=== PATIENT | female | born 1955 | race Caucasian/White ===

== ENCOUNTER 2023-05-11 14:22 | Outpatient (OUT) | payer MEDICARE, OTHER, SELFPAY ==
[2023-05-11 15:42] LABS: Thyroid Stimulating Hormone 0.979 uIU/mL (0.358-3.740)
== END 2023-05-11 14:23 | disposition home or self-care (01) ==
LOC: LAB 14:26
PROVIDERS: PCP Internal Medicine; Visit Provider Internal Medicine
DX: E03.8 Other specified hypothyroidism (principal)
CPT/HCPCS: 36415; 84443

== ENCOUNTER 2023-11-12 14:46 | Outpatient (OUT) | payer MEDICARE, OTHER, SELFPAY ==
--- NOTE | 2023-11-12 14:52 | MM_ITS ---
Patient Name: RENETTA ATWOOD MR#: [id number] : 1955 Exam Date: 11/12/2023 Ordering Doctor: DR Vince Villegas D.O. RADIOLOGY REPORT PROCEDURE: MM TOMOSYNTHESIS SCREENING BI COMPARISON: MG MAMM SCREEN 3D BALTAZAR CAD, 11/05/2022. MG MAMM SCREEN 3D BALTAZAR CAD, 11/01/2021. INDICATIONS: screening Calculator Name NCI Breast Cancer Risk Assessment Tool 5 Year Breast Cancer Risk 3.20% Lifetime Breast Cancer Risk 10.80% Personal Breast Cancer No Personal Ovarian Cancer No Treatments None Family Cancers Mother with breast cancer at age 70; Grandmother-maternal with colon cancer at age 67. LOCATION: [facility] BREAST COMPOSITION: Scattered areas fibroglandular density. FINDINGS: DIAGNOSTIC CATEGORY 1--NEGATIVE. NO CHANGE FROM COMPARISON ASSESSMENT. Scattered benign-appearing calcifications are present. Scattered benign-appearing lymph nodes are present. RIGHT BREAST: No significant suspicious finding. Area focal asymmetry central breast, stable LEFT BREAST: No significant suspicious finding. RECOMMENDATIONS: ROUTINE MAMMOGRAM AND CLINICAL EVALUATION IN 12 MONTHS. PLEASE NOTE: A NORMAL MAMMOGRAM DOES NOT EXCLUDE THE POSSIBILITY OF BREAST CANCER. A CLINICALLY SUSPICIOUS PALPABLE LUMP SHOULD BE BIOPSIED. Dictated by: Phuc Longoria MD on 11/13/2023 at 07:20 Approved by: Phuc Longoria MD on 11/13/2023 at 07:21
== END 2023-11-12 14:47 | disposition home or self-care (01) ==
LOC: MAMMO 14:47
PROVIDERS: PCP Internal Medicine; Visit Provider Internal Medicine
DX: Z12.31 Encounter for screening mammogram for malignant neoplasm of breast (principal); Z80.3 Family history of malignant neoplasm of breast; Z80.0 Family history of malignant neoplasm of digestive organs
CPT/HCPCS: 77063; 77067

== ENCOUNTER 2024-04-04 10:53 | Outpatient (OUT) | payer MEDICARE, OTHER, SELFPAY ==
--- NOTE | 2024-04-04 11:00 | XR_ITS ---
[address] [address] Patient Name: RENETTA ATWOOD MRN: [id number] date: 1955 Sex: F Assigned Patient Location: [facility] Current Patient Location: Accession/Order Number: [id number] Exam Date: 04/04/2024 11:07 Report Date: 04/05/2024 09:43 At the request of: MARYCRUZ SAUCEOD Procedure: XR femur RT 2V PROCEDURE: XR femur RT 2V HISTORY: Atrophy Of Muscle Of Right Lower Leg M62.561 COMPARISON: None. FINDINGS: BONES:No fracture, dislocation, bone lesion. Mild degenerative change of the knee joint. SOFT TISSUES:No visible soft tissue swelling. EFFUSION:None visible. OTHER: Negative. XR/XR femur RT 2V IMPRESSION: 1. No appreciable soft tissue abnormality. Consider MRI of the leg if clinical concern. 2. Mild degenerative changes of the knee joint. Unremarkable hip joint. 3. No acute bone abnormality or suspicious lesion. Electronically authenticated by: ALIS PORTER Date: 04/05/2024 09:43
== END 2024-04-04 10:54 | disposition home or self-care (01) ==
LOC: RAD 10:56
PROVIDERS: PCP Internal Medicine; Visit Provider Internal Medicine
DX: M62.561 Muscle wasting and atrophy, not elsewhere classified, right lower leg (principal)
CPT/HCPCS: 73552

== ENCOUNTER 2024-04-13 09:53 | Outpatient (OUT) | payer MEDICARE, OTHER, SELFPAY ==
--- OUTSIDE RECORDS SUMMARY | 2024-04-13 10:09 | XMS_ITS | CCD ---
Author Organization [facility] Care Team Providers Care Field Tax Auditor Name Role Phone Kalyan Guzman Attending Provider Vince Villegas Primary Care Provider SHERYL, DR JOEL Admitting Unavailable BALL, DR JOEL Attending Unavailable BALL, DR JOEL Primary Care Unavailable BALL, DR JOEL Consulting Unavailable BALL, DR JOEL Admitting Unavailable BALL, DR JOEL Attending Unavailable BALL, DR JOEL Primary Care Unavailable BALL, DR JOEL Consulting Unavailable ZIEBER, DR CABRERA Ly Consulting Unavailable JAROD, DR DRAKE Nguyen Admitting Unavailable JAROD, DR DRAKE Nguyen Attending Unavailable SHERYL, DR JOEL Primary Care Unavailable WEST, DR DRAKE Nguyen Consulting Unavailable Vince Villegas Unavailable Kalyan Guzman Unavailable DO Vince Villegas Primary Care Provider MD Kalyan Guzman Attending Provider Kalyan Guzman Attending Unavailable Kalyan Guzman Admitting Unavailable Vince Villegas Primary Care Unavailable Vince Villegas Primary Care Unavailable Kalyan Guzman Attending Unavailable Kalyan Guzman Admitting Unavailable KELBLEY, FLACO Attending Unavailable SUE, ERIN P Referring Unavailable KELBLEY, FLACO Attending Unavailable SUE, ERIN P Referring Unavailable KELBLEY, FLACO Attending Unavailable SUE, ERIN P Referring Unavailable KAREL CHINCHILLA Attending Unavailable JJ MOTA Referring Unavailable HANH WRIGHT Attending Unavailable SUE, ERIN P Referring Unavailable TATTERSALLHANH Attending Unavailable TATTERSHANH LOZANO Attending Unavailable SUE, ERIN P Referring Unavailable HANH WRIGHT Attending Unavailable JJ MOTA Referring Unavailable Allergies Allergy Classification Reported Allergen(s) Allergy Type Date of Onset Reaction(s) Facility (8 sources) Adhesive agent Drug allergy Unknown Evoz Other (8 sources) Adhesive Tape Drug allergy Unknown Evoz Other Medications Current Medications Medication Drug Class(es) Dates Sig (Normalized) Sig (Original) Cream Base No.47 (Bulk) (Base, Pcca Vanpen) cream (2 sources) Start: 02-13-2021 Cream Base No.47 (Bulk) (Base, Pcca Vanpen) cream Active 1 APPLIC TOPICAL As Directed February 13, 2021 12:00am levothyroxine sodium 0.05 mg oral tablet (11 sources) l-Thyroxine Start: 02-13-2021 take 50 ug by mouth once daily Levothyroxine Active 50 MCG PO Daily February 13, 2021 12:00am take 1 tablet by mouth once blessing y Levothyroxine Sodium 50 mcg TAKE 1 TABLET BY MOUTH DAILY for 30 Active phentermine hydrochloride 37.5 mg oral tablet (9 sources) Sympathomimetic Amine Anorectic Start: 04-13-2023 take 1 tablet by mouth once daily before breakfast Adipex-P 37.5 MG 1 tablet before breakfast Orally Once a day for 30 days May, Active Completed/Discontinued Medications Medication Drug Class(es) Dates Sig (Normalized) Sig (Original) omeprazole 20 mg oral tablet (2 sources) Proton Pump Inhibitor Start: 02-13-2021 End: 06-01-2023 take 20 mg by mouth twice daily Omeprazole Magnesium Discontinued 20 MG PO Twice daily 112 56 February 13, 2021 12:00am June 01, 2023 7:40am triamcinolone acetonide 40 mg/ml injectable suspension (10 sources) Corticosteroid Start: 02-19-2023 Kenalog-40 February, 40 mg Problems Active Problems Problem Classification Problem Date Documented Da te Episodic/Chronic Coagulation and hemorrhagic disorders (9 sources) Thrombocytopenic disorder; Translations: [Thrombocytopenia, unspecified] Chronic Inflammation; infection of eye (except that caused by tuberculosis or sexually transmitteddisease) (1 source) Acute atopic conjunctivitis, unspecified eye Episodic Other ear and sense organ disorders (9 sources) Sensorineural hearing loss, bilateral; Translations: [Sensorineural hearing loss, bilateral] Chronic Other gastrointestinal disorders (10 sources) Dysphagia; Translations: [Dysphagia, unspecified] Episodic Other gastrointestinal disorders (2 sources) Other specified diseases of intestine; Translations: [Other specified diseases of intestine] Onset: 3 Episodic Other nutritional; endocrine; and metabolic disorders (9 sources) Body mass index 30+ - obesity; Translations: [Body mass index (BMI) 30.0-30.9, adult] Chronic Other nutritional; endocrine; and metabolic disorders (9 sources) Obesity; Translations: [Other obesity due to excess calories] Chronic Other nutritional; endocrine; and metabolic disorders (9 sources) Overweight; Translations: [Overweight] Episodic Other nutritional; endocrine; and metabolic disorders (2 sources) Overweight Episodic Other screening for suspected conditions (not mental disorders or infectious disease) (4 sources) Encounter for screening mammogram for malignant neoplasm of breast; Translations: [ENC SCR MAMMO MALIG NEOPLASM BREAST] Onset: 3 Episodic Other upper respiratory disease (10 sources) Allergic rhinitis due to pollen; Translations: [Allergic rhinitis due to pollen] Chronic Other upper respiratory disease (1 source) Allergic rhinitis due to pollen Chronic Residual codes; unclassified (1 source) Family history of malignant neoplasm of breast; Translations: [FAMILY HX MALIG NEOPLASM OF BREAST] Onset: 3 Episodic Residual codes; unclassified (1 source) Family history of malignant neoplasm of digestive organs; Translations: [FAM HX MALIG NEOPLASM DIGESTIV ORGN] Onset: 3 Episodic Thyroid disorders (20 sources) Autoimmune thyroiditis; Translations: [Autoimmune thyroiditis] Chronic Unclassified (1 source) Encounter for screening for malignant neoplasm of colon; Translations: [Encounter for screening for malignant neoplasm of colon] Onset: 3 Viral infection (1 source) COVID-19; Translations: [COVID-19] Onset: 2 Past or Other Problems Problem Classification Problem Date Documented Da te Episodic/Chronic Immunizations and screening for infectious disease (4 sources) Encounter for immunization; Translations: [ENCOUNTER FOR IMMUNIZATION] Onset: 03-06-2022 Episodic Results Test Name Value Interpretation Reference Range Facility CT abdomen pelvis w conon CT abdomen pelvis w [facility] [place] [address] CT Scan Report Signed Patient: Renetta Atwood MR#: [id number] : 1955 Acct:[id number] Age/Sex: 67 / F ADM Date: 06/24/23 Loc: CT Room: Type: [facility] Attending Dr: Kalyan Guzman MD Copies to: Kalyan Guzman MD Ordering Provider: Kalyan Guzman MD Date of Service: 06/24/23 CT/CT abdomen pelvis w con: K63.86 CT ABDOMEN AND PELVIS WITH INTRAVENOUS CONTRAST: CLINICAL HISTORY: Colon polyp. COMPARISON: None TECHNIQUE: Spiral images were obtained through the abdomen and pelvis following the administration of intravenous contrast. This CT exam was performed using one or more following dose reduction techniques: Automated exposure control, adjustment of the mA and/or kV according to patient size, or use of iterative reconstruction technique. FINDINGS: Lung Bases: [Minimal scarring.] Organs:Liver gallbladder portal vein pancreas spleen and adrenal glands appear unremarkable other than a indeterminate lesion involving the spleen measuring 2 cm in greatest axial dimension. Bilateral parapelvic cysts are noted. No enhancing renal mass or hydronephrosis. Abdominal aorta appears normal in caliber.[ GI: Stomach is grossly unremarkable. Small bowel appears nondilated. Left colon diverticulosis. No abnormal wall thickening or inflammatory changes are seen.[ Pelvis:[Urinary bladder is grossly unremarkable. Uterus has been removed. No adnexal mass.] Peritoneum/Retroper itoneum:No free air, free fluid or lymphadenopathy.[ Abd wall/Bones:Abdomina l wall demonstrates no acute findings. Osseous structures demonstrate degenerative change.[ CT/CT abdomen pelvis w con IMPRESSION: 1. No acute findings. No acute colonic abnormality is seen. 2. Colonic diverticulosis. 3. 2 cm indeterminate lesion involving the spleen. Finding is likely benign given that there is no history of cancer. Attention on follow-up is recommended. Impression dictated by: Michael Keenan Jr., D.O.06/24/2023 2:20 PM Dictation Location: [place] [address] Transcribed By: [facility] 06/24/23 1420 Dictated By: Michael Keenan Jr, DO 06/24/23 1418 Signed By: 06/24/23 1420 [facility] Alanine aminotransferase [En zymatic activity/volume] in Serum or PlasmaOrdered By: Kalyan Guzman on 06-01-2023 ALT [Catalytic activity/Vol] 9 U/L 7-52 [facility] Albumin [Mass/volume] in Ser um or Plasma by Bromocresol green (BCG) dye binding methoOrdered By: Kalyan Guzman on 06-01-2023 Albumin BCG dye [Mass/Vol] 4.4 g/dL 3.5-5.7 [facility] Alkaline phosphatase [Enzyma tic activity/volume] in Serum or PlasmaOrdered By: Kalyan Guzman on 06-01-2023 ALP [Catalytic activity/Vol] 72 U/L 34-104 [facility] Aspartate aminotransferase [ Enzymatic activity/volume] in Serum or PlasmaOrdered By: Kalyan Guzman on 06-01-2023 AST [Catalytic activity/Vol] 22 U/L 13-39 [facility] Band form neutrophils/100 WB C Manual cnt (Bld)Ordered By: Kalyan Guzman on 06-01-2023 Band form neutrophils/100 WBC (Bld) 2 % 0-5 [facility] Basophils Auto (Bld) [#/Vol] Ordered By: Kalyan Guzman on 06-01-2023 Basophils (Bld) [#/Vol] N/A F [facility] Basophils/100 WBC Auto (Bld) Ordered By: Kalyan Guzman on 06-01-2023 Basophils/100 WBC (Bld) N/A F [facility] Basophils/100 WBC Manual cnt (Bld)Ordered By: Kalyan Guzman on 06-01-2023 Basophils/100 WBC (Bld) 1 % 0-2 F [facility] Bilirubin.total [Mass/volume ] in Serum or PlasmaOrdered By: Kalyan Guzman on 06-01-2023 Bilirubin [Mass/Vol] 0.9 mg/dL 0.3-1.0 [facility] Calcium [Mass/volume] in Ser um or PlasmaOrdered By: Kalyan Guzman on 06-01-2023 Calcium [Mass/Vol] 9.4 mg/dL 8.6-10.3 [facility] Carbon dioxide, total [Moles /volume] in Serum or PlasmaOrdered By: Kalyan Guzman on 08-14-2023 CO2 [Moles/Vol] 25.2 mmol/L 21.0-31.0 [facility] Chloride [Moles/volume] in S javier or PlasmaOrdered By: Kalyan Guzman on 06-01-2023 Chloride [Moles/Vol] 108 mmol/L 98-107 [facility] Comprehensive Metabolic Pane luis enrique 06-01-2023 Albumin [Mass/Vol] 4.4 g/dL Normal 3.5-5.7 [facility] Comment on above: Performed By: #### D IFF CBC, CEA, CMP #### [facility] [address] Albumin/Globulin [Mass ratio] 1.6 {ratio} Normal [facility] Comment on above: Performed By: #### D IFF CBC, CEA, CMP #### [facility] [address] ALP [Catalytic activity/Vol] 72 U/L Normal 34-104 [facility] Comment on above: Performed By: #### D IFF CBC, CEA, CMP #### [facility] [address] ALT [Catalytic activity/Vol] 9 U/L Normal 7-52 [facility] Comment on above: Performed By: #### D IFF CBC, CEA, CMP #### [facility] [address] Anion gap [Moles/Vol] 10.9 mmol/L Normal 6.0-15.0 [facility] Comment on above: Performed By: #### D IFF CBC, CEA, CMP #### [facility] [address] [place] [address] [place] AST [Catalytic activity/Vol] 22 U/L Normal 13-39 [facility] Comment on above: Performed By: #### D IFF CBC, CEA, CMP #### [facility] [address] [place] [address] [place] Bilirubin [Mass/Vol] 0.9 mg/dL Normal 0.3-1.0 [facility] Comment on above: Performed By: #### D IFF CBC, CEA, CMP #### [facility] [address] Calcium [Mass/Vol] 9.4 mg/dL Normal 8.6-10.3 [facility] Comment on above: Performed By: #### D IFF CBC, CEA, CMP #### [facility] [address] Chloride [Moles/Vol] 108 mmol/L High 98-107 [facility] Comment on above: Performed By: #### D IFF CBC, CEA, CMP #### [facility] [address] CO2 [Moles/Vol] 25.2 mmol/L Normal 21.0-31.0 [facility] Comment on above: Performed By: #### D IFF CBC, CEA, CMP #### [facility] [address] Creatinine [Mass/Vol] 0.72 mg/dL Normal 0.60-1.20 [facility] Comment on above: Performed By: #### D IFF CBC, CEA, CMP #### [facility] [address] Creatinine Clr Calc Pharmacy 68.33 [facility] Comment on above: Result Comment: PERF ORMED BY: [place] [address] PATHOLOGIST SCRAP WORKER ESTEE KAPOOR M.D. Performed By: #### D IFF CBC, CEA, CMP #### [facility] [address] GFR/1.73 sq M.predicted MDRD (S/P/Bld) [Vol rate/Area] mL/min/{1.73_m2} [facility] Comment on above: Performed By: #### D IFF CBC, CEA, CMP #### [facility] [address] Globulin (S) [Mass/Vol] 2.7 g/dL Normal [facility] Comment on above: Performed By: #### D IFF CBC, CEA, CMP #### [facility] [address] [place] [address] [place] Glucose [Mass/Vol] 89 mg/dL Normal 70-100 [facility] Comment on above: Result Comment: [facility] Glucose Reference Range is dependent on time and content of last meal. Glucose of more than 200 mg/dL in a nonstressed, ambulatory subject supports the diagnosis of Diabetes Mellitus. ADA recommended reference range Performed By: #### D IFF CBC, CEA, CMP #### [facility] [address] Potassium [Moles/Vol] 4.1 mmol/L Normal 3.5-5.1 [facility] Comment on above: Performed By: #### D IFF CBC, CEA, CMP #### [address] Protein [Mass/Vol] 7.1 g/dL Normal 6.4-8.9 [facility] Comment on above: Performed By: #### D IFF CBC, CEA, CMP #### [place] [address] [place] Sodium [Moles/Vol] 140 mmol/L Normal 136-145 [facility] Comment on above: Performed By: #### D IFF CBC, CEA, CMP #### [place] [address] [place] Urea nitrogen [Mass/Vol] 14 mg/dL Normal 7-25 [facility] Comment on above: Performed By: #### D IFF CBC, CEA, CMP #### [facility] [address] [place] [address] [place] Creatinine [Mass/volume] in Serum or PlasmaOrdered By: Kalyan Guzman on 06-01-2023 Creatinine [Mass/Vol] 0.72 mg/dL 0.60-1.20 [facility] Diff and CBCon 06-01-2023 Band form neutrophils/100 WBC (Bld) 2 % Normal 0-5 [facility] Comment on above: Performed By: #### D IFF CBC, CEA, CMP #### [facility] [address] [place] [address] Basophils/100 WBC (Bld) 1 % Normal 0-2 F [facility] Comment on above: Performed By: #### D IFF CBC, CEA, CMP #### [address] Eosinophils/100 WBC (Bld) 1 % Normal 1-3 [facility] Comment on above: Performed By: #### D IFF CBC, CEA, CMP #### [address] Erythrocyte distribution width (RBC) [Ratio] 13.8 % Normal 11.9-15.3 [facility] Comment on above: Performed By: #### D IFF CBC, CEA, CMP #### [address] Hematocrit (Bld) [Volume fraction] 42.6 % Normal 34.0-46.4 [facility] Comment on above: Performed By: #### D IFF CBC, CEA, CMP #### [address] Hemoglobin (Bld) [Mass/Vol] 13.9 g/dL Normal 11.8-15.4 [facility] Comment on above: Performed By: #### D IFF CBC, CEA, CMP #### [address] Lymphocytes/100 WBC (Bld) 22 % Normal 18-42 [facility] Comment on above: Performed By: #### D IFF CBC, CEA, CMP #### [address] MCH (RBC) [Entitic mass] 29.2 pg Normal 24.7-34.3 [facility] Comment on above: Performed By: #### D IFF CBC, CEA, CMP #### [address] MCV (RBC) [Entitic vol] 89.2 fL Normal 80-100 F [facility] Comment on above: Performed By: #### D IFF CBC, CEA, CMP #### [address] [place] [address] [place] Mean Corpuscular HGB Conc 32.8 g/dL Normal 32.0-35.0 [facility] Comment on above: Performed By: #### D IFF CBC, CEA, CMP #### [facility] [address] Monocytes/100 WBC (Bld) 20 % High 2-11 F [facility] Comment on above: Performed By: #### D IFF CBC, CEA, CMP #### [facility] [address] Platelet Estimate Normal Normal Normal [facility] Comment on above: Performed By: #### D IFF CBC, CEA, CMP #### [address] Platelet mean volume (Bld) [Entitic vol] 7.8 fL Normal 6.3-10.7 [facility] Comment on above: Performed By: #### D IFF CBC, CEA, CMP #### [address] Platelet Morphology Normal Normal Normal [facility] Comment on above: Result Comment: PERF ORMED BY: [place] [address] PATHOLOGIST SCRAP WORKER ESTEE KAPOOR M.D. Performed By: #### D IFF CBC, CEA, CMP #### [place] [address] [place] Platelets (Bld) [#/Vol] 157 10*3/uL Normal 150-450 [facility] Comment on above: Performed By: #### D IFF CBC, CEA, CMP #### [place] [address] [place] RBC (Bld) [#/Vol] 4.77 10*6/uL Normal 3.60-5.00 [facility] Comment on above: Performed By: #### D IFF CBC, CEA, CMP #### [address] RBC morphology finding Nom (Bld) Normal Normal Normal [facility] Comment on above: Performed By: #### D IFF CBC, CEA, CMP #### [facility] [address] [place] [address] [place] Segmented neutrophils/100 WBC (Bld) 54 % Normal 50-70 [facility] Comment on above: Performed By: #### D IFF CBC, CEA, CMP #### [facility] [address] [place] [address] [place] WBC (Bld) [#/Vol] 4.9 10*3/uL Normal 3.8-11.6 [facility] Comment on above: Performed By: #### D IFF CBC, CEA, CMP #### [facility] [address] [place] [address] [place] Eosinophils Auto (Bld) [#/Vo l]Ordered By: Kalyan Guzman on 06-01-2023 Eosinophils (Bld) [#/Vol] N/A [facility] Eosinophils/100 WBC Auto (Bl d)Ordered By: Kalyan Guzman on 06-01-2023 Eosinophils/100 WBC (Bld) N/A [facility] Eosinophils/100 WBC Manual c nt (Bld)Ordered By: Kalyan Guzman on 06-01-2023 Eosinophils/100 WBC (Bld) 1 % 1-3 [facility] Erythrocyte distribution wid th Auto (RBC) [Ratio]Ordered By: Kalyan Guzman on 06-01-2023 Erythrocyte distribution width (RBC) [Ratio] 13.8 % 11.9-15.3 [facility] Globulin Calc (S) [Mass/Vol] Ordered By: Kalyan Guzman on 06-01-2023 Globulin (S) [Mass/Vol] 2.7 g/dL F [facility] Glucose [Mass/volume] in Ser um or PlasmaOrdered By: Kalyan Guzman on 06-01-2023 Glucose [Mass/Vol] 89 mg/dL 70-100 [facility] Comment on above: ADA recommended refe rence rangeRandom Glucose Reference Range is dependent on time and content of last meal. Glucose of more than 200 mg/dL in a nonstressed, ambulatory subject supports the diagnosis of Diabetes Mellitus. Hematocrit Auto (Bld) [Volum e fraction]Ordered By: Kalyan Guzman on 06-01-2023 Hematocrit (Bld) [Volume fraction] 42.6 % 34.0-46.4 [facility] Hemoglobin [Mass/volume] in BloodOrdered By: Kalyan Guzman on 06-01-2023 Hemoglobin (Bld) [Mass/Vol] 13.9 g/dL 11.8-15.4 [facility] Luis Enrique 06-01-2023 L Specimen: [id number] Received: 06/01/23 Status: DERRELL Lester Num: [id number] Spec Type: Surgical Subm Dr: Kalyan Guzman MD Tissues: A Colon Biopsy (TRANSVERSE POLYP) B Colon Biopsy (DESCENDING POLYP) Procedures: JJ/Demetris, Ugo/Fiorella L4/2 Age/ Patient Sex Location Account Attending Physician Renetta Atwood 67/F [id number] Kalyan Guzman MD SPEC NUM: [id number] RECD: 06/01/23 STATUS: DERRELL BATISTA NUM: [id number] TONYA: 06/01/23 DR: Kalyan Guzman MD ENTERED: 06/01/23 [facility] DR: SPEC TYPE: Surgical DEPT: S ORDERED: HE/4, Gross/Micro L4/2 ORDERED: HE/4, Gross/Micro L4/2 Pathological Diagnosis A. Colon, transverse, polyp, biopsy: - Fragments of tubular adenoma(s) B. Colon, descending, polyp, biopsy: - Fragments of tubulovillous adenoma(s) Clinical Information Screen Gross Description A. Received in formalin labeled with the patient's name, date of and transverse polyp are two cruz tissues averaging 0.3 cm. Entirely submitted in one cassette labeled A1. B. Received in formalin labeled with the patient's name, date of and descending polyp are multiple cruz tissues measuring 2.3 x 0.7 x 0.3 cm in aggregate. Entirely submitted in one cassette labeled B1. Specimen: [id number] Received: 06/01/23 Status: DERRELL Batista Num: [id number] Spec Type: Surgical Subm Dr: Kalyan Guzman MD Tissues: A Colon Biopsy (TRANSVERSE POLYP) B Colon Biopsy (DESCENDING POLYP) Procedures: HE/4, Gross/Micro L4/2 Patient: Renetta Atwood [id number] (Continued) Specimen: [id number] Received: 06/01/23 (Continued) Signed (signatur e on file) Mike Chen MD 06/03/23 0952 Specimen: [id number] Received: 06/01/23 Status: DERRELL Batista Num: [id number] Spec Type: Surgical Subm Dr: Kalyan Guzman MD Tissues: A Colon Biopsy (TRANSVERSE POLYP) B Colon Biopsy (DESCENDING POLYP) Procedures: JJ/Demetris, Gross/Micro L4/2 Patient: Renetta Atwood [id number] (Continued) Specimen: [id number] Received: 06/01/23 (Continued) Microscopic Description A. Two H E slides reviewed. The microscopic examination confirms the diagnosis. B. Two H E slides reviewed. The microscopic examination confirms the diagnosis. CPT Codes 72754y two Specimen: [id number] Received: 06/01/23 Status: DERRELL Batista Num: [id number] Spec Type: Surgical Subm Dr: Kalyan Guzman MD Tissues: A Colon Biopsy (TRANSVERSE POLYP) B Colon Biopsy (DESCENDING POLYP) Procedures: HE/Demetris, Gross/Micro L4/2 Patient: Renetta Atwood [id number] (Continued) Signed (signatur e on file) Mike Chen MD 06/03/23 0952 Normal [facility] Leukocytes [#/volume] correc rajesh for nucleated erythrocytes in Blood by Automated counOrdered By: Kalyan Guzman on 06-01-2023 WBC corrected for nucl RBC Auto (Bld) [#/Vol] 4.9 10*3/uL 3.8-11.6 [facility] Lymphocytes Auto (Bld) [#/Vo l]Ordered By: Kalyan Guzman on 06-01-2023 Lymphocytes (Bld) [#/Vol] N/A [facility] Lymphocytes/100 WBC Auto (Bl d)Ordered By: Kalyan Guzman on 06-01-2023 Lymphocytes/100 WBC (Bld) N/A [facility] Lymphocytes/100 WBC Manual c nt (Bld)Ordered By: Kalyan Guzman on 06-01-2023 Lymphocytes/100 WBC (Bld) 22 % 18-42 [facility] MCH Auto (RBC) [Entitic mass ]Ordered By: Kalyan Guzman on 06-01-2023 MCH (RBC) [Entitic mass] 29.2 pg 24.7-34.3 [facility] MCHC Auto (RBC) [Mass/Vol]Or dered By: Kalyan Guzman on 06-01-2023 MCHC (RBC) [Mass/Vol] 32.8 g/dL 32.0-35.0 [facility] MCV Auto (RBC) [Entitic vol] Ordered By: Kalyan Guzman on 06-01-2023 MCV (RBC) [Entitic vol] 89.2 fL 80-100 F [facility] Monocytes Auto (Bld) [#/Vol] Ordered By: Kalyan Guzman on 06-01-2023 Monocytes (Bld) [#/Vol] N/A F [facility] Monocytes/100 WBC Auto (Bld) Ordered By: Kalyan Guzman on 06-01-2023 Monocytes/100 WBC (Bld) N/A F [facility] Monocytes/100 WBC Manual cnt (Bld)Ordered By: Kalyan Guzman on 06-01-2023 Monocytes/100 WBC (Bld) 20 % 2-11 F [facility] Neutrophils Auto (Bld) [#/Vo l]Ordered By: Kalyan Guzman on 06-01-2023 Neutrophils (Bld) [#/Vol] N/A [facility] Neutrophils/100 WBC Auto (Bl d)Ordered By: Kalyan Guzman on 06-01-2023 Neutrophils/100 WBC (Bld) N/A [facility] No Panel InformationOrdered By: Kalyan Guzman on 06-01-2023 Estimated GFR (CKD-EPI) > 60.0 mL/Min [facility] Creatinine Clearance (Chem 68.33 [facility] Nucleated erythrocytes [Pres ence] in Blood by Automated countOrdered By: Kalyan Guzman on 06-01-2023 Nucleated RBC Auto Ql (Bld) N/A [facility] Platelet adequacy [Presence] in Blood by Light microscopyOrdered By: Kalyan Guzman on 06-01-2023 Platelets LM Ql (Bld) Normal Normal [facility] Platelet mean volume Auto (B ld) [Entitic vol]Ordered By: Kalyan Guzman on 06-01-2023 Platelet mean volume (Bld) [Entitic vol] 7.8 fL 6.3-10.7 [facility] Platelet morphology finding [Identifier] in BloodOrdered By: Kalyan Guzman on 06-01-2023 Platelet morphology finding Nom (Bld) Normal Normal [facility] Platelets Auto (Bld) [#/Vol] Ordered By: Kalyan Guzman on 06-01-2023 Platelets (Bld) [#/Vol] 157 10*3/uL 150-450 [facility] Potassium [Moles/volume] in Serum or PlasmaOrdered By: Kalyan Guzman on 06-01-2023 Potassium [Moles/Vol] 4.1 mmol/L 3.5-5.1 [facility] Protein [Mass/volume] in Ser um or PlasmaOrdered By: Kalyan Guzman on 06-01-2023 Protein [Mass/Vol] 7.1 g/dL 6.4-8.9 [facility] RBC Auto (Bld) [#/Vol]Ordere d By: Kalyan Guzman on 06-01-2023 RBC (Bld) [#/Vol] 4.77 10*6/uL 3.60-5.00 [facility] RBC morphologyOrdered By: Barbi Guzman on 06-01-2023 RBC morphology finding Nom (Bld) Normal Normal [facility] Segmented neutrophils/100 WB C Manual cnt (Bld)Ordered By: Kalyan Guzman on 06-01-2023 Segmented neutrophils/100 WBC (Bld) 54 % 50-70 [facility] Serum or plasma albumin/glob ulin mass ratioOrdered By: Kalyan Guzman on 06-01-2023 Albumin/Globulin [Mass ratio] 1.6 {ratio} [facility] Serum or plasma anion gap de terminationOrdered By: Kalyan Guzman on 06-01-2023 Anion gap [Moles/Vol] 10.9 mmol/L 6.0-15.0 [facility] Serum or plasma carcinoembry onic antigen measurement (mass/volume)Ordered By: Kalyan Guzman on 06-01-2023 Carcinoembryonic Ag [Mass/Vol] 1.6 ng/mL 0.0-3.0 [facility] Sodium [Moles/volume] in Ser um or PlasmaOrdered By: Kalyan Guzman on 06-01-2023 Sodium [Moles/Vol] 140 mmol/L 136-145 [facility] Urea nitrogen [Mass/volume] in Serum or PlasmaOrdered By: Kalyan Guzman on 08-14-2023 Urea nitrogen [Mass/Vol] 14 mg/dL 7-25 [facility] WBC Auto (Bld) [#/Vol]Ordere d By: Kalyan Diingris on 06-01-2023 WBC (Bld) [#/Vol] 4.9 10*3/uL 3.8-11.6 [facility] MG MAMM SCREEN 3D BALTAZAR CADon 11-05-2022 MG MAMM SCREEN 3D BALTAZAR CAD Patient: RENETTA ATWOOD Exam Date: 11/05/2022 : 1955 Gender:F Ordering : DR VINCE VILLEGAS D.O. Admission #: [id number] Family : Order #: [id number] CLICK HERE TO VIEW EXAM RADIOLOGY REPORT PROCEDURE: MAMMOGRAM SCREENING 3D BILATERAL CAD COMPARISON: MG MAMM SCREEN BALTAZAR W CAD, 09/22/2019. MG MAMM SCREEN BALTAZAR W CAD, 10/16/2020. MG MAMM SCREEN 3D BALTAZAR CAD, 11/01/2021. INDICATIONS: Screening mammography Calculator Name NCI Breast Cancer Risk Assessment Tool 5 Year Breast Cancer Risk 3.20% Lifetime Breast Cancer Risk 11.30% Personal Breast Cancer No Personal Ovarian Cancer No Treatments None Family Cancers Mother with breast cancer at age 70; Grandmother-materna l with colon cancer at age 67. LOCATION: [facility] BREAST COMPOSITION: Scattered areas fibroglandular density. FINDINGS: DIAGNOSTIC CATEGORY 2--BENIGN FINDING. NO CHANGE FROM COMPARISON. Scattered benign-appearing nodules are present. Scattered benign-appearing calcifications are present. Scattered benign-appearing lymph nodes are present. RIGHT BREAST: No significant suspicious finding. LEFT BREAST: No significant suspicious finding. RECOMMENDATIONS: ROUTINE MAMMOGRAM AND CLINICAL EVALUATION IN 12 MONTHS. PLEASE NOTE: A NORMAL MAMMOGRAM DOES NOT EXCLUDE THE POSSIBILITY OF BREAST CANCER. A CLINICALLY SUSPICIOUS PALPABLE LUMP SHOULD BE BIOPSIED. Dictated by: Cabrera Preciado M.D. on 11/05/2022 at 10:01 Approved by: Cabrera Preciado M.D. on 11/05/2022 at 10:05 Normal [facility] CNOVon 12-17-2021 CNOV Office Visit (OTAUCR) ---- RENETTA ATWOOD ([id number]) 1955 F Date Time Provider Department 12/17/21 12:30 PM ELIZABETH DHALIWAL During your visit today, we recorded the following information about you: PAOLO Pearl 12/25/2021 2:20 PM Signed [facility] [place] [facility], Speech and Balance Services COCHLEAR IMPLANT ADULT PROGRAMMING Name: Renetta Atwood CC#: [id number] Date of Service: December 17, 2021 Date of : 1955 Age: [age] year old COCHLEAR IMPLANT INFORMATION (see below for all device details) Updated: December 17, 2021 ? Right ear: Phonak Audeo B90-13 [employer] fit and managed at an outside facility ? Left ear: ? External Processor: Cochlear HiGear AF5205 (Nucleus 7)? Processor SN: [id number]? Magnet strength: 2 ? Internal Device: Cochlear CI532 Profile with Slim Modiolar Electrode Array Internal Device SN: [id number] ?Inactiv e electrodes: ?1-5, 22-21?(non-auditory percept; pressure) ? Surgery Date: 03/01/2018 Initial Activation Date: 03/30/2018?? Surgeon: Hope Velasco M.D. ? Accessories:?? Remote Control Mini Microphone 2+ Phone Clip Aqua+ Kit? HISTORY: Ms. Atwood was seen for troubleshooting and annual evaluation of the device. The patient reported: - Processor was making a static noise and cutting out when she turned her head. She ordered a replacement coil/cable but was unable to remove the magnet from her malfunctioning cable. She brought the new cable to change today. - Changes microphone covers every 3 months - Has been generally hearing well but does rely on visual cues - Contralateral hearing aid is managed at an office near her house (device is 7 years old) - Has not taken wireless accessories out of the box - No pain or problems at the magnet site. PROMIS Global Health Scale 07/04/2020 02/20/2017 Physical Health Percentile 53 53 Mental Health Percentile 43 5 AIDED AUDIOMETRIC TESTING: Audiologic testing was completed in the sound field with the speech processor(s) at user settings (Program: 1; Volume: 6; Sensitivity: 12.) after programming. See the SmartForm Audiogram for obtained thresholds. Speech perception testing was completed at 60 production artist using recorded stimuli in the sound field at 0 degrees azimuth. NOTE: The contralateral ear was plugged and muffed or masked during testing. The following testing and results were obtained: Psbcawkpf-Ypracko-X onsonant Words (CNC) Test Condition List # Phonemes Words Clinically significant change compared to previous visit? Clinically significant change compared to BEST? Clinically significant change compared to Evaluation (04/08/2017)? Left Ear 1 (words 1-25) 71% 48% yes, improved (28% on 04/06/2019) no (32% on 10/13/2018/) no (24%) Bimodal 2 (words 1-25) 84% 64% no (64% on 04/06/2019) no (72% on 04/06/2019) no (68%) AZ BIO (quiet) Test Condition List # Score Clinically significant change compared to previous visit? Clinically significant change compared to BEST? Clinically significant change compared to Evaluation (04/08/2017)? Left Ear 1 74% yes, improved (41% on 04/06/2019) yes, improved (40% on 10/13/18) yes, improved (21%) Bimodal DNT DNT 93% on 04/06/2019 93% on 04/06/2019 91% AZ BIO (+5 SNR) Test Condition List # Score Clinically significant change compared to previous visit? Clinically significant change compared to BEST? Clinically significant change compared to Evaluation (04/08/2017)? Left Ear 2 0% no (0% on 04/06/2019) no (0% on 04/06/2019) DNT Bimodal 3 42% no (34% on 04/06/2019) no (53% on 05/05/18) no (31%) Summary: Aided detection was obtained in the expected range from 250-6000 Hz. Aided speech perception scores with the CI-only are improved compared to last and best testing with speech in quiet. Bimodal scores are stable. COCHLEAR IMPLANT PROGRAMMING/TROUBLE SHOOTING: Troubleshooting: Removed magnet from old coil/cable and replaced in new one. The static sound went away but she was unsure if the processor was still cutting out. If processor cuts out at home, recommend requesting a replacement processor. Batteries are all losing charge quickly. Placed RMA for battery in portal to arrive at her house. Dataloggin.2 hours LEFT Programming: Headset pressure, magnet strength, and incision site were checked with no problems noted. Electrode impedances, used to monitor internal device function, were measured across the electrode array. Impedances were WNL across all active electrodes. Review of impedances obtained today with comparison to previous 4 visits and 60-day postactivation baseline did not identify any remarkable changes or atypical measurements. Programming consisted of setting Comfort (C) levels at loud, but comfortable using a loudness scale. Several active electrodes were measured and the rest were interpolat (more content not included)... Normal [facility] CT LOWER EXTREMITY WO CON RT on 06-17-2021 CT LOWER EXTREMITY WO CON RT STUDY: CT of the right hip without intravenous contrast dated 06/17/2021. INDICATION: RIGHT HIP PAIN COMPARISON: None. ACCESSION NUMBER(S): [id number] ORDERING CLINICIAN: Kameron Anthony TECHNIQUE: Axial CT of the right hip was performed without intravenous contrast. Sagittal and coronal 2 dimensional reformats were obtained. FINDINGS: OSSEOUS STRUCTURES AND JOINTS: No fracture or dislocation is evident. Mild degenerative changes seen the right sacroiliac joint. Severe degenerative changes marginally seen at lumbosacral junction of the spine. Severe degenerative changes seen of pubic symphysis mild degenerative changes seen of the right hip. MUSCLES AND TENDONS: Muscles and tendons are grossly unremarkable as seen on CT. ASSOCIATED SOFT TISSUES: There is a prominent region fat replacement in the gluteus minimus muscle. It appears to be focal. Muscles and tendons are otherwise intact. IMPRESSION: 1. Degenerative changes above without osseous injury evident. 2. Prominent region of fat replacement in the right gluteus minimus muscle. It is uncertain whether this is atrophy or intramuscular lipomatous mass. MRI is recommended for further assessment. Normal [facility] COVID-19 Positive/Negativeon 02-11-2021 SARS-CoV-2 (COVID-19) N gene MAULIK+probe Ql (Resp) Negative Negative [facility] Comment on above: Testing for SARS-CoV -2 by RT-PCRThis test was developed and its performance characteristics determined by [employer] and validated at the [facility]. This test has not been FDA cleared or approved. This test has been authorized by FDA under an Emergency Use Authorization (EUA). This test has been validated in accordance with the FDA's Guidance Document (Policy for Diagnostics Testing in Laboratories Certified to Perform High Complexity Testing under CLIA prior to Emergency Use Authorization for Coronavirus Disease-2019 during the Public Health Emergency) issued on January 19, 2020. This test is only authorized for the duration of time the declaration that circumstances exist justifying the authorization of the emergency use of in vitro diagnostic tests for detection of SARS-CoV-2 virus and/or diagnosis of COVID-19 infection under section 564(b)(1) of the Act, 21 U.S.C. 360bbb-3(b)(1), unless the authorization is terminated or revoked sooner. Laboratory - Microbiology an d Antimicrobial susceptibilityon 02-11-2021 SARS-CoV-2 (COVID-19) RNA MAULIK+probe Ql (Unsp spec) N/A [facility] Vital Signs Date Time Vital Sign Value Performing Clinician Facility 06-01-2023 09:09-0400 Diastolic blood pressure 50 mm[Hg] DO [employer] Work Phone: [facility] 06-01-2023 09:09-0400 Heart rate 74 /min DO [employer] Work Phone: [facility] 06-01-2023 09:09-0400 Respiratory rate 16 /min DO [employer] Work Phone: [facility] 06-01-2023 09:09-0400 SaO2% (BldA) [Mass fraction] 99 % DO [employer] Work Phone: [facility] 06-01-2023 09:09-0400 Systolic blood pressure 94 mm[Hg] DO [employer] Work Phone: [facility] 06-01-2023 07:35-0400 Body height 162.56 cm DO [employer] Work Phone: [facility] 06-01-2023 07:35-0400 Body weight 74.38 kg DO Vince Villegas Work Phone: [facility] 05-13-2023 09:30-0400 Body height 162.56 cm Vince Ball Other [facility] Other 05-13-2023 09:30-0400 Body mass index (BMI) [Ratio] 28.94 kg/m2 Vince Ball Other [facility] Other 05-13-2023 09:30-0400 Body weight 76.48 kg Vince Ball Other [facility] Other 05-13-2023 09:30-0400 Diastolic blood pressure 80 mm[Hg] Vince Ball Other [facility] Other 05-13-2023 09:30-0400 Respiratory rate 12 /min Vince Ball Other [facility] Other 05-13-2023 09:30-0400 Systolic blood pressure 119 mm[Hg] Vince Villegas Other [facility] Other Encounters Encounter Date Encounter Type Care Provider Facility Start: 11-16-2023 End: 11-16-2023 ambulatory Vince Villegas Other [facility] Other Start: 11-16-2023 Telephone encounter Vince Villegas [facility] Start: 10-30-2023 End: 10-30-2023 ambulatory Vince Villegas Other [facility] Other Start: 10-30-2023 Telephone encounter Vince Villegas [facility] Start: 10-22-2023 End: 10-22-2023 ambulatory FLACO KELBLEY Not Available Start: 10-16-2023 End: 10-16-2023 ambulatory FLACO KELBLEY Not Available Start: 10-14-2023 End: 10-14-2023 ambulatory FLACO KELBLEY Not Available Start: 10-08-2023 End: 10-08-2023 ambulatory HANH WRIGHT Not Available Start: 10-05-2023 End: 10-05-2023 ambulatory HANH WRIGHT Not Available Start: 10-01-2023 End: 10-01-2023 ambulatory HANH REDDYALL Not Available Start: 09-28-2023 End: 09-28-2023 ambulatory HANH WRIGHT Not Available Start: 09-24-2023 End: 09-24-2023 ambulatory KAREL CHINCHILLA Not Available Start: 08-10-2023 End: 08-10-2023 ambulatory Vince Villegas Other [facility] [employer] Other Start: 08-10-2023 Telephone encounter [facility] Start: 06-24-2023 End: 06-24-2023 ambulatory Vince Villegas Facility:[facility] Start: 06-24-2023 End: 06-24-2023 ambulatory DO Vince Villegas Work Phone: [facility] Work Phone: Start: 06-24-2023 End: 06-24-2023 Patient encounter procedure DO Vince Villegas Work Phone: [facility]-CT [facility] [place] Work Phone: Start: 06-02-2023 End: 06-02-2023 ambulatory Kalyan Guzman Other [facility] [employer] Other Start: 06-02-2023 Telephone encounter Kalyan [facility] Start: 06-01-2023 Telephone encounter [facility] Start: 06-01-2023 End: 06-01-2023 ambulatory Kalyan Guzman Facility:[facility] Start: 06-01-2023 End: 06-01-2023 Admission to same day surgery center DO Vince Villegas Work Phone: [facility] Work Phone: Start: 06-01-2023 End: 06-01-2023 ambulatory DO Vince Villegas Work Phone: [facility] Work Phone: Start: 05-25-2023 End: 05-25-2023 ambulatory Vince Villegas Other [facility] Other Start: 05-25-2023 Telephone encounter Vicne PAREDES [facility] Start: 05-13-2023 End: 05-13-2023 ambulatory Vince Villegas Other [facility] Other Start: 05-13-2023 Office outpatient visit [address] [facility] Start: 04-07-2023 End: 04-07-2023 ambulatory Kalyan Guzman Other [facility] Other Start: 04-07-2023 Telephone encounter Kalyan Andrews [facility] [employer] Start: 02-19-2023 End: 02-19-2023 ambulatory Vince Villegas Other [facility] Other Start: 02-19-2023 Nursing evaluation o f patient and report Vince Villegas [facility] Start: 11-05-2022 End: 11-06-[address] VINCE VILLEGAS Facility:[facility] Start: 10-14-2022 End: 01-23-[address] DRAKE OLIVERA Facility:[facility] Start: 03-06-2022 End: 03-06-[address] VINCE VILLEGAS Facility:[facility] Start: 02-11-2021 End: 02-11-2021 Patient encounter procedure Kalyan Guzman Work Phone: -Pre-Surgical Testing Procedures Date Procedure Procedure Detail Performing Clinician Start: 06-24-2023 Computed tomography of abdomen and pelvis with contrast DO Vince Villegas Work Phone: Start: 06-01-2023 Carcinoembryonic antigen cea Kalyan Guzman Comment on above: Result Comment: PERF ORMED BY: [facility] [address] [place] [address] PATHOLOGIST SCRAP WORKER ESTEE KAPOOR M.D. Performed By: #### D IFF CBC, CEA, CMP #### [facility] [address] [place] [address] Start: 06-01-2023 Screening colonoscopy Kwesi Villegas Work Phone: Plan of Treatment Date Care Activity Detail Author Start: 06-01-2023 End: 06-01-2023 [facility] Patient Education Colon polyps H emorrhoids (DC) Diverticulosis (DC) [facility] Work Phone: Immunizations Immunization Date Immunization Notes Care Provider Fa cili 10-05-2021 COVID-19 Vaccine Pfi zer - Documentation Purposes Only Kalyan Guzman Other [facility] Other 04-04-2021 COVID-19 Vaccine Pfi zer - Documentation Purposes Only Kalyan Guzman Other [facility] Other 03-14-2021 COVID-19 Vaccine Pfi zer - Documentation Purposes Only Kalyan Guzman Other [facility] Other 06-24-2018 pneumococcal polysaccharide vaccine, 23 valent Kalyan Guzman Other [facility] Other 02-01-2018 pneumococcal conjuga te vaccine, 13 valent Kalyan Guzman Other [facility] Other Payers Date Payer Category Payer Medicare [id number] 1958 Self-pay [id number] 1958 Unknown [id number] 1955 Unknown [id number] 2.16.84 [id number] 1955 Unknown [id number] 2.16.84 0.1.655432.3.579.2.593 1955 Unknown [id number] 2.16.84 0.1.023293.3.579.2.593 1955 Unknown [id number] 2.16.840 .1.605396.3.579.2.1259 1955 Unknown [id number] 2.16.840 .1.242945.3.579.2.1259 1955 Unknown [id number] 2.16.840 .1.268038.3.579.2.1259 1955 Unknown [id number] 2.16.840 .1.086002.3.579.2.1259 1955 Unknown [id number] 2.16.840 .1.814419.3.579.2.1259 1955 Unknown [id number] 2.16.840 .1.632742.3.579.2.1259 1955 Unknown [id number] 2.16.840 .1.484923.3.579.2.1259 1955 Unknown [id number] 2.16.840 .1.183225.3.579.2.1259 Medicaid [id number] Unknown [id number] 2.16.8 [id number] Unknown [id number] 2.16.8 40.1.256029.3.579.2.531 Social History Date Type Detail Facility Tobacco smoking status NHIS Unknown if ever smoked [facility] Start: 1955 Sex Assigned At Female F [facility] Sex Assigned At Sex Assigned At Bir th [facility] Other Start: 06-01-2023 Tobacco smoking status NHIS Never smoked tobacco (finding) [facility] Goals Date Patient Goal Desired Activity /State Clinical Notes 12-17-2021 to 06-02-2023 Note Date & Type Note Facility 06-02-2023 Evaluation note Encounter Date Diagnosis Assessment Notes May, Mass of colon (ICD-10 - K63.89) [facility] Other 08-14-2023 Procedure [facility]08-07-2023 Evaluation note* Encounter Date Diagnosis Assessment Notes Treatment Notes Treatment Clinical Notes May, Overweight (ICD-10 - E66.3) [facility] Other 07-26-2023 Evaluation note* Encounter Date Diagnosis Assessment Notes Treatment Notes Treatment Clinical Notes Apr, Overweight (ICD-10 - E66.3) This patient has been instructed on a low-fat, high-fiber diet. They are instructed to reduce calories, portion sizes and snacks. It is recommended that they exercise for 30 minutes, 3-5 times weekly. Apr, Autoimmune thyroiditis (ICD-10 - E06.3) Euthyroid, checking TSH yearly Apr, Other specified hypothyroidism (ICD-10 - E03.8) [facility] Other 05-04-2023 Evaluation note* Encounter Date Diagnosis Assessment Notes Treatment Notes Treatment Clinical Notes February, Seasonal allergic conjunctivitis (ICD-10 - H10.10) February, Seasonal allergic rhinitis due to pollen (ICD-10 - J30.1) [facility] Other 03-01-2022 NoteHNO ID: [id number] Author: PAOLO Pearl Service: ? Author Type: [employer] Supervisor Type: Progress Notes Filed: 12/25/2021 2:20 PM Note Text: [facility] [place] [facility], Speech and Balance [facility] COCHLEAR IMPLANT ADULT PROGRAMMING Name: Renetta Atwood [facility]#: [id number] Date of Service: December 17, 2021 Date of : 1955 Age: [age] year old COCHLEAR IMPLANT INFORMATION (see below for all device details) Updated: December 17, 2021 ? Right ear: Asmitakatie Brandi B90-13 RITE fit and managed at an outside facility ? Left ear: ? External Processor: Cochlear [employer]pen[employer] [id number] (Nucleus 7)? Processor SN: [id number]? Magnet strength: 2 ? Internal Device: Cochlear CI532 Profile with Slim Modiolar Electrode Array Internal Device SN: [id number] ?Inactive electrodes: ?1-5, 22-21?(non-auditory percept; pressure) ? Surgery Date: 03/01/2018 Initial Activation Date: 03/30/2018?? Surgeon: Hope Velasco M.D. ? Accessories:?? Remote Control Mini Microphone 2+ Phone Clip Aqua+ Kit? HISTORY: Ms. Atwood was seen for troubleshooting and annual evaluation of the device. The patient reported: - Processor was making a static noise and cutting out when she turned her head. She ordered a replacement coil/cable but was unable to remove the magnet from her malfunctioning cable. She brought the new cable to change today. - Changes microphone covers every 3 months - Has been generally hearing well but does rely on visual cues - Contralateral hearing aid is managed at an office near her house (device is 7 years old) - Has not taken wireless accessories out of the box - No pain or problems at the magnet site. PROMIS Global Health Scale 07/04/2020 02/20/2017 Physical Health Percentile 53 53 Mental Health Percentile 43 5 AIDED AUDIOMETRIC TESTING: Audiologic testing was completed in the sound field with the speech processor(s) at user settings (Program: 1; Volume: 6; Sensitivity: 12.) after programming. See the [employer] Audiogram for obtained thresholds. Speech perception testing was completed at 60 production artist using recorded stimuli in the sound field at 0 degrees azimuth. NOTE: The contralateral ear was plugged and muffed or masked during testing. The following testing and results were obtained: Lacmiijbv-Zkldzvz-Vcrfkrznu Words (CNC) Test Condition List # Phonemes Words Clinically significant change compared to previous visit? Clinically significant change compared to BEST? Clinically significant change compared to Evaluation (04/08/2017)? Left Ear 1 (words 1-25) 71% 48% yes, improved (28% on 04/06/2019) no (32% on 10/13/2018/) no (24%) Bimodal 2 (words 1-25) 84% 64% no (64% on 04/06/2019) no (72% on 04/06/2019) no (68%) AZ BIO (quiet) Test Condition List # Score Clinically significant change compared to previous visit? Clinically significant change compared to BEST? Clinically significant change compared to Evaluation (04/08/2017)? Left Ear 1 74% yes, improved (41% on 04/06/2019) yes, improved (40% on 10/13/18) yes, improved (21%) Bimodal DNT DNT 93% on 04/06/2019 93% on 04/06/2019 91% AZ BIO (+5 SNR) Test Condition List # Score Clinically significant change compared to previous visit? Clinically significant change compared to BEST? Clinically significant change compared to Evaluation (04/08/2017)? Left Ear 2 0% no (0% on 04/06/2019) no (0% on 04/06/2019) DNT Bimodal 3 42% no (34% on 04/06/2019) no (53% on 05/05/18) no (31%) Summary: Aided detection was obtained in the expected range from 250-6000 Hz. Aided speech perception scores with the CI-only are improved compared to last and best testing with speech in quiet. Bimodal scores are stable. COCHLEAR IMPLANT PROGRAMMING/TROUBLESHOOTING: Troubleshooting: Removed magnet from old coil/cable and replaced in new one. The static sound went away but she was unsure if the processor was still cutting out. If processor cuts out at home, recommend requesting a replacement processor. Batteries are all losing charge quickly. Placed RMA for battery in portal to arrive at her house. Dataloggin.2 hours LEFT Programming: Headset pressure, magnet strength, and incision site were checked with no problems noted. Electrode impedances, used to monitor internal device function, were measured across the electrode array. Impedances were WNL across all active electrodes. Review of impedances obtained today with comparison to previous 4 visits and 60-day postactivation baseline did not identify any remarkable changes or atypical measurements. Programming consisted of setting Comfort (C) levels at loud, but comfortable using a loudness scale. Several active electrodes were measured and the rest were interpolated. The function/use of the programs created were discussed and are listed below: Left Ear Program/Map # Program Feature 1 18 SCAN (ADRO + ASC), SNR-NR,WNR Active controls (more content not included)...[facility] Evaluation noteNo Assessments Information [facility] note[facility] InformationNort Cool[facility] Other Evaluation noteNo assessment information available [facility] Work Phone: History and physical note Author Kalyan Guzman [facility] June 01, 2023 8:14am Note Date/Time June 01, 2023 8: 14am [facility] [address] [place] [address] Gastroenterology H&P Signed Patient: Renetta Atwood MR#: [id number] : 1955 Acct:[id number] Age/Sex: 67 / F Adm Date: 3 Loc: Room: Type: [facility] Attending Dr: Kalyan Guzman MD Copies to: DO Kalyan Donahue MD~ Date of Service: 06/01/2023 HISTORY & PHYSICAL: Patient's history with special attention to the cardiovascular, pulmonary systems and the current problem was reviewed with the patient immediately prior to the procedure. Present medications and doses reviewed in the EMR. Allergies and pertinent laboratory tests were also reviewedat this time in the EMR. The physical examination, as below, was then performed. Indication, assessment and HPI: 67-year-old female presents for screening colonoscopy Family history of GI malignancy? Yes, colorectal cancer in a single grandparentdiagnosed at older age PHYSICAL EXAMINATION Mouth and Pharynx : Moist mucus membranes, normal dentition Cardiac: Regular rate, regular rhythm Pulmonary: Clear to auscultation bilaterally, no wheezing Neurological: Alert and oriented x3, no focal deficits noted Abdomen: Abdomen soft, non-tender REVIEW OF SYSTEMS Constitutional: Denies malaise, fevers Cardiovascular: Denies chest pain, palpitations Respiratory: Denies shortness of breath, wheezing Gastrointestinal: Per HPI Genitourinary: Denies dysuria, polyuria Musculoskeletal: Denies joint swelling, joint stiffness Neurological: Denies numbness, tingling Integumentary: Denies rashes, skin lesions Endocrine: Denies fatigue, weight loss Written informed consent obtained from the patient. Risks (including but not limited to perforation, infection, bloating, bleeding, need for emergent surgeryand loss of life), benefits and alternatives explained and questions answered. The patient verbalized understanding. Based on history patient is an appropriate candidate for the procedure. Kalyan Guzman MD Documented By: Kalyan Guzman MD 06/01/23 0813 Signed By: <Electronically signed by Kalyan Guzman MD> 06/01/23 0814 [facility] Work Phone: Histdfg general Narrative - Reported* Type Description Date Medical History Dysphagia, unspecified type Medical History Seasonal allergic rhinitis due t o pollen Medical History Other specified hypothyroidism Medical History Autoimmune thyroiditis Medical History Thrombocytopenia Medical History Sensorineural hearing loss (SNHL ) of both ears Surgical History LUMBAR LAMINECTOMY 1988 Surgical History VAGINAL TAPING PROCEDURE 2006 Surgical History BLADDER SUSPENSION 2013 Surgical History RIGHT LOWER EXTR VEIN STRIPPING 2013 Surgical History BUNIONECTOMY LEFT FOOT Surgical History BREAST REDUCTION SURGERY 2016 Surgical History COLONOSCOPY 2016 Surgical History EGD Hospitalization History SEE SURGICAL [employer] Other [facility] general Narrative - Reported* Type Description Date Surgical History LUMBAR LAMINECTOMY 1988 Surgical History VAGINAL TAPING PROCEDURE 2006 Surgical History BLADDER SUSPENSION 2013 Surgical History RIGHT LOWER EXTR VEIN STRIPPING 2013 Surgical History BUNIONECTOMY LEFT FOOT Surgical History BREAST REDUCTION SURGERY 2016 Surgical History COLONOSCOPY 2016 Surgical History EGD Hospitalization History SEE SURGICAL [employer] [facility] Other Hisqihs general Narrative - Reported* Type Description Date Medical History Dysphagia, unspecified type Medical History Seasonal allergic rhinitis due t o pollen Medical History Other specified hypothyroidism Medical History Autoimmune thyroiditis Medical History Thrombocytopenia Medical History Sensorineural hearing loss (SNHL ) of both ears Medical History Menopausal and femal e climacteric states (resolved 07/22/2021) Surgical History LUMBAR LAMINECTOMY 1988 Surgical History VAGINAL TAPING PROCEDURE 2006 Surgical History BLADDER SUSPENSION 2013 Surgical History RIGHT LOWER EXTR VEIN STRIPPING 2013 Surgical History BUNIONECTOMY LEFT FOOT Surgical History BREAST REDUCTION SURGERY 2016 Surgical History COLONOSCOPY 2016 Surgical History EGD Hospitalization History SEE SURGICAL [employer] Other history general Narrative - Reported* Type Description Date Medical History Dysphagia, unspecified type Medical History Seasonal allergic rhinitis due t o pollen Medical History Other specified hypothyroidism Medical History Autoimmune thyroiditis Medical History Thrombocytopenia Medical History Sensorineural hearing loss (SNHL ) of both ears Medical History Menopausal and femal e climacteric states (resolved 07/22/2021) Surgical History LUMBAR LAMINECTOMY 1988 Surgical History VAGINAL TAPING PROCEDURE 2006 Surgical History BLADDER SUSPENSION 2013 Surgical History RIGHT LOWER EXTR VEIN STRIPPING 2013 Surgical History BUNIONECTOMY LEFT FOOT Surgical History BREAST REDUCTION SURGERY 2016 Surgical History COLONOSCOPY 2016 Surgical History EGD Surgical History Colonoscopy w/ polyp ectomy (incompletely excised: [facility], CT abd/pelvis) 05/2023 Hospitalization History SEE SURGICAL [facility] Other History general Narrative - Reported* Type Description Date Medical History Dysphagia, unspecified type Medical History Seasonal allergic rhinitis due t o pollen Medical History Other specified hypothyroidism Medical History Autoimmune thyroiditis Medical History Thrombocytopenia Medical History Sensorineural hearing loss (SNHL ) of both ears Medical History Menopausal and femal e climacteric states (resolved 07/22/2021) Medical History [facility] Surgical History LUMBAR LAMINECTOMY 1988 Surgical History VAGINAL TAPING PROCEDURE 2006 Surgical History BLADDER SUSPENSION 2013 Surgical History RIGHT LOWER EXTR VEIN STRIPPING 2012 Surgical History BUNIONECTOMY LEFT FOOT Surgical History BREAST REDUCTION SURGERY 2016 Surgical History COLONOSCOPY 2016 Surgical History EGD Surgical History Colonoscopy w/ polyp ectomy (incompletely excised: [facility], CT abd/pelvis) 05/2023 Surgical History Colonoscopy w polypectomy, (rep eat 1 year) 07/2023 Hospitalization History SEE SURGICAL [facility] Other Hospital Discharge instructions Additional Instructions DISCHARGE INSTRUCTIONS FOR COLONOSCOPY WHAT TO EXPECT: - You may feel full, gassy or cramping after your procedure. In some cases, this may be from a few hours to a day. Walking may help relieve the discomfort. - If you have polyp(s) removed you may note some minor bloody discharge after your first bowel movements. - You should begin to recover from anesthesia within 1 hour of the procedure, however may feel groggy for the next 24 hours. DO's AND DON'Ts: - Call your doctor right away if you have a hard abdomen, severe pain, are passing lots of bright red blood or clots. - Call your doctor if you develop any rashes, hives or difficulty breathing. - Let your doctor know if you have not had a bowel movement by 3 days after your procedure. - If you take 81 mg aspirin for your heart it is safe to resume this medication. - If you take other blood thinner medications your doctor will instruct you when these can safely be resumed. - Do NOT drive for 24 hours. - Do NOT operate machinery such as power tools, lawn mowers, snow blowers, sewing machines, etc. for 24 hours. - Avoid alcoholic beverages and drugs for allergies, nerves, or sleep. - Do NOT stay alone. Do NOT leave your child unattended. - Do NOT make important personal or business decisions or sign any legal documents. - Eat solid foods and drink liquids in smaller amounts than usual until normal appetite returns. If you should experience an upset stomach, liquids high in sugar content (soda, Neptali-Aid, non-acid juices) are recommended. - You can resume normal activities tomorrow. FOLLOW UP & RECOMMENDATIONS: -Dr. Guzman's office will arrange a follow-up appointment with general surgery for you -Notify the doctor if you have any problems. -Follow up with PCP. -Office number [phone].[facility] Work Phone: Advance Directives Advance Directive Response Recorded Date/ Time Advance Directives No February 06, 2 021 10:29am Chief Complaint and Reason for Visit Chief Complaint Dysphagia Chief Complaint Screening Chief Complaint Screening K63.86 Summary Purpose Family History Relationship Condition Age at Onset Recorded Date/T parag grandparent Malignant neoplasm of colon Unknown Not Specified Malignant neoplasm of breast Unknown Additional Source Comments INFORMATION SOURCE (unrecogn ized section and content) DATE CREATED AUTHOR 06/17/2021 [facility] DATE CREATED AUTHOR AUTHOR'S ORGANIZ ATION 01/07/2022 [facility] DATE CREATED AUTHOR AUTHOR'S ORGANIZ ATION 01/24/2023 [facility] DATE CREATED AUTHOR AUTHOR'S ORGANIZ ATION 07/05/2023 [facility] DATE CREATED AUTHOR AUTHOR'S ORGANIZ ATION 10/24/2023 [facility] EPIC REASON FOR VISIT (unrecogniz ed section and content) Allergy ShotGASTRO -3 ATTEMP TS1 month Follow upNo InformationAdipexNo InformationORDERS FOLLOWING COLONOSCOPYNo InformationNo Informationmamm results Care Teams (unrecognized sec tion and content) Team Status: Active Member Role Status Dates Vince Villegas DO Primary Care Provider Active Team Status: Inactive Member Role Status Dates Vince Villegas DO Primary Care Provider Active Kalyan Guzman MD Attending Provider Active FOR RECORDS PERTAINING TO PATIENTS WHO ARE OR HAVE BEEN ENROLLED IN A CHEMICAL DEPENDENCY/SUBSTANCEABUSE PROGRAM, SOME INFORMATION MAY BE OMITTED. This clinical summary was aggregated from multiple sources. Caution should be exercised in using it in the provision of clinical care. This summary normalizes information from multiple sources, and as a consequence, information in this document may materially change the coding, format and clinical context of patient data. In addition, data may be omitted in some cases. CLINICAL DECISIONS SHOULD BE BASED ON THE PRIMARY CLINICAL RECORDS. [facility] [employer] [facility]. provides no warranty or guarantee of the accuracy or completeness of information in this document.
== END 2024-04-13 09:54 | disposition home or self-care (01) ==
LOC: SLEEP 09:53
PROVIDERS: PCP Internal Medicine; Visit Provider Internal Medicine
DX: G47.33 Obstructive sleep apnea (adult) (pediatric) (principal)
CPT/HCPCS: 95806

== ENCOUNTER 2024-04-29 11:13 | Emergency (ER) | payer MEDICARE, OTHER, SELFPAY ==
[2024-04-29 11:18] VITALS: BP 132/90; PULSE 87; TEMP 36.5; O2SAT 98; BMI 27.0
[2024-04-29 11:19] VITALS: BP 132/90; O2SAT 96
[2024-04-29] MEDS: 0.9 % SODIUM CHLORIDE 1,000 ML 1000 ML IV (11:37)
[2024-04-29 11:39] LABS: Basophils Absolute Auto 0.1 10^3/uL (0.0-0.1); Basophils Percent Auto 0.5 % (0.2-2.0); Eosinophils Absolute Auto 0.1 10^3/uL (0.0-0.7); Eosinophils Percent Auto 0.9 % (0.9-7.0); Hematocrit 45.7 % (36.0-48.0); Hemoglobin 14.5 g/dL (12.0-16.0); Immature Granulocytes Abs Auto 0.04 10^3/uL (0.00-0.03); Immature Granulocytes Pct Auto 0.3 % (0.0-0.5); Lymphocytes Absolute Auto 1.8 10^3/uL (1.2-3.8); Lymphocytes Percent Auto 15.1 % (20.5-60.0); Mean Corpuscular HGB Conc 31.7 g/dL (29.9-35.2); Mean Corpuscular Hemoglobin 29.4 pg (26.7-34.0); Mean Corpuscular Volume 92.5 fL (81.0-99.0); Mean Platelet Volume 9.2 fL (9.5-13.5); Monocytes Absolute Auto 1.1 10^3/uL (0.3-0.8); Monocytes Percent Auto 9.2 % (1.7-12.0); Neutrophils Absolute Auto 8.7 10^3/uL (1.4-6.5); Platelet Count 174 10^3/uL (150-450); Red Blood Count 4.94 10^6/uL (4.20-5.40); Red Cell Distribution Width 13.4 % (11.0-15.0); White Blood Count 11.8 10^3/uL (4.0-11.0)
--- NOTE | 2024-04-29 11:41 | CT_ITS ---
[address] [address] Patient Name: RENETTA ATWOOD MRN: [id number] date: 1955 Sex: F Assigned Patient Location: ER Current Patient Location: ER Accession/Order Number: [id number] Exam Date: 04/29/2024 12:02 Report Date: 04/29/2024 12:43 At the request of: IVETTE WATSON Procedure: CT abdomen pelvis wo con EXAMINATION: CT abdomen pelvis wo con HISTORY: LLQ pain hx of diverticulitis COMPARISON: No relevant comparison available. TECHNIQUE: Axial, Coronal, and Sagittal images were created without IV contrast. Dose reduction techniques were achieved by using automated exposure control and/or adjustment of mA and/or kV according to patient size and/or use of iterative reconstruction technique. FINDINGS: LUNG BASES: No visible pulmonary or pleural disease. LIVER: No enlargement, atrophy, abnormal density, or significant focal lesion. BILIARY: No dilatation or calcification. PANCREAS: No lesion, fluid collection, ductal dilatation, or atrophy. SPLEEN: No enlargement or focal lesion. ADRENALS: No mass or enlargement. KIDNEYS: Bilateral parapelvic cysts, left greater the right. No obstructive uropathy. BOWEL/MESENTERY: Colonic diverticulosis. Wall thickening of the splenic flexure and proximal descending colon with surrounding mesenteric stranding and a tiny amount of fluid in the left paracolic gutter. Overall nonobstructive bowel gas pattern. Normal appendix AORTA/VASCULAR: No aortic aneurysm. Moderate calcific atherosclerosis RETROPERITONEUM: No mass or adenopathy. LYMPH NODES: No adenopathy. URINARY BLADDER: No visible focal wall thickening, lesion, or calculus. PELVIC ORGANS: Hysterectomy ABDOMINAL WALL: No mass or hernia. BONES: No bony lesion or fracture. OTHER: Negative. CT/CT abdomen pelvis wo con IMPRESSION: Inflammatory changes of the splenic flexure and proximal descending colon. The differential diagnosis would include colitis or diverticulitis. No focal abscess Electronically authenticated by: DRAKE OLIVERA Date: 04/29/2024 12:43
[2024-04-29 11:58] LABS: Alanine Aminotransferase 12 U/L (14-59); Albumin Globulin Ratio 0.9; Albumin Level 3.5 g/dL (3.4-5.0); Alkaline Phosphatase 102 U/L (46-116); Aspartate Amino Transferase 18 U/L (15-37); BUN Creatinine Ratio 17.3; Bilirubin Total 1.2 mg/dL (0.2-1.0); Calcium 9.5 mg/dL (8.5-10.1); Carbon Dioxide 28.6 mmol/L (21.0-32.0); Estimated GFR (African America >60 (>=60); Estimated GFR (Non-African Ame >60 (>=60); Globulin 3.7 g/dL; Glucose 102 mg/dL (74-106); Total Protein 7.2 g/dL (6.4-8.2)
--- NOTE | 2024-04-29 11:59 | ED.ABDPAIN1 ---
HPI - Abdominal Pain General Chief Complaint: Abdominal Pain Stated Complaint: LOWER ABDOMINAL PAIN/ BLOOD IN URINE Time Seen by Provider: 04/29/24 11:23 Source: patient Mode of arrival: walk-in Limitations: no limitations History of Present Illness HPI narrative: The patient presenting to us with nausea vomiting and diarrhea that started few days ago, although she mentioned that the nausea and vomiting resolved and she did tolerate her cereal today with no difficulty, but she did notice over the last 2 days some blood in his stool and sometimes some blood clot with stool, in addition to the fact that she has been having some left lower quadrant abdominal cramping. The patient denies any dizziness shortness of breath She mentioned that she have a history of colonoscopy at least in the last 8 months she had 3 colonoscopies due to the fact that she had a large polyp that was removed. The patient right now denies any nausea vomiting Related Data Home Medications ?Medication ?Instructions ?Recorded ?Confirmed levothyroxine 50 mcg tablet 50 mcg PO DAILY 04/29/24 04/29/24 Previous Rx's ?Medication ?Instructions ?Recorded amoxicillin 875 mg-potassium 1 tab PO Q12H #20 tabs 04/29/24 clavulanate 125 mg tablet dicyclomine 20 mg tablet 20 mg PO QID PRN abdominal pain 04/29/24 #20 tabs Allergies Allergy/AdvReac Type Severity Reaction Status Date / Time No Known Drug Allergies Allergy Verified 04/29/24 11:18 Review of Systems ROS Status of ROS 10 or more systems reviewed and unremarkable except as noted in history and below Exam Narrative Exam Narrative: Nurses notes and vital signs reviewed and patient is not hypoxic. General: Well-appearing and in no apparent distress. Skin: Warm, dry, no pallor noted. No rash. Head: Normocephalic, atraumatic. Neck: Supple, non-tender. Eye: Pupils are equal, round and EOMI. No scleral icterus. Ears, Nose, Mouth, and Throat: TM are clear, no nasal mucosal hypertrophy. Oral mucosa is moist, no posterior oropharynx erythema, uvula is mid-line Cardiovascular: Regular Rate and Rhythm without murmur, gallop or rub. Respiratory: No accessory muscle use or respiratory distress. Lungs are clear to auscultation, no wheezing, rales or rhonchi Chest Wall: no tenderness Back: No midline thoracic or lumbar vertebral tenderness. No CVA tenderness Musculoskeletal: normal ROM, no calf or popliteal tenderness, no lower extremity edema/swelling GI: Abdomen is soft, left lower quadrant abdominal pain Neurological: A&O x4. No cranial nerve dysfunction observed. No truncal ataxia. Moves all extremities. Sensation intact. Psychiatric: Cooperative and interactive. Normal mood and affect. Rectal exam showed that the patient have a small external hemorrhoid at 6:00 that is not bleeding or inflamed Constitutional Vital Signs, click to edit/add: Last Vital Signs Temp 97.7 F 04/29/24 11:18 Pulse 87 04/29/24 11:18 Resp 20 04/29/24 11:18 BP 132/90 04/29/24 11:18 Pulse Ox 98 04/29/24 11:18 Course Vital Signs Vital signs: Vital Signs Temperature 97.7 F 04/29/24 11:18 Pulse Rate 87 04/29/24 11:18 Respiratory Rate 20 04/29/24 11:18 Blood Pressure 132/90 04/29/24 11:18 Pulse Oximetry 98 04/29/24 11:18 Temperature 97.7 F 04/29/24 11:18 Pulse Rate 87 04/29/24 11:18 Respiratory Rate 20 04/29/24 11:18 Blood Pressure 132/90 04/29/24 11:18 Pulse Oximetry 98 04/29/24 11:18 MDM - Abdominal Pain MDM Narrative Medical decision making narrative: CMP showed sodium of 177 -----will be repeated ----repeated BMP was normal CBC showed no acute significant pathology The patient was provided with IV fluid CT of the abdomen pelvis shows diverticulitis with no complication Patient was discharged home with Augmentin as well as liquid soft diet for the next 3 to 5 days Patient instructed about coming back in case of any new symptoms including abdominal pain fever chills or any other concerns The patient also had hemoglobin within normal and she will monitor her symptoms at home in case of any increase in bleeding she is to come back to the ER The patient is to follow up with primary care physician in next 2-3 days or to return to the emergency department should any of the signs or symptoms worsen or new symptoms develop. The patient agrees with the following Diagnosis and Treatment plan and the patient will be discharged home. Lab Data Labs: Lab Results 04/29/24 04/29/24 Range/Units 11:25 12:14 WBC 11.8 H (4.0-11.0) 10^3/uL RBC 4.94 (4.20-5.40) 10^6/uL Hgb 14.5 (12.0-16.0) g/dL Hct 45.7 (36.0-48.0) % MCV 92.5 (81.0-99.0) fL MCH 29.4 (26.7-34.0) pg MCHC 31.7 (29.9-35.2) g/dL RDW 13.4 (11.0-15.0) % Plt Count 174 (150-450) 10^3/uL MPV 9.2 L (9.5-13.5) fL Neut % (Auto) 74.0 (43.0-75.0) % Lymph % (Auto) 15.1 L (20.5-60.0) % [place] % (Auto) 9.2 (1.7-12.0) % Eos % (Auto) 0.9 (0.9-7.0) % Baso % (Auto) 0.5 (0.2-2.0) % Neut # (Auto) 8.7 H (1.4-6.5) 10^3/uL Lymph # (Auto) 1.8 (1.2-3.8) 10^3/uL [place] # (Auto) 1.1 H (0.3-0.8) 10^3/uL Eos # (Auto) 0.1 (0.0-0.7) 10^3/uL Baso # (Auto) 0.1 (0.0-0.1) 10^3/uL Abs Immat Gran (auto) 0.04 H (0.00-0.03) 10^3/uL Imm/Tot Granulo (auto) 0.3 (0.0-0.5) % Sodium 144 141 (136-145) mmol/L Potassium 4.2 3.8 (3.5-5.1) mmol/L Chloride 107 106 (98-107) mmol/L Carbon Dioxide 28.6 29.5 (21.0-32.0) mmol/L Anion Gap 12.6 9.3 BUN 14.0 13.0 (7.0-18.0) mg/dL Creatinine 0.81 0.79 (0.55-1.02) mg/dL Est GFR ( Amer) >60 >60 (>=60) Est GFR (Non-Af Amer) >60 >60 (>=60) BUN/Creatinine Ratio 17.3 16.5 Glucose 102 93 (74-106) mg/dL Calcium 9.5 8.6 (8.5-10.1) mg/dL Total Bilirubin 1.2 H (0.2-1.0) mg/dL AST 18 (15-37) U/L ALT 12 L (14-59) U/L Alkaline Phosphatase 102 (46-116) U/L Total Protein 7.2 (6.4-8.2) g/dL Albumin 3.5 (3.4-5.0) g/dL Globulin 3.7 g/dL Albumin/Globulin Ratio 0.9 Discharge Plan Discharge Stand Alone Forms: Portal Instructions Chief Complaint: Abdominal Pain Clinical Impression: Diverticulitis Patient Disposition: Home, Self-Care Time of Disposition Decision: 13:16 Condition: Good Prescriptions / Home Meds: New amoxicillin-pot clavulanate 875-125 mg tablet 1 tab PO Q12H Qty: 20 0RF dicyclomine 20 mg tablet 20 mg PO QID PRN (Reason: abdominal pain) Qty: 20 0RF No Action levothyroxine 50 mcg tablet 50 mcg PO DAILY Print Language: Nepali Instructions: Diverticulitis (DC), Soft Diet (ED), Full Liquid Diet (DC) Referrals: Vince Villegas DO [Primary Care Provider] - 1 week
[2024-04-29 12:40] LABS: Anion Gap 9.3; BUN Creatinine Ratio 16.5; Calcium 8.6 mg/dL (8.5-10.1); Carbon Dioxide 29.5 mmol/L (21.0-32.0); Chloride 106 mmol/L (98-107); Estimated GFR (African America >60 (>=60); Estimated GFR (Non-African Ame >60 (>=60); Glucose 93 mg/dL (74-106); Potassium 3.8 mmol/L (3.5-5.1); Sodium 141 mmol/L (136-145)
[2024-04-29 13:12] LABS: Anion Gap 12.6; Chloride 107 mmol/L (98-107); Potassium 4.2 mmol/L (3.5-5.1); Sodium 144 mmol/L (136-145)
[2024-04-29 13:22] VITALS: BP 111/73; O2SAT 96
== END 2024-04-29 13:25 | disposition home or self-care (01) ==
PROVIDERS: Emergency Provider Emergency Medicine; PCP Internal Medicine
DX: K57.32 Diverticulitis of large intestine without perforation or abscess without bleeding (principal)
CPT/HCPCS: 36415; 74176; 80048; 80053; 85025; 99284

== ENCOUNTER 2024-06-23 09:56 | Outpatient (OUT) | payer MEDICARE, OTHER, SELFPAY ==
--- OUTSIDE RECORDS SUMMARY | 2024-06-23 10:10 | XMS_ITS | CCD ---
Author Organization [facility] Care Team Providers Care Automatic Equipment Technician Name Role Phone Kalyan Guzman Attending Provider [phone] Vince Villegas Primary Care Provider SHERYL, DR [...] Unavailable SHERYL, DR JOEL Primary Care Unavailable JAROD, DR DRAKE Nguyen Consulting Unavailable Vince Villegas Unavailable Kalyan Guzman Unavailable DO Vince Villegas Primary Care Provider [phone] MD Kalyan Guzman Attending Provider [phone] Kalyan Guzman Attending Unavailable Kalyan Guzman Admitting [...] (8 sources) Adhesive agent Drug allergy Unknown Wetpaint Other (8 sources) Adhesive Tape Drug allergy Unknown [employer]paint Other Medications Current Medications Medication Drug Class(es) [...] pelvis w conon CT abdomen pelvis [place] [facility] [place] [address] CT Scan Report Signed Patient: Renetta Atwood MR#: [id number] : 1955 Acct:[id number] Age/Sex: 67 / F ADM Date: 06/24/23 Loc: CT Room: Type: [facility] Attending Dr: Kalyan Guzman MD Copies to: [...] Keenan Jr., D.O.06/24/2023 2:20 PM Dictation Location: [place] [address] Transcribed By: [facility] 06/24/23 1420 Dictated By: Michael Keenan Jr, DO 06/24/23 1418 Signed By: 06/24/23 1420 [facility] Alanine aminotransferase [En zymatic activity/volume] in Serum or PlasmaOrdered By: Kalyan Guzman on 06-01-2023 ALT [Catalytic activity/Vol] 9 U/L 7-52 [facility] Albumin [Mass/volume] in Ser um or Plasma by Bromocresol green (BCG) dye binding methoOrdered By: Kalyan Guzman on 06-01-2023 Albumin BCG dye [Mass/Vol] 4.4 g/dL 3.5-5.7 [facility] Alkaline phosphatase [Enzyma tic activity/volume] in Serum or PlasmaOrdered By: Kalyan Guzmna on 06-01-2023 ALP [Catalytic activity/Vol] 72 U/L 34-104 [facility] Aspartate aminotransferase [ Enzymatic activity/volume] in Serum or PlasmaOrdered By: Kalyan Guzman on 06-01-2023 AST [Catalytic activity/Vol] 22 U/L 13-39 [facility] Band form neutrophils/100 WB C Manual cnt (Bld)Ordered By: Kalyan Guzman on 06-01-2023 Band form neutrophils/100 WBC (Bld) 2 % 0-5 [facility] Basophils Auto (Bld) [#/Vol] Ordered By: Kalyan Guzman on 06-01-2023 Basophils (Bld) [#/Vol] N/A F [facility] Basophils/100 WBC Auto (Bld) Ordered By: Kalyan Guzman on 06-01-2023 Basophils/100 WBC (Bld) N/A [facility] Basophils/100 WBC Manual cnt (Bld)Ordered By: Kalyan Guzman on 06-01-2023 Basophils/100 WBC (Bld) 1 % 0-[address] [facility] Bilirubin.total [Mass/volume ] in Serum or PlasmaOrdered By: Kalyan Guzman on 06-01-2023 Bilirubin [Mass/Vol] 0.9 mg/dL 0.3-1.0 [facility] Calcium [Mass/volume] in Ser um or PlasmaOrdered By: Kalyan Guzman on 06-01-2023 Calcium [Mass/Vol] 9.4 mg/dL 8.6-10.3 [facility] Carbon dioxide, total [Moles /volume] in Serum or PlasmaOrdered By: Kalyan Guzman on 08-14-2023 CO2 [Moles/Vol] 25.2 mmol/L 21.0-31.0 [facility] Chloride [Moles/volume] in S javier or PlasmaOrdered By: Kalyan Guzman on 06-01-2023 Chloride [Moles/Vol] 108 mmol/L 98-107 [facility] Comprehensive Metabolic Pane luis enrique 06-01-2023 Albumin [Mass/Vol] 4.4 g/dL Normal 3.5-5.7 [facility] Comment on above: Performed By: #### D IFF CBC, CEA, CMP #### [facility] [address] Albumin/Globulin [Mass ratio] 1.6 {ratio} Normal [facility] Comment on above: Performed By: #### D IFF CBC, CEA, CMP #### [facility] [address] ALP [Catalytic activity/Vol] 72 U/L Normal 34-104 [facility] Comment on above: Performed By: #### D IFF CBC, CEA, CMP #### [facility] [address] ALT [Catalytic activity/Vol] 9 U/L Normal 7-52 [facility] Comment on above: Performed By: #### D IFF CBC, CEA, CMP #### [facility] [address] Anion gap [Moles/Vol] 10.9 mmol/L Normal 6.0-15.0 [facility] Comment on above: Performed By: #### D IFF CBC, CEA, CMP #### [facility] [address] [place] [address] [place] AST [Catalytic activity/Vol] 22 U/L Normal 13-39 [facility] Comment on above: Performed By: #### D IFF CBC, CEA, CMP #### [facility] [address] [place] [address] [place] Bilirubin [Mass/Vol] 0.9 mg/dL Normal 0.3-1.0 [facility] Comment on above: Performed By: #### D IFF CBC, CEA, CMP #### [facility] [address] Calcium [Mass/Vol] 9.4 mg/dL Normal 8.6-10.3 [facility] Comment on above: Performed By: #### D IFF CBC, CEA, CMP #### [facility] [address] Chloride [Moles/Vol] 108 mmol/L High 98-107 [facility] Comment on above: Performed By: #### D IFF CBC, CEA, CMP #### [facility] [address] CO2 [Moles/Vol] 25.2 mmol/L Normal 21.0-31.0 [facility] Comment on above: Performed By: #### D IFF CBC, CEA, CMP #### [facility] [address] Creatinine [Mass/Vol] 0.72 mg/dL Normal 0.60-1.20 [facility] Comment on above: Performed By: #### D IFF CBC, CEA, CMP #### [facility] [address] Creatinine Clr Calc Pharmacy 68.33 [facility] Comment on above: Result Comment: PERF ORMED BY: [place] [address] PATHOLOGIST COAL DIGGER ESTEE KAPOOR M.D. Performed By: #### D IFF CBC, CEA, CMP #### [facility] [address] GFR/1.73 sq M.predicted MDRD (S/P/Bld) [Vol rate/Area] mL/min/{1.73_m2} [facility] Comment on above: Performed By: #### D IFF CBC, CEA, CMP #### [facility] [address] Globulin (S) [Mass/Vol] 2.7 g/dL Normal [facility] Comment on above: Performed By: #### D IFF CBC, CEA, CMP #### [facility] [address] [place] [address] [place] Glucose [Mass/Vol] 89 mg/dL Normal 70-100 [facility] Comment on above: Result Comment: [facility] Glucose Reference Range is dependent on time and content of last meal. Glucose of more than 200 mg/dL in a nonstressed, ambulatory subject supports the diagnosis of Diabetes Mellitus. ADA recommended reference range Performed By: #### D IFF CBC, CEA, CMP #### [facility] [address] Potassium [Moles/Vol] 4.1 mmol/L Normal 3.5-5.1 [facility] Comment on above: Performed By: #### D IFF CBC, CEA, CMP #### [address] Protein [Mass/Vol] 7.1 g/dL Normal 6.4-8.9 [facility] Comment on above: Performed By: #### D IFF CBC, CEA, CMP #### [place] [address] [place] Sodium [Moles/Vol] 140 mmol/L Normal 136-145 [facility] Comment on above: Performed By: #### D IFF CBC, CEA, CMP #### [place] [address] [place] Urea nitrogen [Mass/Vol] 14 mg/dL Normal 7-25 [facility] Comment on above: Performed By: #### D IFF CBC, CEA, CMP #### [facility] [address] [place] [address] [place] Creatinine [Mass/volume] in Serum or PlasmaOrdered By: Kalyan Guzman on 06-01-2023 Creatinine [Mass/Vol] 0.72 mg/dL 0.60-1.20 [facility] Diff and CBCon 06-01-2023 Band form neutrophils/100 WBC (Bld) 2 % Normal 0-5 [facility] Comment on above: Performed By: #### D IFF CBC, CEA, CMP #### [facility] [address] [place] [address] Basophils/100 WBC (Bld) 1 % Normal 0-[address] [facility] Comment on above: Performed By: #### D IFF CBC, CEA, CMP #### [address] Eosinophils/100 WBC (Bld) 1 % Normal 1-3 [facility] Comment on above: Performed By: #### D IFF CBC, CEA, CMP #### [address] Erythrocyte distribution width (RBC) [Ratio] 13.8 % Normal 11.9-15.3 [facility] Comment on above: Performed By: #### D IFF CBC, CEA, CMP #### [address] Hematocrit (Bld) [Volume fraction] 42.6 % Normal 34.0-46.4 [facility] Comment on above: Performed By: #### D IFF CBC, CEA, CMP #### [address] Hemoglobin (Bld) [Mass/Vol] 13.9 g/dL Normal 11.8-15.4 [facility] Comment on above: Performed By: #### D IFF CBC, CEA, CMP #### [address] Lymphocytes/100 WBC (Bld) 22 % Normal 18-42 [facility] Comment on above: Performed By: #### D IFF CBC, CEA, CMP #### [address] MCH (RBC) [Entitic mass] 29.2 pg Normal 24.7-34.3 [facility] Comment on above: Performed By: #### D IFF CBC, CEA, CMP #### [address] MCV (RBC) [Entitic vol] 89.2 fL Normal 80-[address] [facility] Comment on above: Performed By: #### D IFF CBC, CEA, CMP #### [address] [place] [address] [place] Mean Corpuscular HGB Conc 32.8 g/dL Normal 32.0-35.0 [facility] Comment on above: Performed By: #### D IFF CBC, CEA, CMP #### [facility] [address] Monocytes/100 WBC (Bld) 20 % High 2-[address] [facility] Comment on above: Performed By: #### D IFF CBC, CEA, CMP #### [facility] [address] Platelet Estimate Normal Normal Normal [facility] Comment on above: Performed By: #### D IFF CBC, CEA, CMP #### [address] Platelet mean volume (Bld) [Entitic vol] 7.8 fL Normal 6.3-10.7 [facility] Comment on above: Performed By: #### D IFF CBC, CEA, CMP #### [address] Platelet Morphology Normal Normal Normal [facility] Comment on above: Result Comment: PERF ORMED BY: [place] [address] PATHOLOGIST COAL DIGGER ESTEE KAPOOR M.D. Performed By: #### D IFF CBC, CEA, CMP #### [place] [address] [place] Platelets (Bld) [#/Vol] 157 10*3/uL Normal 150-450 [facility] Comment on above: Performed By: #### D IFF CBC, CEA, CMP #### [place] [address] [place] RBC (Bld) [#/Vol] 4.77 10*6/uL Normal 3.60-5.00 [facility] Comment on above: Performed By: #### D IFF CBC, CEA, CMP #### [address] RBC morphology finding Nom (Bld) Normal Normal Normal [facility] Comment on above: Performed By: #### D IFF CBC, CEA, CMP #### [facility] [address] [place] [address] [place] Segmented neutrophils/100 WBC (Bld) 54 % Normal 50-70 [facility] Comment on above: Performed By: #### D IFF CBC, CEA, CMP #### [facility] [address] [place] [address] [place] WBC (Bld) [#/Vol] 4.9 10*3/uL Normal 3.8-11.6 [facility] Comment on above: Performed By: #### D IFF CBC, CEA, CMP #### [facility] [address] [place] [address] [place] Eosinophils Auto (Bld) [#/Vo l]Ordered By: Kalyan Guzman on 06-01-2023 Eosinophils (Bld) [#/Vol] N/A [facility] Eosinophils/100 WBC Auto (Bl d)Ordered By: Kalyan Guzman on 06-01-2023 Eosinophils/100 WBC (Bld) N/A [facility] Eosinophils/100 WBC Manual c nt (Bld)Ordered By: Kalyan Guzman on 06-01-2023 Eosinophils/100 WBC (Bld) 1 % 1-3 [facility] Erythrocyte distribution wid th Auto (RBC) [Ratio]Ordered By: Kalyan Guzman on 06-01-2023 Erythrocyte distribution width (RBC) [Ratio] 13.8 % 11.9-15.3 [facility] Globulin Calc (S) [Mass/Vol] Ordered By: Kalyan Guzman on 06-01-2023 Globulin (S) [Mass/Vol] 2.7 g/dL F [facility] Glucose [Mass/volume] in Ser um or PlasmaOrdered By: Kalyan Guzman on 06-01-2023 Glucose [Mass/Vol] 89 mg/dL 70-100 [facility] Comment on above: ADA recommended refe rence rangeRandom Glucose Reference Range is dependent on time and content of last meal. Glucose of more than 200 mg/dL in a nonstressed, ambulatory subject supports the diagnosis of Diabetes Mellitus. Hematocrit Auto (Bld) [Volum e fraction]Ordered By: Kalyan Guzman on 06-01-2023 Hematocrit (Bld) [Volume fraction] 42.6 % 34.0-46.4 [facility] Hemoglobin [Mass/volume] in BloodOrdered By: Kalyan Guzman on 06-01-2023 Hemoglobin (Bld) [Mass/Vol] 13.9 g/dL 11.8-15.4 [facility] Luis Enrique 06-01-2023 L Specimen: [id number] Received: 06/01/23 Status: DERRELL Lester Num: [id number] Spec Type: Surgical Subm Dr: Kalyan Guzman MD Tissues: A Colon Biopsy (TRANSVERSE POLYP) B Colon Biopsy (DESCENDING POLYP) Procedures: JJ/Demetris, Ugo/Fiorella L4/2 Age/ Patient Sex Location Account Attending Physician Renetta Atwood 67/F [id number] Kalyan Guzman MD SPEC NUM: [id number] RECD: 06/01/23 STATUS: DERRELL BATISTA NUM: [id number] TONYA: 06/01/23 DR: Kalyan Guzman MD ENTERED: 06/01/[address] [facility] [address]: SPEC TYPE: Surgical DEPT: S ORDERED: [...] submitted in one cassette labeled B1. Specimen: [id number] Received: 06/01/23 Status: DERRELL Batista Num: [id number] Spec Type: Surgical Subm Dr: Kalyan Guzman MD Tissues: A Colon Biopsy (TRANSVERSE POLYP) B Colon Biopsy (DESCENDING POLYP) Procedures: HE/4, Gross/Micro L4/2 Patient: Renetta Atwood [id number] (Continued) Specimen: [id number] Received: 06/01/23 (Continued) Signed (signatur e on file) Mike Chen MD 06/03/23 0952 Specimen: [id number] Received: 06/01/23 Status: DERRELL Batista Num: [id number] Spec Type: Surgical Subm Dr: Kalyan Guzman MD Tissues: A Colon Biopsy (TRANSVERSE POLYP) B Colon Biopsy (DESCENDING POLYP) Procedures: JJ/Demetris, Gross/Micro L4/2 Patient: Renetta Atwood [id number] (Continued) Specimen: [id number] Received: 06/01/23 (Continued) Microscopic Description A. Two H E slides reviewed. The microscopic examination confirms the diagnosis. B. Two H E slides reviewed. The microscopic examination confirms the diagnosis. CPT Codes 72458h two Specimen: [id number] Received: 06/01/23 Status: DERRELL Batista Num: [id number] Spec Type: Surgical Subm Dr: Kalyan Guzman MD Tissues: A Colon Biopsy (TRANSVERSE POLYP) B Colon Biopsy (DESCENDING POLYP) Procedures: HE/Demetris, Gross/Micro L4/2 Patient: Renetta Atwood [id number] (Continued) Signed (signatur e on file) Mike Chen MD 06/03/23 0952 Normal [facility] Leukocytes [#/volume] correc rajesh for nucleated erythrocytes in Blood by Automated counOrdered By: Kalyan Guzman on 06-01-2023 WBC corrected for nucl RBC Auto (Bld) [#/Vol] 4.9 10*3/uL 3.8-11.6 [facility] Lymphocytes Auto (Bld) [#/Vo l]Ordered By: Kalyan Guzman on 06-01-2023 Lymphocytes (Bld) [#/Vol] N/A [facility] Lymphocytes/100 WBC Auto (Bl d)Ordered By: Kalyan Guzman on 06-01-2023 Lymphocytes/100 WBC (Bld) N/A [facility] Lymphocytes/100 WBC Manual c nt (Bld)Ordered By: Kalyan Guzman on 06-01-2023 Lymphocytes/100 WBC (Bld) 22 % 18-42 [facility] MCH Auto (RBC) [Entitic mass ]Ordered By: Kalyan Guzman on 06-01-2023 MCH (RBC) [Entitic mass] 29.2 pg 24.7-34.3 [facility] MCHC Auto (RBC) [Mass/Vol]Or dered By: Kalyan Guzman on 06-01-2023 MCHC (RBC) [Mass/Vol] 32.8 g/dL 32.0-35.0 [facility] MCV Auto (RBC) [Entitic vol] Ordered By: Kalyan Guzman on 06-01-2023 MCV (RBC) [Entitic vol] 89.2 fL 80-[address] [facility] Monocytes Auto (Bld) [#/Vol] Ordered By: Kalyan Guzman on 06-01-2023 Monocytes (Bld) [#/Vol] N/A [facility] Monocytes/100 WBC Auto (Bld) Ordered By: Kalyan Guzman on 06-01-2023 Monocytes/100 WBC (Bld) N/A [facility] Monocytes/100 WBC Manual cnt (Bld)Ordered By: Kalyan Guzman on 06-01-2023 Monocytes/100 WBC (Bld) 20 % 2-[address] [facility] Neutrophils Auto (Bld) [#/Vo l]Ordered By: Kalyan Guzman on 06-01-2023 Neutrophils (Bld) [#/Vol] N/A [facility] Neutrophils/100 WBC Auto (Bl d)Ordered By: Kalyan Guzman on 06-01-2023 Neutrophils/100 WBC (Bld) N/A [facility] No Panel InformationOrdered By: Kalyan Guzman on 06-01-2023 Estimated GFR (CKD-EPI) > 60.0 mL/Min [facility] Creatinine Clearance (Chem 68.33 [facility] Nucleated erythrocytes [Pres ence] in Blood by Automated countOrdered By: Kalyan Guzman on 06-01-2023 Nucleated RBC Auto Ql (Bld) N/A [facility] Platelet adequacy [Presence] in Blood by Light microscopyOrdered By: Kalyan Guzman on 06-01-2023 Platelets LM Ql (Bld) Normal Normal [facility] Platelet mean volume Auto (B ld) [Entitic vol]Ordered By: Kalyan Guzman on 06-01-2023 Platelet mean volume (Bld) [Entitic vol] 7.8 fL 6.3-10.7 [facility] Platelet morphology finding [Identifier] in BloodOrdered By: Kalyan Guzman on 06-01-2023 Platelet morphology finding Nom (Bld) Normal Normal [facility] Platelets Auto (Bld) [#/Vol] Ordered By: Kalyan Guzman on 06-01-2023 Platelets (Bld) [#/Vol] 157 10*3/uL 150-450 [facility] Potassium [Moles/volume] in Serum or PlasmaOrdered By: Kalyan Guzman on 06-01-2023 Potassium [Moles/Vol] 4.1 mmol/L 3.5-5.1 [facility] Protein [Mass/volume] in Ser um or PlasmaOrdered By: Kalyan Guzman on 06-01-2023 Protein [Mass/Vol] 7.1 g/dL 6.4-8.9 [facility] RBC Auto (Bld) [#/Vol]Ordere d By: Kalyan Guzman on 06-01-2023 RBC (Bld) [#/Vol] 4.77 10*6/uL 3.60-5.00 [facility] RBC morphologyOrdered By: Barbi Guzman on 06-01-2023 RBC morphology finding Nom (Bld) Normal Normal [facility] Segmented neutrophils/100 WB C Manual cnt (Bld)Ordered By: Kalyan Gumzan on 06-01-2023 Segmented neutrophils/100 WBC (Bld) 54 % 50-70 [facility] Serum or plasma albumin/glob ulin mass ratioOrdered By: Kalyan Guzman on 06-01-2023 Albumin/Globulin [Mass ratio] 1.6 {ratio} [facility] Serum or plasma anion gap de terminationOrdered By: Kalyan Guzman on 06-01-2023 Anion gap [Moles/Vol] 10.9 mmol/L 6.0-15.0 [facility] Serum or plasma carcinoembry onic antigen measurement (mass/volume)Ordered By: Kalyan Guzman on 06-01-2023 Carcinoembryonic Ag [Mass/Vol] 1.6 ng/mL 0.0-3.0 [facility] Sodium [Moles/volume] in Ser um or PlasmaOrdered By: Kalyan Guzman on 06-01-2023 Sodium [Moles/Vol] 140 mmol/L 136-145 [facility] Urea nitrogen [Mass/volume] in Serum or PlasmaOrdered By: Kalyan Guzman on 08-14-2023 Urea nitrogen [Mass/Vol] 14 mg/dL 7-25 [facility] WBC Auto (Bld) [#/Vol]Ordere d By: Kalyan Diingris on 06-01-2023 WBC (Bld) [#/Vol] 4.9 10*3/uL 3.8-11.6 [facility] MG MAMM SCREEN 3D BALTAZAR CADon 11-05-2022 MG MAMM SCREEN 3D BALTAZAR CAD Patient: RENETTA ATWOOD Exam Date: 11/05/2022 : 1955 Gender:F Ordering : DR VINCE VILLEGAS D.O. Admission #: [id number] Family : Order #: [id number] CLICK HERE TO VIEW EXAM RADIOLOGY REPORT [...] colon cancer at age 68. LOCATION: [facility] BREAST COMPOSITION: Scattered areas fibroglandular density. [...] M.D. on 11/05/2022 at 10:05 Normal [facility] CNOVon 12-17-2021 CNOV Office Visit (OTAUCR) ---- RENETTA ATWOOD ([id number]) 1955 F Date Time Provider Department 12/17/21 12:30 PM ELIZABETH DHALIWAL During your visit today, we recorded the following information about you: PAOLO Pearl 12/25/2021 2:20 PM Signed [facility] [place] [facility] COCHLEAR IMPLANT ADULT PROGRAMMING Name: Renetta Atwood CC#: [id number] Date of Service: December 17, 2021 Date of : 1955 Age: [age] year old COCHLEAR IMPLANT INFORMATION (see below for all device details) Updated: December 17, 2021 ? Right ear: Phonak Audeo [id number] [employer] fit and managed at an outside facility ? Left ear: ? External Processor: Cochlear [place] [id number] (Nucleus 7)? Processor SN: [id number]? Magnet strength: 2 ? Internal Device: Cochlear CI532 Profile with Slim Modiolar Electrode Array Internal Device SN: [id number] ?Inactiv e electrodes: ?1-5, 22-21?(non-auditory percept; pressure) [...] Speech perception testing was completed at 60 forms builder using recorded stimuli in the sound field at 0 degrees azimuth. NOTE: The contralateral ear was plugged and muffed or masked during testing. The following testing and results were obtained: Btbhjruzg-Zqhrlix-S onsonant Words (CNC) Test Condition List # [...] were interpolat (more content not included)... Normal [facility] CT LOWER EXTREMITY WO CON RT on 06-17-2021 CT LOWER EXTREMITY WO CON RT STUDY: CT of the right hip without intravenous contrast dated 06/17/2021. INDICATION: RIGHT HIP PAIN COMPARISON: None. ACCESSION NUMBER(S): [id number] ORDERING CLINICIAN: Kameron Anthony TECHNIQUE: Axial CT [...] MRI is recommended for further assessment. Normal [facility] COVID-19 Positive/Negativeon 02-11-2021 SARS-CoV-2 (COVID-19) N gene MAULIK+probe Ql (Resp) Negative Negative [facility] Comment on above: Testing for SARS-CoV -2 by RT-PCRThis test was developed and its performance characteristics determined by [employer] [place] and validated at the [facility]. This test has not been FDA cleared [...] (COVID-19) RNA MAULIK+probe Ql (Unsp spec) N/A [facility] Vital Signs Date Time Vital Sign Value Performing Clinician Facility 06-01-2023 09:09-0400 Diastolic blood pressure 50 mm[Hg] DO [employer] Work Phone: [facility] 06-01-2023 09:09-0400 Heart rate 74 /min DO [employer] Work Phone: [facility] 06-01-2023 09:09-0400 Respiratory rate 16 /min DO [employer] Work Phone: [facility] 06-01-2023 09:09-0400 SaO2% (BldA) [Mass fraction] 99 % DO [employer] Work Phone: [facility] 06-01-2023 09:09-0400 Systolic blood pressure 94 mm[Hg] DO [employer] Work Phone: [facility] 06-01-2023 07:35-0400 Body height 162.56 cm DO [employer] Work Phone: [facility] 06-01-2023 07:35-0400 Body weight 74.38 kg DO Vince Villegas Work Phone: [facility] 05-13-2023 09:30-0400 Body height 162.56 cm Vince Ball Other [employer] Other 05-13-2023 09:30-0400 Body mass index (BMI) [Ratio] 28.94 kg/m2 Vince Ball Other [employer] Other 05-13-2023 09:30-0400 Body weight 76.48 kg Vince Ball Other [employer] Other 05-13-2023 09:30-0400 Diastolic blood pressure 80 mm[Hg] Vince Ball Other [employer] Other 05-13-2023 09:30-0400 Respiratory rate 12 /min Vince Ball Other [employer] Other 05-13-2023 09:30-0400 Systolic blood pressure 119 mm[Hg] Vince Villegas Other [employer] Other Encounters Encounter Date Encounter Type Care Provider Facility Start: 11-16-2023 End: 11-16-2023 ambulatory Vince Villegas Other [employer] Other Start: 11-16-2023 Telephone encounter Vince Villegas [facility] Start: 10-30-2023 End: 10-30-2023 ambulatory Vince Villegas Other [employer] Other Start: 10-30-2023 Telephone encounter Vince Villegas [...] 08-10-2023 End: 08-10-2023 ambulatory Vince Villegas Other [facility] [employer] Other Start: 08-10-2023 Telephone encounter [facility] Start: 06-24-2023 End: 06-24-2023 ambulatory Vince Villegas Facility:[facility] Start: 06-24-2023 End: 06-24-2023 ambulatory DO Vince Villegas Work Phone: [facility] Work Phone: Start: 06-24-2023 End: 06-24-2023 Patient encounter procedure DO Vince Villegas Work Phone: [facility] [place] Work Phone: Start: 06-02-2023 End: 06-02-2023 ambulatory Kalyan Guzman Other [facility] Other Start: 06-02-2023 Telephone encounter Kalyan [facility] Start: 06-01-2023 Telephone encounter [facility] Start: 06-01-2023 End: 06-01-2023 ambulatory Kalyan Guzman Facility:[facility] Start: 06-01-2023 End: 06-01-2023 Admission to [facility] DO Vince Villegas Work Phone: [facility] Work Phone: Start: 06-01-2023 End: 06-01-2023 ambulatory DO Vince Villegas Work Phone: [facility] Work Phone: Start: 05-25-2023 End: 05-25-2023 ambulatory Vince Villegas Other [facility] Other Start: 05-25-2023 Telephone encounter Vince PAREDES [facility] Start: 05-13-2023 End: 05-13-2023 ambulatory Vince Villegas Other [facility] Other Start: 05-13-2023 Office outpatient visit 15 minutes Vince Villegas [facility] Start: 04-07-2023 End: 04-07-2023 ambulatory Kalyan Guzman Other [facility] Other Start: 04-07-2023 Telephone encounter Kalyan Andrews [employer] Start: 02-19-2023 End: 02-19-2023 ambulatory Vince Villegas Other [facility] Other Start: 02-19-2023 Nursing evaluation o f patient and report Vince Villegas [facility] Start: 11-05-2022 End: 11-06-[address] [...] on above: Result Comment: PERF ORMED BY: [facility] [address] [place] [address] PATHOLOGIST COAL DIGGER ESTEE KAPOOR M.D. Performed By: #### D IFF CBC, CEA, CMP #### [facility] [address] [place] [address] Start: 06-01-2023 Screening colonoscopy Kwesi Villegas Work Phone: Plan of Treatment Date Care Activity Detail Author Start: 06-01-2023 End: 06-01-2023 [facility] Patient Education Colon polyps H emorrhoids (DC) Diverticulosis (DC) [facility] Work Phone: Immunizations Immunization Date Immunization Notes Care Provider Fa cili 10-05-2021 COVID-19 Vaccine Pfi zer - Documentation Purposes Only Kalyan Guzman Other [facility] Other 04-04-2021 COVID-19 Vaccine Pfi zer - Documentation Purposes Only aKlyan Guzman Other [facility] Other 03-14-2021 COVID-19 Vaccine Pfi zer - Documentation Purposes Only Kalyan Guzman Other [facility] Other 06-24-2018 pneumococcal polysaccharide vaccine, 23 valent Kalyan Guzman Other [facility] Other 02-01-2018 pneumococcal conjuga te vaccine, 13 valent Kalyan Guzman Other [facility] Other Payers Date Payer Category Payer Medicare [id number] 1959 Self-pay [id number] 1959 Unknown [id number] 1955 Unknown [id number] 2.16.84 [id number] 1955 Unknown [id number] 2.16.84 0.1.445488.3.579.2.593 1955 Unknown [id number] 2.16.84 0.1.179544.3.579.2.593 1955 Unknown [id number] 2.16.840 .1.025448.3.579.2.1259 1956 Unknown [id number] 2.16.840 .1.528357.3.579.2.1259 1956 Unknown [id number] 2.16.840 .1.258597.3.579.2.1259 1956 Unknown [id number] 2.16.840 .1.914579.3.579.2.1259 1956 Unknown [id number] 2.16.840 .1.838434.3.579.2.1259 1956 Unknown [id number] 2.16.840 .1.548879.3.579.2.1259 1955 Unknown [id number] 2.16.840 .1.249280.3.579.2.1259 1955 Unknown [id number] 2.16.840 .1.562842.3.579.2.1259 Medicaid [id number] Unknown [id number] 2.16.8 40.1.217865.3.579.2.531 Unknown [id number] 2.16.8 40.1.523439.3.579.2.531 Social History Date Type Detail Facility Tobacco smoking status NHIS Unknown if ever smoked [facility] Start: 1955 Sex Assigned At Female F [facility] Sex Assigned At Sex Assigned At Bir th [facility] Other Start: 06-01-2023 Tobacco smoking status NHIS Never smoked tobacco (finding) [facility] Goals Date Patient Goal Desired Activity /State Clinical Notes 12-17-2021 to 06-02-2023 Note Date & Type Note Facility 06-02-2023 Evaluation note Encounter Date Diagnosis Assessment Notes May, Mass of colon (ICD-10 - K63.89) [facility] Other 08-14-[address] [facility]08-07-2023 Evaluation note* Encounter Date Diagnosis Assessment Notes Treatment Notes Treatment Clinical Notes May, Overweight (ICD-10 - E66.3) [facility] Other 07-26-2023 Evaluation note* Encounter Date Diagnosis [...] Apr, Other specified hypothyroidism (ICD-10 - E03.8) [facility] Other 05-04-2023 Evaluation note* Encounter Date Diagnosis Assessment Notes Treatment Notes Treatment Clinical Notes February, Seasonal allergic conjunctivitis (ICD-10 - H10.10) February, Seasonal allergic rhinitis due to pollen (ICD-10 - J30.1) [facility] Other 03-01-2022 NoteHNO ID: [id number] Author: PAOLO Pearl Service: ? 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 Right ear: Asmitakatie Brandi B90-13 [employer] and managed at an outside facility ? Left ear: ? External Processor: Cochlear Wisherys TC9657 (Nucleus 7)? Processor SN: [id number]? Magnet strength: 2 ? Internal Device: Cochlear CI532 Profile with Slim Modiolar Electrode Array Internal Device SN: [id number] ?Inactive electrodes: ?1-5, 22-21?(non-auditory percept; pressure) ? [...] 6; Sensitivity: 12.) after programming. See the [employer] Audiogram for obtained thresholds. Speech perception testing was completed at 60 forms builder using recorded stimuli in the sound field at 0 degrees azimuth. NOTE: The contralateral ear was plugged and muffed or masked during testing. The following testing and results were obtained: N[employer]hwinix-Httowej-Mkcdifjmm Words (CNC) Test Condition List # Phonemes [...] ASC), SNR-NR,WNR Active controls (more content not included)...[facility] Evaluation noteNo Assessments Information [facility] note[facility] InformationNort [employer] Other Evaluation noteNo assessment information available [facility] Work Phone: History and physical note Author Kalyan Guzman [facility] June 01, 2023 8:14am Note Date/Time June 01, 2023 8: 14am [facility] [address] [place] [address] Gastroenterology H&P Signed Patient: Renetta Atwood MR#: [id number] : 1955 Acct:[id number] Age/Sex: 67 / F Adm Date: 3 Loc: Room: Type: [facility] Attending Dr: Kalyan Guzman MD Copies to: [...] signed by Kalyan Guzman MD> 06/01/23 0814 [facility] Work Phone: [facility] Narrative - Reported* Type Description Date [...] Surgical History EGD Hospitalization History SEE SURGICAL [employer] Other [facility] general Narrative - Reported* Type Description Date Surgical History LUMBAR LAMINECTOMY 1988 Surgical History VAGINAL TAPING PROCEDURE 2006 Surgical History BLADDER SUSPENSION 2013 Surgical History RIGHT LOWER EXTR VEIN STRIPPING 2013 Surgical History BUNIONECTOMY LEFT FOOT Surgical History BREAST REDUCTION SURGERY 2016 Surgical History COLONOSCOPY 2016 Surgical History EGD Hospitalization History SEE SURGICAL [employer] Other [facility] general Narrative - Reported* Type Description Date [...] Surgical History EGD Hospitalization History SEE SURGICAL [employer] Other history general Narrative - Reported* Type [...] CT abd/pelvis) 05/2023 Hospitalization History SEE SURGICAL [facility] Other History general Narrative - Reported* Type [...] year) 07/2023 Hospitalization History SEE SURGICAL HX [facility] Other Hospital Discharge instructions Additional Instructions DISCHARGE [...] problems. -Follow up with PCP. -Office number [phone].[facility] Work Phone: Advance Directives Advance Directive [...] section and content) DATE CREATED AUTHOR 06/17/2021 [facility] DATE CREATED AUTHOR AUTHOR'S ORGANIZ ATION 01/07/2022 [facility] DATE CREATED AUTHOR AUTHOR'S ORGANIZ ATION 01/24/2023 [facility] DATE CREATED AUTHOR AUTHOR'S ORGANIZ ATION 07/05/2023 [facility] DATE CREATED AUTHOR AUTHOR'S ORGANIZ ATION 10/24/2023 [facility] EPIC REASON FOR VISIT (unrecogniz [...] BE BASED ON THE PRIMARY CLINICAL RECORDS. [facility]. provides no warranty or guarantee of the accuracy or completeness of information in this document.
[2024-06-23 12:01] LABS: Thyroid Stimulating Hormone 1.877 uIU/mL (0.358-3.740)
== END 2024-06-23 09:57 | disposition home or self-care (01) ==
LOC: LAB 09:56
PROVIDERS: PCP Internal Medicine; Visit Provider Internal Medicine
DX: E03.9 Hypothyroidism, unspecified (principal)
CPT/HCPCS: 36415; 84443

== ENCOUNTER 2024-10-06 09:20 | Outpatient (OUT) | payer MEDICARE, OTHER, SELFPAY ==
--- NOTE | 2024-10-06 09:31 | CT_ITS ---
The [address] [address] Patient Name: RENETTA ATWOOD MRN: [id number] date: 1955 Sex: F Assigned Patient Location: LAB Current Patient Location: LAB Accession/Order Number: [id number] Exam Date: 10/06/2024 09:55 Report Date: 10/06/2024 12:38 At the request of: MARYCRUZ SAUCEDO Procedure: CT head/brain wo/w con EXAM: CT head/brain wo/w con HISTORY: Headache, Intermittent Paresthesia Of Hand And Foot COMPARISON: None. TECHNIQUE: Axial soft tissue and bone windows through the calvarium with coronal and sagittal reformats before and following intravenous administration of contrast. Findings: The paranasal sinuses and right mastoid air cells are well aerated. Partial opacification of the left mastoid air cells. No air-fluid levels. There is a left-sided cochlear implant generates streak artifact which limits evaluation of the adjacent structures. No extra-axial fluid collection. No intra-axial or extra-axial bleed. No enhancing mass, mass effect or midline shift. The zamora-white matter differentiation is preserved. There are white matter low attenuation lesions which are nonspecific but commonly attributed to chronic small vessel ischemic disease. The brain parenchymal volume is reduced yet likely age-appropriate. The ventricles are nondilated. The basal cisterns are patent. The craniovertebral junction is unremarkable. CT/CT head/brain wo/w con IMPRESSION: 1. No acute intracranial abnormality. 2. Senescent changes. Electronically authenticated by: JOSE EDUARDO WOMACK Date: 10/06/2024 12:38
--- OUTSIDE RECORDS SUMMARY | 2024-10-06 09:33 | XMS_ITS | CCD ---
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 Role Phone Kalyan Guzman Attending Provider Vince Villegas Primary Care Provider SHERYL, DR JOEL Admitting Unavailable SHERYL, DR JOEL Attending Unavailable SHERYL, DR JOEL Primary Care Unavailable SHERYL, DR JOEL Consulting Unavailable SHERYL, DR JOEL Admitting Unavailable SHERYL, DR JOEL Attending Unavailable SHERYL, DR JOEL Primary Care Unavailable SHERYL, DR JOEL Consulting Unavailable ZIEBER, DR CABRERA [...] Guzman Attending Unavailable Kalyan Guzman Admitting Unavailable FLACO BROOKS Attending Unavailable SUE, ERIN P Referring Unavailable KELBLEYFLACO Attending Unavailable SUE, ERIN P Referring Unavailable KAREL CHINCHILLA Attending Unavailable JJ MOTA Referring Unavailable HANH WRIGHT Attending Unavailable SUE, ERIN P Referring Unavailable FLACO BROOKS Attending Unavailable SUE, ERIN P Referring Unavailable STACI COLLAZO Attending Unavailable VINCE VILLEGAS Referring Unavailable HANH WRIGHT Attending Unavailable HANH WRIGHT Attending Unavailable ERIN ANTHONY P Referring Unavailable HANH WRIGHT Attending Unavailable JJ MOTA Referring Unavailable SABINE CHRISTIAN Attending Unavailable Vince Villegas MD Primary Care Provider Allergies Allergy Classification Reported Allergen(s) Allergy Type Date of Onset Reaction(s) Facility (8 sources) Adhesive agent Drug allergy Unknown [facility] Other (8 sources) Adhesive Tape Drug allergy Unknown [facility] Other (6 sources) oxyCODONE Drug Allergy 10-11-2007 [facility] (6 sources) Wound Dressing Adhesive Drug Allergy 06-16-2023 Unknown [facility] Healthcare Medications Current Medications Medication Drug Class(es) Dates Sig (Normalized) Sig (Original) Cream Base No.47 (Bulk) (Base, Pcca Vanpen) cream (2 sources) Start: 02-13-2021 Cream Base No.47 (Bulk) (Base, Pcca Vanpen) cream Active 1 APPLIC TOPICAL As Directed February 13, 2021 12:00am Hormone Cream Base cream (6 sources) Start: 10-19-2017 Hormone Cream Base cream 10/19/2017 Active levothyroxine sodium 0.05 mg oral tablet (17 sources) l-Thyroxine Start: 02-13-2021 take 50 ug by mouth once daily Levothyroxine Active 50 MCG PO Daily February 13, 2021 12:00am take 1 tablet by mouth in the mo rning levothyroxine (Synthroid, Levoxyl) 100 MCG tablet Take 100 mcg by mouth in the morning. Active take 1 tablet by mouth once blessing y Levothyroxine Sodium 50 mcg TAKE 1 TABLET BY MOUTH DAILY for 30 Active phentermine hydrochloride 37.5 mg oral tablet (14 sources) Sympathomimetic Amine Anorectic Start: 04-13-2023 take 1 tablet by mouth once daily before breakfast Adipex-P 37.5 MG 1 tablet before breakfast Orally Once a day for 30 days May, Active triamcinolone acetonide 1 mg/ml topical cream (12 sources) Corticosteroid Start: 07-25-2024 triamcinolone (Kenalog) 0.1 % cream Indications: Other atopic dermatitis Apply to affected areas, up to twice a day when flared, do not use one the face, groin, or underarms, 30 day supply 30 g 11 07/25/2024 Active Start: 07-25-2024 triamcinolone (Kenalog) 0.1 % cream Indications: Other atopic dermatitis Apply to affected areas, up to twice a day when flared, do not use one the face, groin, or underarms, 30 day supply 30 g 11 07/25/2024 Active Start: 02-19-2023 Kenalog-40 February, 40 mg Completed/Discontinued Medications Medication Drug Class(es) Dates Sig (Normalized) Sig (Original) omeprazole 20 mg oral tablet (2 sources) Proton Pump Inhibitor Start: 02-13-2021 End: 06-01-2023 take 20 mg by mouth twice daily Omeprazole Magnesium Discontinued 20 MG PO Twice daily 112 56 February 13, 2021 12:00am June 01, 2023 7:40am Problems Active Problems Problem Classification Problem Date Documented Da te Episodic/Chronic Allergic reactions (2 sources) Atopic dermatitis; Translations: [Other atopic dermatitis] 07-25-2024 Chronic Blindness and vision defects (2 sources) Blurring of visual image; Translations: [Other visual disturbances] 07-21-2024 Episodic Coagulation and hemorrhagic disorders (9 sources) Thrombocytopenic disorder; Translations: [Thrombocytopenia, unspecified] Chronic Headache; including migraine (2 sources) Intractable chronic tension headache; Translations: [Chronic tension-type headache, intractable] 07-21-2024 Chronic Inflammation; infection of eye (except that caused by tuberculosis or sexually transmitteddisease) (1 source) Acute atopic conjunctivitis, unspecified eye Episodic Other and unspecified benign neoplasm (2 sources) Melanocytic nevus of trunk; Translations: [Melanocytic nevi of trunk] 07-25-2024 Episodic Other circulatory disease (2 sources) Spider nevus; Translations: [Nevus, non-neoplastic] 07-25-2024 Episodic Other ear and sense organ disorders (9 sources) Sensorineural hearing loss, bilateral; Translations: [Sensorineural hearing loss, bilateral] Chronic Other gastrointestinal disorders (10 sources) Dysphagia; Translations: [Dysphagia, unspecified] Episodic Other gastrointestinal disorders (2 sources) Other specified diseases of intestine; Translations: [Other specified diseases of intestine] Onset: Episodic Other nervous system disorders (2 sources) Numbness and tingling sensation of skin; Translations: [Anesthesia of skin] 07-21-2024 Episodic Other nutritional; endocrine; and metabolic disorders [...] MALIG NEOPLASM BREAST] Onset: 3 Episodic Other skin disorders (2 sources) Seborrheic keratosis; Translations: [Other seborrheic keratosis] 07-25-2024 Episodic Other skin disorders (2 sources) Sebaceous hyperplasia; Translations: [Other specified follicular disorders] 07-25-2024 Episodic Other upper respiratory disease (10 sources) Allergic rhinitis due to pollen; Translations: [Allergic rhinitis due to pollen] Chronic Other upper respiratory disease (1 source) Allergic rhinitis due to pollen Chronic Residual codes; unclassified (2 sources) Obstructive sleep apnea syndrome; Translations: [Obstructive sleep apnea (adult) (pediatric)] 07-21-2024 Chronic Residual codes; unclassified (1 source) Family [...] Translations: [ENCOUNTER FOR IMMUNIZATION] Onset: 03-06-2022 Episodic Neoplasms of unspecified nature or uncertain behavior (6 sources) Neoplasm of uncertain behavior of cecum; 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 Impression dictated by: Michael Keenan Jr., D.ORenee06/24/2023 2:20 PM Dictation Location: [place] [address] Transcribed By: PWS 06/24/23 1420 Dictated By: Michael Keenan Jr, DO 06/24/23 1418 Signed By: 06/24/23 1420 Normal [facility] Alanine aminotransferase [En zymatic activity/volume] in Serum or PlasmaOrdered By: Kalyan Guzman on 06-01-2023 ALT [Catalytic activity/Vol] 9 U/L 7-52 [facility] Albumin [Mass/volume] in Ser um or Plasma by Bromocresol green (BCG) dye binding methoOrdered By: Kalyan Guzman on 06-01-2023 Albumin BCG dye [Mass/Vol] 4.4 g/dL 3.5-5.7 [facility] Alkaline phosphatase [Enzyma tic activity/volume] in Serum or PlasmaOrdered By: Kalyan Guzman on 06-01-2023 ALP [Catalytic activity/Vol] 72 U/L 34-104 [facility] Aspartate aminotransferase [ Enzymatic activity/volume] in Serum or PlasmaOrdered By: Kalyan Guzman on 06-01-2023 AST [Catalytic activity/Vol] 22 U/L 13-39 [facility] Band form neutrophils/100 WB C Manual cnt (Bld)Ordered By: Kalyan Guzman on 06-01-2023 Band form neutrophils/100 WBC (Bld) 2 % 0-5 [facility] Basophils Auto (Bld) [#/Vol] Ordered By: Kalyan Guzman on 06-01-2023 Basophils (Bld) [#/Vol] N/A F [facility] Basophils/100 WBC Auto (Bld) Ordered By: Kalyan Guzman on 06-01-2023 Basophils/100 WBC (Bld) N/A F [facility] Basophils/100 WBC Manual cnt (Bld)Ordered By: Kalyan Guzman on 06-01-2023 Basophils/100 WBC (Bld) 1 % 0-2 F [facility] Bilirubin.total [Mass/volume ] in Serum or PlasmaOrdered By: Kalyan Guzman on 06-01-2023 Bilirubin [Mass/Vol] 0.9 mg/dL 0.3-1.0 [facility] Calcium [Mass/volume] in Ser um or PlasmaOrdered By: Kalyan Guzman on 06-01-2023 Calcium [Mass/Vol] 9.4 mg/dL 8.6-10.3 [facility] Carbon dioxide, total [Moles /volume] in Serum or PlasmaOrdered By: Kalyan Guzman on 06-01-2023 CO2 [Moles/Vol] 25.2 mmol/L 21.0-31.0 [facility] Chloride [Moles/volume] in S javier or PlasmaOrdered By: Kalyan Guzman on 06-01-2023 Chloride [Moles/Vol] 108 mmol/L 98-107 [facility] Comprehensive Metabolic Pane luis enrique 06-01-2023 Albumin [Mass/Vol] 4.4 g/dL Normal 3.5-5.7 [facility] Comment on above: Performed By: #### D IFF CBC, CEA, CMP #### [facility] [address] Albumin/Globulin [Mass ratio] 1.6 {ratio} Normal [facility] Comment on above: Performed By: #### D IFF CBC, CEA, CMP #### [facility] [address] ALP [Catalytic activity/Vol] 72 U/L Normal 34-104 [facility] Comment on above: Performed By: #### D IFF CBC, CEA, CMP #### [facility] [address] [place] [id number] [place] ALT [Catalytic activity/Vol] 9 U/L Normal 7-52 [facility] Comment on above: Performed By: #### D IFF CBC, CEA, CMP #### [facility] [address] [place] [id number] [place] Anion gap [Moles/Vol] 10.9 mmol/L Normal 6.0-15.0 [facility] Comment on above: Performed By: #### D IFF CBC, CEA, CMP #### [facility] [address] [place] [id number] [place] AST [Catalytic activity/Vol] 22 U/L Normal 13-39 [facility] Comment on above: Performed By: #### D IFF CBC, CEA, CMP #### [facility] [address] Bilirubin [Mass/Vol] 0.9 mg/dL Normal 0.3-1.0 [facility] Comment on above: Performed By: #### D IFF CBC, CEA, CMP #### [facility] [address] Calcium [Mass/Vol] 9.4 mg/dL Normal 8.6-10.3 [facility] Comment on above: Performed By: #### D IFF CBC, CEA, CMP #### [facility] [address] Chloride [Moles/Vol] 108 mmol/L High 98-107 [facility] Comment on above: Performed By: #### D IFF CBC, CEA, CMP #### [facility] [address] CO2 [Moles/Vol] 25.2 mmol/L Normal 21.0-31.0 [facility] Comment on above: Performed By: #### D IFF CBC, CEA, CMP #### [facility] [address] Creatinine [Mass/Vol] 0.72 mg/dL Normal 0.60-1.20 [facility] Comment on above: Performed By: #### D IFF CBC, CEA, CMP #### [facility] [address] Creatinine Clr Calc Pharmacy 68.33 Normal [facility] Comment on above: Result Comment: PERF ORMED BY: [place] [address] PATHOLOGIST BOTTLE AND GLASS INSPECTOR ESTEE KAPOOR M.D. Performed By: #### D IFF CBC, CEA, CMP #### [facility] [address] GFR/1.73 sq M.predicted MDRD (S/P/Bld) [Vol rate/Area] mL/min/{1.73_m2} Normal [facility] Comment on above: Performed By: #### D IFF CBC, CEA, CMP #### [facility] [address] [place] [address] [place] Globulin (S) [Mass/Vol] 2.7 g/dL Normal F [facility] Comment on above: Performed By: #### D IFF CBC, CEA, CMP #### [facility] [address] Glucose [Mass/Vol] 89 mg/dL Normal 70-100 [facility] Comment on above: Result Comment: [facility] Glucose Reference Range is dependent on time and content of last meal. Glucose of more than 200 mg/dL in a nonstressed, ambulatory subject supports the diagnosis of Diabetes Mellitus. ADA recommended reference range Performed By: #### D IFF CBC, CEA, CMP #### [facility] [address] [place] [address] [place] Potassium [Moles/Vol] 4.1 mmol/L Normal 3.5-5.1 [facility] Comment on above: Performed By: #### D IFF CBC, CEA, CMP #### [facility] [address] [place] [address] [place] Protein [Mass/Vol] 7.1 g/dL Normal 6.4-8.9 [facility] Comment on above: Performed By: #### D IFF CBC, CEA, CMP #### [facility] [address] [place] [address] [place] Sodium [Moles/Vol] 140 mmol/L Normal 136-145 [facility] Comment on above: Performed By: #### D IFF CBC, CEA, CMP #### [facility] [address] [place] [id number] [place] Urea nitrogen [Mass/Vol] 14 mg/dL Normal 7-25 [facility] Comment on above: Performed By: #### D IFF CBC, CEA, CMP #### [facility] [address] [place] [id number] [place] Creatinine [Mass/volume] in Serum or PlasmaOrdered By: Kalyan Guzman on 06-01-2023 Creatinine [Mass/Vol] 0.72 mg/dL 0.60-1.20 [facility] Diff and CBCon 06-01-2023 Band form neutrophils/100 WBC (Bld) 2 % Normal 0-5 [facility] Comment on above: Performed By: #### D IFF CBC, CEA, CMP #### [facility] [address] [place] [phone] [place] Basophils/100 WBC (Bld) 1 % Normal 0-2 F [facility] Comment on above: Performed By: #### D IFF CBC, CEA, CMP #### [facility] [address] [place] [phone] [place] Eosinophils/100 WBC (Bld) 1 % Normal 1-3 [facility] Comment on above: Performed By: #### D IFF CBC, CEA, CMP #### [facility] [address] Erythrocyte distribution width (RBC) [Ratio] 13.8 % Normal 11.9-15.3 [facility] Comment on above: Performed By: #### D IFF CBC, CEA, CMP #### [facility] [address] Hematocrit (Bld) [Volume fraction] 42.6 % Normal 34.0-46.4 [facility] Comment on above: Performed By: #### D IFF CBC, CEA, CMP #### [facility] [address] [place] [phone] [place] Hemoglobin (Bld) [Mass/Vol] 13.9 g/dL Normal 11.8-15.4 [facility] Comment on above: Performed By: #### D IFF CBC, CEA, CMP #### [facility] [address] [place] [phone] [place] Lymphocytes/100 WBC (Bld) 22 % Normal 18-42 [facility] Comment on above: Performed By: #### D IFF CBC, CEA, CMP #### [facility] [address] [place] [phone] [place] MCH (RBC) [Entitic mass] 29.2 pg Normal 24.7-34.3 [facility] Comment on above: Performed By: #### D IFF CBC, CEA, CMP #### [facility] [address] MCV (RBC) [Entitic vol] 89.2 fL Normal 80-100 F [facility] Comment on above: Performed By: #### D IFF CBC, CEA, CMP #### [facility] [address] Mean Corpuscular HGB Conc 32.8 g/dL Normal 32.0-35.0 [facility] Comment on above: Performed By: #### D IFF CBC, CEA, CMP #### [address] Monocytes/100 WBC (Bld) 20 % High 2-11 F [facility] Comment on above: Performed By: #### D IFF CBC, CEA, CMP #### [address] Platelet Estimate Normal Normal Normal [facility] Comment on above: Performed By: #### D IFF CBC, CEA, CMP #### [address] Platelet mean volume (Bld) [Entitic vol] 7.8 fL Normal 6.3-10.7 [facility] Comment on above: Performed By: #### D IFF CBC, CEA, CMP #### [address] Platelet Morphology Normal Normal Normal [facility] Comment on above: Result Comment: PERF ORMED BY: [place] [address] PATHOLOGIST BOTTLE AND GLASS INSPECTOR ESTEE KAPOOR M.D. Performed By: #### D IFF CBC, CEA, CMP #### [address] Platelets (Bld) [#/Vol] 157 10*3/uL Normal 150-450 [facility] Comment on above: Performed By: #### D IFF CBC, CEA, CMP #### [address] [place] [address] [place] RBC (Bld) [#/Vol] 4.77 10*6/uL Normal 3.60-5.00 [facility] Comment on above: Performed By: #### D IFF CBC, CEA, CMP #### [facility] [address] RBC morphology finding Nom (Bld) Normal Normal Normal [facility] Comment on above: Performed By: #### D IFF CBC, CEA, CMP #### [facility] [address] Segmented neutrophils/100 WBC (Bld) 54 % Normal 50-70 [facility] Comment on above: Performed By: #### D IFF CBC, CEA, CMP #### [facility] [address] WBC (Bld) [#/Vol] 4.9 10*3/uL Normal 3.8-11.6 [facility] Comment on above: Performed By: #### D IFF CBC, CEA, CMP #### [facility] [address] Eosinophils Auto (Bld) [#/Vo l]Ordered By: Kalyan Guzman on 06-01-2023 Eosinophils (Bld) [#/Vol] N/A [facility] Eosinophils/100 WBC Auto (Bl d)Ordered By: Kalyan Guzman on 06-01-2023 Eosinophils/100 WBC (Bld) N/A [facility] Eosinophils/100 WBC Manual c nt (Bld)Ordered By: Kalyan Guzman on 06-01-2023 Eosinophils/100 WBC (Bld) 1 % 1-3 [facility] Erythrocyte distribution wid th Auto (RBC) [Ratio]Ordered By: Kalyan Guzman on 06-01-2023 Erythrocyte distribution width (RBC) [Ratio] 13.8 % 11.9-15.3 [facility] Globulin Calc (S) [Mass/Vol] Ordered By: Kalyan Guzman on 06-01-2023 Globulin (S) [Mass/Vol] 2.7 g/dL F [facility] Glucose [Mass/volume] in Ser um or PlasmaOrdered By: Kalyan Guzman on 06-01-2023 Glucose [Mass/Vol] 89 mg/dL 70-100 [facility] Comment on above: ADA recommended refe rence rangeRandom Glucose Reference Range is dependent on time and content of last meal. Glucose of more than 200 mg/dL in a nonstressed, ambulatory subject supports the diagnosis of Diabetes Mellitus. Hematocrit Auto (Bld) [Volum e fraction]Ordered By: Kalyan Guzman on 06-01-2023 Hematocrit (Bld) [Volume fraction] 42.6 % 34.0-46.4 [facility] Hemoglobin [Mass/volume] in BloodOrdered By: Kalyan Guzman on 06-01-2023 Hemoglobin (Bld) [Mass/Vol] 13.9 g/dL 11.8-15.4 [facility] Luis Enrique 06-01-2023 L Specimen: [id number] Received: 06/01/23 Status: DERRELL Lester Num: [id number] Spec Type: Surgical Subm Dr: Kalyan Guzman MD Tissues: A Colon Biopsy (TRANSVERSE POLYP) B Colon Biopsy (DESCENDING POLYP) Procedures: HE/Demetris, Gross/Micro L4/2 Age/ Patient Sex Location Account Attending Physician Alberto Atwoodvira Flynn 67/F [id number] Kalyan Guzman MD SPEC NUM: [id number] RECD: 06/01/23 STATUS: DERRELL BATISTA NUM: [id number] TONYA: 06/01/23 DR: Kalyan Guzman MD ENTERED: 06/01/[address] [facility] [address]: NEY TYPE: Surgical DEPT: S ORDERED: HE/4, Gross/Micro [...] submitted in one cassette labeled B1. Specimen: [id number] Received: 06/01/23 Status: DERRELL Batista Num: [id number] Spec Type: Surgical Subm Dr: Kalyan Guzman MD Tissues: A Colon Biopsy (TRANSVERSE POLYP) B Colon Biopsy (DESCENDING POLYP) Procedures: ARACELY Gross/Micro L4/2 Patient: Renetta Atwood [id number] (Continued) Specimen: [id number] Received: 06/01/23 (Continued) Signed (signatur e on file) Mike Chen MD 06/03/23 0952 Specimen: [id number] Received: 06/01/23 Status: DERRELL Batista Num: [id number] Spec Type: Surgical Subm Dr: Kalyan Guzman MD Tissues: A Colon Biopsy (TRANSVERSE POLYP) B Colon Biopsy (DESCENDING POLYP) Procedures: ARACELY Gross/Micro L4/2 Patient: Renetta Atwood [id number] (Continued) Specimen: [id number] Received: 06/01/23 (Continued) Microscopic Description A. Two H E slides reviewed. The microscopic examination confirms the diagnosis. B. Two H E slides reviewed. The microscopic examination confirms the diagnosis. CPT Codes 35624d two Specimen: [id number] Received: 06/01/23 Status: DERRELL Batista Num: [id number] Spec Type: Surgical Subm Dr: Kalyan Guzman MD Tissues: A Colon Biopsy (TRANSVERSE POLYP) B Colon Biopsy (DESCENDING POLYP) Procedures: HE/4, Gross/Micro L4/2 Patient: Renetta Atwood Rina [id number] (Continued) Signed (signatur e on file) Mike Chen MD 06/03/23 0952 Normal [facility] Leukocytes [#/volume] correc rajesh for nucleated erythrocytes in Blood by Automated counOrdered By: Kalyan Guzman on 06-01-2023 WBC corrected for nucl RBC Auto (Bld) [#/Vol] 4.9 10*3/uL 3.8-11.6 [facility] Lymphocytes Auto (Bld) [#/Vo l]Ordered By: Kalyan Guzman on 06-01-2023 Lymphocytes (Bld) [#/Vol] N/A [facility] Lymphocytes/100 WBC Auto (Bl d)Ordered By: Kalyan Guzman on 06-01-2023 Lymphocytes/100 WBC (Bld) N/A [facility] Lymphocytes/100 WBC Manual c nt (Bld)Ordered By: Kalyan Guzman on 06-01-2023 Lymphocytes/100 WBC (Bld) 22 % 18-42 [facility] MCH Auto (RBC) [Entitic mass ]Ordered By: Kalyan Guzman on 06-01-2023 MCH (RBC) [Entitic mass] 29.2 pg 24.7-34.3 [facility] MCHC Auto (RBC) [Mass/Vol]Or dered By: Kalyan Guzman on 06-01-2023 MCHC (RBC) [Mass/Vol] 32.8 g/dL 32.0-35.0 [facility] MCV Auto (RBC) [Entitic vol] Ordered By: Kalyan Guzman on 06-01-2023 MCV (RBC) [Entitic vol] 89.2 fL 80-100 F [facility] Monocytes Auto (Bld) [#/Vol] Ordered By: Kalyan Guzman on 06-01-2023 Monocytes (Bld) [#/Vol] N/A F [facility] Monocytes/100 WBC Auto (Bld) Ordered By: Kalyan Guzman on 06-01-2023 Monocytes/100 WBC (Bld) N/A F [facility] Monocytes/100 WBC Manual cnt (Bld)Ordered By: Kalyan Guzman on 06-01-2023 Monocytes/100 WBC (Bld) 20 % 2-11 F [facility] Neutrophils Auto (Bld) [#/Vo l]Ordered By: Kalyan Guzman on 06-01-2023 Neutrophils (Bld) [#/Vol] N/A [facility] Neutrophils/100 WBC Auto (Bl d)Ordered By: Kalyan Guzman on 06-01-2023 Neutrophils/100 WBC (Bld) N/A [facility] No Panel InformationOrdered By: Kalyan Guzman on 06-01-2023 Estimated GFR (CKD-EPI) > 60.0 mL/Min [facility] Creatinine Clearance (Chem 68.33 [facility] Nucleated erythrocytes [Pres ence] in Blood by Automated countOrdered By: Kalyan Guzman on 06-01-2023 Nucleated RBC Auto Ql (Bld) N/A [facility] Platelet adequacy [Presence] in Blood by Light microscopyOrdered By: Kalyan Guzman on 06-01-2023 Platelets LM Ql (Bld) Normal Normal [facility] Platelet mean volume Auto (B ld) [Entitic vol]Ordered By: Kalyan Guzman on 06-01-2023 Platelet mean volume (Bld) [Entitic vol] 7.8 fL 6.3-10.7 [facility] Platelet morphology finding [Identifier] in BloodOrdered By: Kalyan Guzman on 06-01-2023 Platelet morphology finding Nom (Bld) Normal Normal [facility] Platelets Auto (Bld) [#/Vol] Ordered By: Kalyan Guzman on 06-01-2023 Platelets (Bld) [#/Vol] 157 10*3/uL 150-450 [facility] Potassium [Moles/volume] in Serum or PlasmaOrdered By: Kalyan Guzman on 06-01-2023 Potassium [Moles/Vol] 4.1 mmol/L 3.5-5.1 [facility] Protein [Mass/volume] in Ser um or PlasmaOrdered By: Kalyan Guzman on 06-01-2023 Protein [Mass/Vol] 7.1 g/dL 6.4-8.9 [facility] RBC Auto (Bld) [#/Vol]Ordere d By: Kalyan Guzman on 06-01-2023 RBC (Bld) [#/Vol] 4.77 10*6/uL 3.60-5.00 [facility] RBC morphologyOrdered By: Barbi Guzman on 06-01-2023 RBC morphology finding Nom (Bld) Normal Normal [facility] Segmented neutrophils/100 WB C Manual cnt (Bld)Ordered By: Kalyan Guzman on 06-01-2023 Segmented neutrophils/100 WBC (Bld) 54 % 50-70 [facility] Serum or plasma albumin/glob ulin mass ratioOrdered By: Kalyan Guzman on 06-01-2023 Albumin/Globulin [Mass ratio] 1.6 {ratio} [facility] Serum or plasma anion gap de terminationOrdered By: Kalyan Guzman on 06-01-2023 Anion gap [Moles/Vol] 10.9 mmol/L 6.0-15.0 [facility] Serum or plasma carcinoembry onic antigen measurement (mass/volume)Ordered By: Kalyan Guzman on 06-01-2023 Carcinoembryonic Ag [Mass/Vol] 1.6 ng/mL 0.0-3.0 [facility] Sodium [Moles/volume] in Ser um or PlasmaOrdered By: Kalyan Guzman on 06-01-2023 Sodium [Moles/Vol] 140 mmol/L 136-145 [facility] Urea nitrogen [Mass/volume] in Serum or PlasmaOrdered By: Kalyan Guzman on 06-01-2023 Urea nitrogen [Mass/Vol] 14 mg/dL 7-25 [facility] WBC Auto (Bld) [#/Vol]Ordere d By: Kalyan Guzman on 06-01-2023 WBC (Bld) [#/Vol] 4.9 10*3/uL 3.8-11.6 [facility] MG MAMM SCREEN 3D BALTAZAR CADon 11-05-2022 MG MAMM SCREEN 3D BALTAZAR CAD Patient: RENETTA ATWOOD Exam Date: 11/05/2022 : 1955 Gender:F Ordering : DR VINCE VILLEGAS D.O. Admission #: [id number] Family : Order #: [id number] CLICK HERE TO VIEW EXAM RADIOLOGY REPORT [...] Preciado M.D. on 11/05/2022 at 10:05 Normal [facility] 12-17-2021 CN Office Visit (NEGROUCR) ---- RENETTA ATWOOD ([id number]) 1955 F Date Time Provider Department 12/17/21 12:30 PM ELIZABETH DHALIWAL During your visit today, we recorded the following information about you: PAOLO Pearl 12/25/2021 2:20 PM Signed Head [facility] Ne[facility] [place] [facility] [employer]CHLE[employer] IMPLANT ADULT PROGRAMMING Name: Renetta Atwood [facility] [id number] Date of Service: December 17, 2021 Date of : 1955 Age: [age] year old COCHLEAR IMPLANT INFORMATION (see below for all device details) Updated: December 17, 2021 ? Right ear: Joni Paz B90-13 [employer] and managed at an outside facility ? Left ear: ? External Processor: [employer] [id number] (Nucleus 7)? Processor SN: [id number]? Magnet strength: 2 ? Internal Device: Cochlear CI532 Profile with Slim Modiolar Electrode Array Internal Device SN: [id number] ?Inactiv e electrodes: ?1-5, 22-21?(non-auditory percept; pressure) [...] Speech perception testing was completed at 60 mathematics professor using recorded stimuli in the sound field at 0 degrees azimuth. NOTE: The contralateral ear was plugged and muffed or masked during testing. The following testing and results were obtained: Rdtgzsbrj-Dbtthfr-G onsonant Words (CNC) Test Condition List # [...] were interpolat (more content not included)... Normal [facility] CT LOWER EXTREMITY WO CON RT on 06-17-2021 CT LOWER EXTREMITY WO CON RT STUDY: CT of the right hip without intravenous contrast dated 06/17/2021. INDICATION: RIGHT HIP PAIN COMPARISON: None. ACCESSION NUMBER(S): [id number] ORDERING CLINICIAN: Kameron Anthony TECHNIQUE: Axial CT [...] MRI is recommended for further assessment. Normal [facility] COVID-19 Positive/Negativeon 02-11-2021 SARS-CoV-2 (COVID-19) N gene MAULIK+probe Ql (Resp) Negative Negative [facility] Comment on above: Testing for SARS-CoV -2 by RT-PCRThis test was developed and its performance characteristics determined by [employer] ([employer]) and validated at the [facility]. This test has not been FDA cleared [...] (COVID-19) RNA MAULIK+probe Ql (Unsp spec) N/A [facility] Vital Signs Date Time Vital Sign Value Performing Clinician Facility 07-21-2024 12:37-0400 Body height 160 cm StaciMyPublisher DO Work Phone: [facility] 07-21-2024 12:37-0400 Body mass index (BMI) [Ratio] 27.63 kg/m2 Staci [employer] DO Work Phone: [facility] 07-21-2024 12:37-040 Body weight 70.76 kg StaciMyPublisher DO Work Phone: [facility] 07-21-2024 12:37-0400 Diastolic blood pressure 79 mm[Hg] Staci Tiago DO Work Phone: [facility] 07-21-2024 12:37-0400 Heart rate 88 /min Staci Tiago DO Work Phone: [facility] 07-21-2024 12:37-0400 SaO2% (BldA) [Mass fraction] 98 % Staci Tiago DO Work Phone: [facility] 07-21-2024 12:37-0400 Systolic blood pressure 122 mm[Hg] Staci Tiago DO Work Phone: [facility] 06-01-2023 09:09-0400 Diastolic blood pressure 50 mm[Hg] DO Vince Ball Work Phone: [facility] 06-01-2023 09:09-0400 Heart rate 74 /min DO Vince Ball Work Phone: [facility] 06-01-2023 09:09-0400 Respiratory rate 16 /min DO Vince Ball Work Phone: [facility] 06-01-2023 09:09-0400 SaO2% (BldA) [Mass fraction] 99 % DO Vince Ball Work Phone: [facility] 06-01-2023 09:09-0400 Systolic blood pressure 94 mm[Hg] DO Vince Ball Work Phone: [facility] 06-01-2023 07:35-0400 Body height 162.56 cm DO Vince Ball Work Phone: [facility] 06-01-2023 07:35-0400 Body weight 74.38 kg DO Vince Ball Work Phone: [facility] 05-13-2023 09:30-0400 Body height 162.56 cm Vince Ball Other [facility] [employer] Other 05-13-2023 09:30-0400 Body mass index (BMI) [Ratio] 28.94 kg/m2 Vince Ball Other [facility] [employer] Other 05-13-2023 09:30-0400 Body weight 76.48 kg Vince Villegas Other [employer] Other 05-13-2023 09:30-0400 Diastolic blood pressure 80 mm[Hg] Vince Villegas Other [employer] Other 05-13-2023 09:30-0400 Respiratory rate 12 /min Vince Ball Other [employer] Other 05-13-2023 09:30-0400 Systolic blood pressure 119 mm[Hg] Vince [employer] Other [employer] Other Encounters Encounter Date Encounter Type Care Provider Facility Start: 07-25-2024 End: 07-25-2024 Bame[employer]er[employer]et Sabine A Felter SENIOR FRONT END ENGINEER-AUTO PARKER Work Phone: [facility] Start: 07-25-2024 End: 07-25-2024 [employer] Sabine A Felter SENIOR FRONT END ENGINEER-AUTO PARKER Work Phone: [facility] Start: 07-25-2024 End: 07-25-2024 Office outpatient new 45 minutes Sabine A Felter SENIOR FRONT END ENGINEER-AUTO PARKER Work Phone: [facility] Comment on above: Seborrheic keratosis (Primary Dx); Melanocytic nevus of trunk; Sebaceous hyperplasia of face; Capillary angioma; Other atopic dermatitis Start: 07-25-2024 End: 07-25-2024 ambulatory SABINE A FELTER Not Available Start: 07-21-2024 End: 07-21-2024 [employer] Staci Tiago DO Work Phone: [facility] [address] Start: 07-21-2024 End: 07-21-2024 [employer] Staci Tiago DO Work Phone: [employer] [address] Start: 07-21-2024 End: 07-21-2024 Office outpatient new 45 minutes Staci Tiago DO Work Phone: [facility] [address] Comment on above: Blurred vision; Chronic tension-type headache, intractable; SUNIL (obstructive sleep apnea); Numbness and tingling Start: 07-21-2024 End: 07-21-2024 ambulatory STACI COLLAZO Not Available Start: 11-16-2023 End: 11-16-2023 ambulatory Vince Villegas Other [employer] Other Start: 11-16-2023 Telephone encounter Vince PAREDES [facility] Start: 10-30-2023 End: 10-30-2023 ambulatory Vince Villegas Other [employer] Other Start: 10-30-2023 Telephone encounter Vince PAREDES [facility] Start: 10-22-2023 End: 10-22-2023 ambulatory FLACO KELBLEY Not Available Start: 10-16-2023 End: 10-16-2023 ambulatory FLACO KELBLEY Not Available Start: 10-14-2023 End: 10-14-2023 ambulatory FLACO KELBLEY Not Available Start: 10-08-2023 End: 10-08-2023 ambulatory HANH TATTERSALL Not Available Start: 10-05-2023 End: 10-05-2023 ambulatory HANH TATTERSALL Not Available Start: 10-01-2023 End: 10-01-2023 ambulatory HANH TATTERSALL Not Available Start: 09-28-2023 End: 09-28-2023 ambulatory HANH TATTERSALL Not Available Start: 09-24-2023 End: 09-24-2023 ambulatory KAREL CHINCHILLA Not Available Start: 08-10-2023 End: 08-10-2023 ambulatory Vince Villegas Other [employer] Other Start: 08-10-2023 Telephone encounter Vince Villegas [facility] Start: 06-24-2023 End: 06-24-2023 ambulatory Vince Villegas Facility:[facility] Start: 06-24-2023 End: 06-24-2023 ambulatory DO Vince Villegas Work Phone: [facility] Work Phone: Start: 06-24-2023 End: 06-24-2023 Patient encounter procedure DO Vince Villegas Work Phone: [facility] [place] Work Phone: Start: 06-02-2023 End: 06-02-2023 ambulatory Kalyan Guzman Other [employer] Other Start: 06-02-2023 Telephone encounter Kalyan [facility] Start: 06-01-2023 Telephone encounter Vince PAREDES [facility] Start: 06-01-2023 End: 06-01-2023 ambulatory Kalyan Guzman Facility:[facility] Start: 06-01-2023 End: 06-01-2023 Admission to same day surgery center DO Vince Villegas Work Phone: [facility] Work Phone: Start: 06-01-2023 End: 06-01-2023 ambulatory DO Vince Villegas Work Phone: [facility] Work Phone: Start: 05-25-2023 End: 05-25-2023 ambulatory Vince Villegas Other [employer] Other Start: 05-25-2023 Telephone encounter Vince Villegas [facility] Start: 05-13-2023 End: 05-13-2023 ambulatory Vince Villegas Other [employer] Other Start: 05-13-2023 Office outpatient visit 15 minutes Vince Villegas [facility] Start: 04-07-2023 End: 04-07-2023 ambulatory Kalyan Guzman Other [employer] Other Start: 04-07-2023 Telephone encounter 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 Performed By: #### D IFF CBC, CEA, CMP #### [address] Start: 06-01-2023 Screening colonoscopy D O Vince Villegas Work Phone: Plan of Treatment Date Care Activity Detail Author Start: 07-25-2025 End: 07-25-2025 Patient encounter procedure 07/25/2025 1:00 PM EDT Office Visit [facility] [address] [place] [address] Sabine Christian, SENIOR FRONT END ENGINEER-AUTO PARKER [address] [place] [address] [facility] Start: 09-08-2024 End: 09-08-2024 Patient encounter procedure 09/08/2024 4:20 PM EST Office Visit [facility] [place] [address] [place] [address] Christine Prieto, SORAIDA [address] [place], [place] [facility] [place] [address] Start: 07-25-2024 End: 07-25-2024 Patient encounter procedure [facility] Comment on above: Arrived Start: 07-21-2024 End: 07-21-2024 Patient encounter procedure 07/21/2024 12:15 PM EDT Office Visit [facility] [place] [address] [place] [address] Staci Collazo, DO [address] [place] [address] Arrived [facility] [place] [address] Comment on above: Arrived Start: 06-19-2024 Influenza vaccination Influenza Vacc ine (#1) [facility] Start: 06-24-2023 Pneumococcal Vaccine : 65+ Years (3 of 3 - PPSV23 or PCV20) Pneumococcal Vaccine: 65+ Years (3 of 3 - PPSV23 or PCV20) [facility] Start: 06-01-2023 End: 06-01-2023 [facility] Start: 1995 Screening for malign ant neoplasm of breast Mammogram [facility] Start: 1955 Screening for malign ant neoplasm of colon [facility] Patient Education Colon polyps H emorrhoids (DC) Diverticulosis (DC) [facility] Work Phone: Immunizations Immunization Date Immunization Notes Care Provider Fa cility 10-05-2021 COVID-19 Vaccine Pfi zer - Documentation Purposes Only Kalyan Guzman Other [employer] Other 04-04-2021 COVID-19 Vaccine Pfi zer - Documentation Purposes Only Kalyan Guzman Other [employer] Other 03-14-2021 COVID-19 Vaccine Pfi zer - Documentation Purposes Only Kalyan Guzman Other [employer] Other 06-24-2018 pneumococcal polysaccharide vaccine, 23 valent Kalyan Guzman Other [facility] 02-01-2018 pneumococcal conjuga te vaccine, 13 dalila Biggs Rosieingris Other [employer] Other Payers Date Payer Category Payer Medicare MEDICARE MEDICAR E PART B [id number] 2021-[place] [address] [place] [address] Medicare [id number] 2021 Unknown [employer]ICAL [employer] M [employer]ICAL M[employer]UAL [id number] 2021-Present [address] [place] [address] [id number] 1959 Medicare [id number] 1959 Self-pay [id number] 1959 Unknown [id number] 1955 Unknown [id number] 1955 Unknown [id number] [id number]3 1955 Unknown [id number] [id number]3 1955 Unknown [id number] 2.16.840.1.912090.3.579.2.1259 1955 Unknown [id number] 2.16.840.1.027319.3.579.2.1259 1955 Unknown [id number] 2.16.840.1.585121.3.579.2.1259 1955 Unknown [id number] 2.16.840.1.602389.3.579.2.1259 1955 Unknown [id number] 2.16.840.1.009072.3.579.2.1259 1955 Unknown [id number] 2.16.840.1.650549.3.579.2.1259 1955 Unknown [id number] 2.16.840.1.060862.3.579.2.1259 1956 Unknown [id number] 2.16.840.1.176570.3.579.2.1259 1955 Unknown [id number] 2.16.840.1.220447.3.579.2.1259 1955 Unknown [id number] 2.16.840.1.901053.3.579.2.1259 Medicaid [id number] Unknown [id number] [id number] Unknown [id number] [id number] Social History Date Type Detail Facility Tobacco smoking stat us [facility] Unknown if ever smoked [facility] Start: 1955 Sex Assigned At Female F [facility] Start: 06-16-2023 End: 07-21-2024 Sex Assigned At [facility] Other Start: 06-01-2023 End: 06-16-2023 Tobacco smoking status NHIS Never smoked tobacco (finding) [facility] Start: 06-16-2023 Tobacco use and exposure Smokeless tobacco non-user [facility] Start: 06-16-2023 End: 07-25-2024 Alcoholic beverage intake Current drinker of alcohol (finding) [facility] Start: 06-16-2023 End: 07-21-2024 History of Social function [facility] Start: 06-16-2023 Gender identity Identifies as female gender (finding) [facility] Goals Date Patient Goal Desired Activity /State Clinical Notes 12-17-2021 to 07-25-2024 Sabine Christian, KIM-AUTO PARKER - 07/25/2024 9:55 AM EDTDamirkayce Collazo DO - 07/21/2024 12:15 PM EDT Note Date & Type Note Facility 07-25-2024 History of Presen t illness Narrative Skin Check Location: Patient requests a full body skin examination Dermatologic history: no history of skin cancer, no history of atypical moles, no family history of melanoma Lesions: Location: left lower leg Duration: long time Quality: denies pain, denies itch Modifying factors: aggravated by picking Associated symptoms: non-healing Treatments: none Lesion # 2: Location: left lower leg and right 1st digit Duration: three months Quality: denies pain, denies itch Modifying factors: aggravated by picking Associated symptoms: non-healing Treatments: none New patient All pertinent medical history, medications, and allergies were reviewed. General Exam: alert, oriented to person, place, and time, normal affect, well appearing Unaccompanied Scalp, Examined , exam limited by hair Right leg Examined Head, Face Examined Left leg Examined Neck Examined Right foot Examined Chest Examined Left foot Examined Back Examined Buttocks Examined Abdomen Examined Digits,nails: Examined Right arm Examined Denies dark streaks under finger nails, Denies dark streaks on toenails Left arm Examined Lymphatics: Not examined Hands Examined 1. Seborrheic keratosis (2) Legs, Trunk Stuck on verrucous, variably pigmented papules and plaques. Patient was counseled regarding these benign growths. Removal is normally not necessary, but they may be removed if they are symptomatic or for cosmetic reasons. 2. Melanocytic nevus of trunk Mid Back Scattered benign appearing, regular brown to light brown melanocytic papules and macules with similar morphology Counseled regarding these benign growths. Rarely, a nevus can develop into malignant melanoma, so any changing nevi should be promptly re-evaluated. 3. Sebaceous hyperplasia of face Head - Anterior (Face) Small yellow papules with a central dell. Reassure, benign. Discussed these can be removed for a cosmetic fee with the hyfrecator if desired. 4. Capillary angioma Trunk Scattered willoughby-red papule(s). The patient was informed that angiomas are benign growths on the the skin. No treatment is necessary. 5. Other atopic dermatitis Ankles Scaly erythematous plaques +/- dyspigmentation, lichenification, excoriations. Flaring today Discussed that atopic dermatitis is a chronic condition that can be controlled but not cured. Start TAC 0.01% cream bid prn when flared, hold if smooth/asymptomatic. Encouraged daily moisturizing and gentle cleansers to prevent flares. Recommended CereVe moisturizing cream and Dove sensitive soap body wash. Notify office if flaring despite treatment. triamcinolone (Kenalog) 0.1 % cream - Ankles Apply to affected areas, up to twice a day when flared, do not use one the face, groin, or underarms, 30 day supply Next Visit: 1 year, skin check documented in this encounter [facility] 07-21-2024 History of Presen t illness Narrative Images from the original note were not included. No chief complaint on file. Subjective Renetta Atwood, 68 y.o., female being seen in Neurology consultation at the request of Dr. Villegas. Numbness and tingling, blurred vision, headaches, facial pain, unsteadiness - CT brain, labs @ [facility]; referral received from Dr Vince Villegas, DO This started about 1+ years ago. She will feel like one of her pupils is dilated and the other is not, She states that her vision gets blurry and she has a hard time seeing. She cannot tell in the mirror if one is bigger than the other. It will last 10-15 minutes. Her foot in the morning will get stuck up like a cramp but different than a alton horse. She states that all of her symptoms come and go. She has numbness and tingling in her toes and fingertips. When she is in bed at night her left foot will curl up and she has to use her hand to release it. She states the toes on her right foot will curl under which also comes and goes. If she has shoes on it does not happened but with flip flops on it does. She states that she has a dull headache almost daily. They are all day long. She does not wake up with it but it comes on a little later. The pain is located in the top of her head. She had pain under her left eye socket, denies injury, and this resolved on its own. She will get vision changes at times that she describes a seeing a heat wave. The patient states that she loses her balance if she turn quickly. She denies any falls and denies spinning. She states that if she tries to stand up straight she is unable tot balance. She has a choclear implant and has imbalance from that but it has become worse in the last 8 months. She states that she has slurred speech and is having difficulty with word finding. She denies any head injuries. She goes to bed from 11pm-3 am, She gets up around 7-8:30 She has 4-5 days a week that she is up late. She may do a 30 minute power nap. She had a HST that showed she has SUNIL. She has an apt for the titration study. She does not remember the AHI. She is onlyt getting 4-5 hours of sleep Past Medical History: Diagnosis Date Chickenpox in childhood Diverticulitis H/O degenerative disc disease lumbar and cervical Headache Hearing impaired Hormone imbalance - low progesterone Hypothyroid (CMS/HCC) Vertigo Past Surgical History: Procedure Laterality Date BUNIONECTOMY Left 08/[address] Asad Rocha [phone] COLONOSCOPY 12/2015 Dr Fortunato Aquino [facility] [phone] COLONOSCOPY 06/01/2023 EXCISION 01/2017 Excision sebaceous cyst left breast Dr Fortunato Aquino [phone] LAMINECTOMY 03/1989 L5 - Dr Asad Carcamo [phone] LAMINECTOMY Bilateral 08/2015 L4 -Dr Asad Carcamo LASIK OU DE BREAST REDUCTION 10/2015 Dr Carlitos Blood [phone] DE LIGATN LONG SAPHENOUS VEIN AT SEPH-FEM JUNC 09/2013 Long Saphenous venin stripped right leg - Dr Drake Ballard [phone] DE RELEASE OF BIG TOE TENDN 03/2016 Abductor Tear Repair left Hip Dr Benjamin Anthony [phone] VAGINAL HYSTERECTOMY W/ ANTERIOR AND POSTERIOR VAGINAL REPAIR Family History Problem Relation Name Age of Onset Breast cancer Mother COPD Mother Diabetes type II Mother No Known Problems Father Osteoporosis Sister Hypothyroidism Sister Crohn's disease Brother youngest brother Social History Tobacco Use Smoking status: Never Smokeless tobacco: Never Substance Use Topics Alcohol use: Yes Allergies: Oxycodone and Wound dressing adhesive General: No fever or chills HEENT: No nasal congestion or runny nose Pulmonary: No shortness of breath or cough Cardiovascular: No chest pain or palpitations GI: No nausea or vomiting : No dysuria or hematuria Musculoskeletal: No new aches or pains or muscle weakness Infectious: no recurrent fevers or infections Dermatologic: No rashes or skin lesions Neurologic: No new headaches or dizziness Vitals: 07/21/24 1237 BP: 122/79 Pulse: 88 SpO2: 98% Body mass index is 27.63 kg/m . weight: 156 lb Neurologic exam: General: Normal body habitus, cooperative, pleasant Mental status: Awake, alert to person, place and time. Recent and remote memory are intact. Attention and concentration are normal. Fund of knowledge is appropriate for level of education. HEENT: NC/AT Cranial nerves: CN II: Visual hart full to confrontation. No loss of vision CN III, IV, : pupils equal round and reactive to light. Extraocular movements intact. No ptosis present. CN V: Facial sensation is normal. CN VII: Full and symmetric facial movement. CN VIII: Hearing is normal CN IX and X: Palate elevates symmetrically. CN XI: Shoulder shrug is normal bilaterally. CN XII: Tongue is midline without atrophy or fasciculation. Speech: Clear and fluent no aphasia or dysarthria Pronator drift: Negative bilateral upper extremity Coordination: Intact, no signs of dysmetria Good finger to nose and rapid alternating movements Sensory: Sensation is intact to light, temperature and vibratory touch throughout four extremities. Pinprick intact in all four extremities. Motor: LUE 5/5 RUE 5/5 LLE 5/5 RLE 5/5 Tone: Physiologic, no tremor, bradykinesia or rigidity DTR: Bilateral Biceps 2/4 Bilateral BR 2/4 Bilateral Patellar 2/4 No spasticity Gait: Slightly unsteady Romberg's Mildly positive Review and summary of old records: Assessment/Plan Diagnoses and all orders for this visit: Blurred vision Chronic tension-type headache, intractable SUNIL (obstructive sleep apnea) Numbness and tingling 68-year-old female with a constellation of different complaints. She complains of some blurred and obscured vision where it feels like 1 of her pupils is dilated and the other is not. She complains of a constant tension headache that is not there 1st thing in the morning but develops as the day progresses and lasts all day. She has some intermittent numbness and tingling into her fingertips and toes at times. She has some cramping in her feet at times and feels like her toes curl under. The left side occurs primarily when she is waking from sleep in the morning. She can be unsteady and off balance at times however she does have a cochlear implant and I suspect some of that is related to the vestibular issues. The patient admits that she is only sleeping about 5-6 hours at the most at night. 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 I suspect much of these nonspecific symptoms are related to sleep deprivation. The headache and blurred vision Are very common with sleep deprivation. It is unclear about the other symptoms but I would like her to get more hours of sleep and see what symptoms improve and what do not. She also has obstructive sleep apnea. She had a home sleep study and is scheduled for the titration study. She does not remember what her AHI was. However having sleep apnea (poor quality sleep) on top of sleep deprivation is likely the cause for many of her symptoms. Her PCP notes states that she was to have a CT of the head. She is not sure if she had that we will try to track it down. It would be beneficial for her to have a repeat thyroid tests and she does have hypothyroidism make sure that that is normal. We do not have results of that. We can do more testing however I would like to 1st have her improve her sleep and see how she does. Plan Try to see what happened with a CT of her head Try to find her most recent TSH Continue with the titration study through the hospital and we will see her here in the office for her SUNIL Try to get at least 7 hours if not 8 hours of sleep a night Do not rub sleep for life The patient was counseled on proper sleep hygiene and adequate hours of sleep. We will then see her back in the next 6 weeks and see what her symptoms are doing and decide what next steps in work up and treatment we need to take The diagnosis was all discussed with the patient. All questions were answered and they agreed with the treatment plan. Patient will call if there are any new issues or questions. Pt has been fully educated on their diagnosis, treatment options, follow up plan, and return instructions Return to clinic: 6 weeks documented in this encounter [facility] 06-02-2023 Evaluation note Encounter Date Diagnosis Assessment Notes May, Mass of colon (ICD-10 - K63.89) [facility] Other 08-14-2023 Procedure [facility]08-07-2023 Evaluation note* Encounter Date Diagnosis Assessment Notes Treatment Notes Treatment Clinical Notes May, Overweight (ICD-10 - E66.3) [facility] Other 07-26-2023 Evaluation note* Encounter Date Diagnosis [...] Apr, Other specified hypothyroidism (ICD-10 - E03.8) [facility] Other 05-04-2023 Evaluation note* Encounter Date Diagnosis Assessment Notes Treatment Notes Treatment Clinical Notes February, Seasonal allergic conjunctivitis (ICD-10 - H10.10) February, Seasonal allergic rhinitis due to pollen (ICD-10 - J30.1) [facility] Other 03-01-2022 NoteHNO ID: [id number] Author: PAOLO Pearl Service: ? Author Type: Branch Sales And Service Representative Type: Progress Notes Filed: 12/25/2021 2:20 PM Note Text: [facility] [place] [facility] COCHLEAR IMPLANT ADULT PROGRAMMING Name: [facility] Atwood [id number] Date of Service: December 17, 2021 Date of : 1955 Age: [age] year old COCHLEAR IMPLANT INFORMATION (see below for all device details) Updated: December 17, 2021 ? Right ear: Phonak Paoloeo B90-13 [employer] fit and managed at an outside facility ? Left ear: ? External Processor: Cochlear [employer] CA4426 (Nucleus 7)? Processor SN: [id number]? Magnet strength: 2 ? Internal Device: Cochlear CI532 Profile with Slim Modiolar Electrode Array Internal Device SN: [id number] ?Inactive electrodes: ?1-5, 22-21?(non-auditory percept; pressure) ? [...] 6; Sensitivity: 12.) after programming. See the [facility] for obtained thresholds. Speech perception testing was completed at 60 mathematics professor using recorded stimuli in the sound field at 0 degrees azimuth. NOTE: The contralateral ear was plugged and muffed or masked during testing. The following testing and results were obtained: Tlbtibsnc-Usllfjv-Vgqsfrhbu Words (CNC) Test Condition List # Phonemes [...] ASC), SNR-NR,WNR Active controls (more content not included)...[facility] Evaluation noteNo Assessments Information AvailableJ.W. [facility] CtrEvaluation noteNo InformationNort Run [employer] Other Evaluation noteNo assessment information available [facility] Work Phone: Evaluation note* Diagnosis Blurred vision Other specified visual disturbances Chronic tension-type headache, intractable Chronic tension type headache SUNIL (obstructive sleep apnea) Obstructive sleep apnea (adult) (pediatric) Numbness and tingling Disturbance of skin sensation [facility] Diagnosis Seborrheic keratosis- Primary Melanocytic nevus of trunk Benign neoplasm of skin of trunk, except scrotum Sebaceous hyperplasia of face Capillary angioma Nevus, non-neoplastic Other atopic dermatitis documented in this encounter [facility] and physical note Author Kalyan Guzman [facility] June 01, 2023 8:14am Note Date/Time June 01, 2023 8: 14am [facility] [address] [place] [address] Gastroenterology H&P Signed Patient: Renetta Atwood MR#: [id number] : 1955 Acct:[id number] Age/Sex: 67 / F Adm Date: 3 Loc: Room: Type: [facility] Attending Dr: Kalyan Guzman MD [...] Guzman MD Documented By: Kalyan Guzman MD 06/01/23812 Signed By: <Electronically signed by Kalyan Guzman MD> 06/01/23813 [facility] Work Phone: Hissdej general Narrative - Reported* Type Description Date [...] Surgical History EGD Hospitalization History SEE SURGICAL [facility] Other [facility] Narrative - Reported* Type Description Date Surgical History LUMBAR LAMINECTOMY 1988 Surgical History VAGINAL TAPING PROCEDURE 2006 Surgical History BLADDER SUSPENSION 2013 Surgical History RIGHT LOWER EXTR VEIN STRIPPING 2013 Surgical History BUNIONECTOMY LEFT FOOT Surgical History BREAST REDUCTION SURGERY 2016 Surgical History COLONOSCOPY 2016 Surgical History EGD Hospitalization History SEE SURGICAL [facility] Other History general Narrative - Reported* Type [...] Surgical History EGD Hospitalization History SEE SURGICAL [facility] Other History general Narrative - Reported* Type [...] CT abd/pelvis) 05/2023 Hospitalization History SEE SURGICAL [facility] Other History general Narrative - Reported* Type [...] 1 year) 07/2023 Hospitalization History SEE SURGICAL [facility] Other Hospital Discharge instructions Additional Instructions DISCHARGE [...] problems. -Follow up with PCP. -Office number [phone].[facility] Work Phone: Reason for visit Narrative* Consultation (Routine) - Closed Specialty Diagnoses / Procedures Referred By Contac t Referred To Contact Neurology Diagnoses Paresthesia of skin Headache, unspecified Other visual disturbances Atypical facial pain (CMS/HCC) Anesthesia of skin Unsteadiness on feet Procedures DE OFFICE/OUTPATIENT NEW LOW MDM 30 MINUTES Vince Villegas MD [address] [place] [address] Cabrera Arellano MD [address] [place] [address] Referral ID Status Reason Start Date Expiration Date V isits Requested Visits Authorized [id number] Closed Consult and Treat 06/22/2024 12/19/2024 1 1 [facility] Advance Directives Advance Directive Response Recorded Date/ [...] and content) DATE CREATED AUTHOR 06/17/2021 [facility] DATE CREATED AUTHOR AUTHOR'S ORGANIZ ATION 01/07/2022 [facility] DATE CREATED AUTHOR AUTHOR'S ORGANIZ ATION 01/24/2023 [facility] DATE CREATED AUTHOR AUTHOR'S ORGANIZ ATION 07/05/2023 [facility] DATE CREATED AUTHOR AUTHOR'S ORGANIZ ATION 07/26/2024 [facility] EPIC REASON FOR VISIT (unrecogniz ed section and content) Reason Comments Skin Check Care Teams (unrecognized sec tion and content) Team Status: Active Member Role Status Dates Vince Villegas DO Primary Care Provider Active Team Status: Inactive Member Role Status Dates Vince Villegas DO Primary Care Provider Active Kalyan Guzman MD Attending Provider Active 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 Relationship Specialty Start Date End Date Vince Villegas MD [address] [place] [address] PCP - General Internal Medicine 06/03/23 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 [facility]. provides no warranty or guarantee of the accuracy or completeness of information in this document.
[2024-10-06 09:36] LABS: Estimated GFR (African America >60 (>=60 mL/min/1.73m^2); Estimated GFR (Non-African Ame >60 (>=60 mL/min/1.73m^2)
== END 2024-10-06 09:21 | disposition home or self-care (01) ==
LOC: LAB 09:20
PROVIDERS: PCP Internal Medicine; Visit Provider Internal Medicine
DX: G44.219 Episodic tension-type headache, not intractable (principal); R20.2 Paresthesia of skin
CPT/HCPCS: 36415; 70470; 82565; Q9967

== ENCOUNTER 2024-11-14 10:24 | Outpatient (OUT) | payer MEDICARE, OTHER, SELFPAY ==
--- NOTE | 2024-11-14 10:29 | MM_ITS ---
Patient Name: RENETTA ATWOOD MR#: [id number] : 1955 Exam Date: 11/14/2024 Ordering Doctor: DR Vince Villegas D.O. RADIOLOGY REPORT PROCEDURE: MM TOMOSYNTHESIS SCREENING BI COMPARISON: MM TOMOSYNTHESIS SCREENING BI, 11/12/2023. MG MAMM SCREEN 3D BALTAZAR CAD, 11/05/2022. MG MAMM SCREEN 3D BALTAZAR CAD, 11/01/2021. MG MAMM BALTAZAR SCRN W CAD DIG, 08/23/2013. INDICATIONS: Screening Calculator Name NCI Breast Cancer Risk Assessment Tool 5 Year Breast Cancer Risk 3.30% Lifetime Breast Cancer Risk 10.40% Personal Breast Cancer No Personal Ovarian Cancer No Treatments None Family Cancers Mother with breast cancer at age 70; Grandmother-maternal with colon cancer at age 67. LOCATION: [facility] BREAST COMPOSITION: There are scattered areas of fibroglandular density. FINDINGS: DIAGNOSTIC CATEGORY 1--NEGATIVE. RIGHT BREAST: No significant suspicious finding. No significant change has occurred. LEFT BREAST: No significant suspicious finding. No significant change has occurred. RECOMMENDATIONS: ROUTINE MAMMOGRAM AND CLINICAL EVALUATION IN 12 MONTHS. PLEASE NOTE: A NORMAL MAMMOGRAM DOES NOT EXCLUDE THE POSSIBILITY OF BREAST CANCER. A CLINICALLY SUSPICIOUS PALPABLE LUMP SHOULD BE BIOPSIED. Dictated by: Cabrera Preciado M.D. on 11/14/2024 at 13:21 Approved by: Cabrera Preciado M.D. on 11/14/2024 at 14:19
--- OUTSIDE RECORDS SUMMARY | 2024-11-14 10:47 | XMS_ITS | CCD ---
Author Organization [facility] Care Team Providers Care Filling Winder Name Role Phone Kalyan Guzman Attending Provider Vince Villegas Primary Care Provider SHERYL, DR JOEL Admitting Unavailable SHERYL, DR JOEL Attending Unavailable SHERYL, DR JOEL Primary Care Unavailable BALL, DR JOEL Consulting Unavailable SHERYL, DR JOEL Admitting Unavailable SHERYL, DR JOEL Attending Unavailable SHERYL, DR JOEL Primary Care Unavailable SHERYL, DR JOEL Consulting Unavailable GERMAN, DR ALIS Ly Consulting Unavailable JAROD, DR DRAKE Nguyen Admitting Unavailable JAROD, DR DRAKE Nguyen Attending Unavailable SHERYL, DR JOEL Primary Care Unavailable JAROD, DR DRAKE Nguyen Consulting Unavailable iVnce Villegas Unavailable Kalyan Guzman Unavailable DO Vince Villegas Primary Care Provider [phone] MD Kalyan Guzman Attending Provider Kalyan Guzman Attending Unavailable Kalyan Guzman Admitting Unavailable Vince Villegas Primary Care Unavailable Vince Villegas Primary Care Unavailable Kalyan Guzman Attending Unavailable Kalyan Guzman Admitting Unavailable PORFIRIOY, FLACO Attending Unavailable SUE, ERIN P Referring Unavailable KELBLEYFLACO Attending Unavailable SUE, ERIN P Referring Unavailable KAREL CHINCHILLA Attending Unavailable JJ MOTA Referring Unavailable [facility] WRIGHT Attending Unavailable ERIN ANTHONY P Referring Unavailable PORFIRIOYFLACO Attending Unavailable SUE, ERIN P Referring Unavailable STACI COLLAZO Attending Unavailable VINCE VILLEGAS Referring Unavailable HANH WRIGHT Attending Unavailable HANH WRIGHT Attending Unavailable ERIN ANTHONY P Referring Unavailable HANH WRIGHT Attending Unavailable JJ MOTA Referring Unavailable GERALDINE CHRISTIAN Attending Unavailable Vince Villegas MD Primary Care Provider Vince Villegas DO Primary Care Provider VINCE VILLEGAS Primary Care Unavailable SARAVANAN ALCALA Attending Unavailable VINCE VILLEGAS Referring Unavailable VESNA EDA Attending Unavailable VINCE VILLEGAS Referring Unavailable VINCE VILLEGAS Primary Care Unavailable Allergies Allergy Classification Reported Allergen(s) Allergy Type Date of Onset Reaction(s) Facility (8 sources) Adhesive agent Drug allergy Unknown [facility] Other (8 sources) Adhesive Tape Drug allergy Unknown [facility] Other (9 sources) oxyCODONE; Translations: [OXYCODONE] Drug Allergy 7 Vomiting [facility] (6 sources) Wound Dressing Adhesive Drug Allergy 3 Unknown [facility] (2 sources) bandaids [Other] Propensity to adverse reactions 7 [facility] (1 source) OTHER; Translations: [OTHER] Propensity to adverse reactions (disorder) 7 [facility] Repository Medications Current Medications Medication Drug Class(es) Dates Sig (Normalized) Sig (Original) Acetaminophen / Caffeine (2 sources) Central Nervous System Stimulant, Methylxanthine ACETAMINOPHEN/CAFF EINE (EXCEDRIN TENSION HEADACHE ORAL) Take by mouth as needed. Active Cream Base No.47 (Bulk) (Base, Pcca Vanpen) cream (2 sources) Start: 02-13-2021 Cream Base No.47 (Bulk) (Base, Pcca Vanpen) cream Active 1 APPLIC TOPICAL As Directed February 13, 2021 12:00am Hormone Cream Base cream (6 sources) Start: 10-19-2017 Hormone Cream Base cream 10/19/2017 Active levothyroxine sodium 0.05 mg oral tablet (20 sources) l-Thyroxine Start: 02-13-2021 take 50 ug by mouth once daily Levothyroxine Active 50 MCG PO Daily February 13, 2021 12:00am Start: 02-25-2018 levothyroxine (SYNTHROID) 100 mcg tablet Take 100 mcg by mouth. 02/25/2018 Active take 1 capsule by [facility] once daily before breakfast levothyroxine 25 mcg cap Take 25 mcg by mouth daily before breakfast. Active take 1 tablet by once daily Levothyroxine Sodium 50 mcg TAKE 1 TABLET BY MOUTH DAILY for 30 Active phentermine hydrochloride 37.5 mg oral tablet (14 sources) Sympathomimetic Amine Anorectic Start: 04-13-2023 take 1 tablet by mouth once daily before breakfast Adipex-P 37.5 MG 1 tablet before breakfast Orally Once a day for 30 days May, Active progesterone 100 mg oral capsule (2 sources) Progesterone take 1 capsule by mouth once daily progesterone micronized 100 mg capsule Take 100 mg by mouth once daily. Active triamcinolone acetonide 1 mg/ml topical cream [...] Episodic Other ear and sense organ disorders (14 sources) Sensorineural hearing loss, bilateral; Translations: [Sensorineural hearing loss, bilateral] Onset: 7 04-09-2017 Chronic Other ear and sense organ disorders (3 sources) Cochlear prosthesis in situ; Translations: [Cochlear implant status] Onset: 8 03-29-2018 Chronic Other gastrointestinal disorders (10 sources) Dysphagia; Translations: [Dysphagia, unspecified] Episodic Other gastrointestinal disorders (2 sources) Other specified diseases of intestine; Translations: [Other specified diseases of intestine] Onset: 3 Episodic Other nervous system disorders (2 sources) [...] for malignant neoplasm of colon] Onset: 3 Unclassified (2 sources) Asymmetrical hearing loss; Translations: [Asymmetrical hearing loss of both ears] Onset: 7 01-28-2017 Viral infection (1 source) COVID-19; Translations: [COVID-19] Onset: 2 Past or Other Problems Problem Classification Problem Date Documented Da te Episodic/Chronic Conditions associated with dizziness or vertigo (2 sources) Vertigo; Translations: [Dizziness and giddiness] Onset: 02-05-2017 02-05-2017 Episodic Essential hypertension (2 sources) Benign essential hypertension; Translations: [Essential (primary) hypertension] Onset: 10-14-2007 Resolved: 10-14-2007 04-28-2024 Chronic Headache; including migraine (4 sources) Headache; Translations: [Headache] Onset: 02-05-2017 Resolved: 02-23-2018 02-23-2018 Episodic Immunizations and screening for infectious disease (4 sources) Encounter for immunization; Translations: [ENCOUNTER FOR IMMUNIZATION] Onset: 03-06-2022 Episodic Neoplasms of unspecified nature or uncertain behavior (6 sources) Neoplasm of uncertain behavior of cecum; 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] Onset: 06-16-2023 06-16-2023 Episodic Other aftercare (2 sources) Cochlear prosthesis in situ; Translations: [Encounter for other specified surgical aftercare] Onset: 03-30-2018 03-30-2018 Episodic Other ear and sense organ disorders (2 sources) Tinnitus; Translations: [Tinnitus, unspecified ear] Onset: 04-09-2017 04-09-2017 Episodic Results Test Name Value Interpretation Reference Range Facility [facility] 11-08-2024 CNOV Office Visit (CDISMN) ---- SHARRI ATWOOD ([id number]) 1955 F Date Time Provider Department 11/08/24 1:00 PM EDA MALAGON [facility] During your visit today, we recorded the following information about you: Eda Malagon AUD 11/08/2024 3:26 PM Signed [facility] [place] [facility] COCHLEAR IMPLANT ADULT PROGRAMMING Name: Sharri Atwood [facility]#:[id number] Date of Service: 10/30/2024 Date of : 1955 Age: [age] year old COCHLEAR IMPLANT INFORMATION (see below for all device details) RIGHT ear: Phonak Audeo B90-13 [employer] and managed at an outside facility. LEFT ear: External Processor Cochlear Inklings [id number] (Nucleus 7) Processor SN [id number] Magnet Strength 2 Internal Device Cochlear CI532 Profile with Slim Modiolar Electrode Array Internal Device SN [id number] Inactive electrodes 1-5, 22-21 (non-auditory percept; pressure) Surgery Date 03/01/2018 Initial activation date 03/30/2018 Surgeon Hope Velasco M.D. Accessories: Remote Control Mini Microphone 2+ Phone Clip Aqua+ Kit HISTORY: Sharri Atwood was seen for troubleshooting of the left device. The patient reported: * Pain (9/10) at magnet site; gradually worsened over the post 9 months. She stated she has not been wearing her implant when she is at home due to pain. She endorsed redness at the magnet site for the past couple months. Denied itchiness, but endorsed possible intermittent swelling. * Gradually worsened balance issues over the last year. She stated that this is worse in the dark/ low light. No falls within the past year. * Patient reported gradually increased difficulty hearing (possibly from both ears) for a while now. * Previous audiologic evaluation at [facility] on 03/29/2018 was most recent hearing evaluation. She indicated that she has not seen her hearing aid claim representative for programming since 2016. * Microphone covers last changed in early August 2024. * Last Otology visit date: 03/29/2018 * Problems noted with the equipment: recently attempted to replace coil, but spare coil was corroded and when placed on the processor sound was intermittent. She stated that she reached out to [employer] and they sent her a new coil. AIDED AUDIOMETRIC TESTING: Deferred as state of magnet site required medical evaluation and cochlear implant non-use was recommended. COCHLEAR IMPLANT PROGRAMMING/TROUBLE SHOOTING: Troubleshooting: Magnet changed from a 2 to a 1 (from stock) with soft pad added. Patient was given a supply of soft pads and counseled on moleskin as a secondary option. LEFT Programming: Magnet site was checked with significant redness and skin irritation visualized (see pictures associated with today's visit in scanned docs) Patient was added on same-day to be seen by Saravanan Alcala MD. No programming changes made today. The function/use of the programs are listed below: (no changes from previous) Left Ear Program/Map # Program Feature 1 18 SCAN (ADRO + ASC), SNR-NR,WNR Active controls include: volume. SUMMARY AND RECOMMENDATIONS: Counseling Points: * Recommend patient discontinue use of left cochlear implant until medical follow up with Drake Rivas PA-C on 11/16/2024. * Recommend patient pursue an updated audiologic evaluation due to overall increased difficulty hearing. * Following updated hearing evaluation, recommend patient return for a hearing aid check with instructor robotics for maintenance and potential programming needs. * Continue to monitor magnet/incision site for pain, redness, swelling, scabbing etc. Should status of magnet site worsen contact the office immediately. * Continue use of hearing aid only during all waking hours until medically cleared for CI use. Follow-up Programming: It was recommended that the patient return following medical clearance for cochlear implant use for monitoring of auditory performance and potential programming needs. The center should be contacted if there are problems or concerns before that time. NOTE: It should be noted that the patient left the appointment with all the equipment. None of the patient's equipment was left in the Audiology Section of the Clinic. TOTAL TIME: 60 minutes Rob Santa, GENNARO/A copied to: Drake Rivas PA-C. Referring Provider: VINCE VILLEGAS [[id number]] Allergies As of Date: 11/08/2024 Noted Allergy Reaction bandaids [Other] 08/27/2007 OXYCODONE 10/11/2007 11 - Vomiting Date Reviewed: 07/04/2020 Reviewed by: Malik Higuera - Fully Assessed Reason for Visit: Hearing Loss [1119] Primary Visit Diagnosis:Sensorine ural hearing loss (SNHL), bilateral [H90.3] Other Visit Diagnosis:Cochlear implant in place [Z96.21] Prescriptions as of 11/08/2024 - mupirocin (BACTROBAN) 2 % ointment Apply to affected area two times a day. - ceph (more content not included)... Normal [facility] CNPMichelle 10-25-2024 CNPN Telephone (OTOLIN) ---- SHARRI ATWOOD ([id number]) 1955 F Date Time Provider Department 10/25/24 DRAKE RIVAS During your visit today, we recorded the following information about you: Tiffanie Cheung 10/25/2024 3:11 PM Signed Patient returned your call and can be reached at: Call patient at: on cell [phone] (home) [phone] (cell) Claus Nicholson, RN 10/25/2024 3:27 PM Signed PSS: see the FYI tab and call patient. Mery Mcgowan 10/26/2024 11:17 AM Signed Patient scheduled 11/[address] [facility] for the cochlear and PSS explained that Drake Rivas appointment has needed to get established. Allergies As of Date: 10/25/2024 Noted Allergy Reaction bandaids [Other] 08/27/2007 OXYCODONE 10/11/2007 11 - Vomiting Date Reviewed: 07/04/2020 Reviewed by: Malik Higuera - Fully Assessed Reason for Visit: Patient Question [7247] Prescriptions as of 10/26/2024 - levothyroxine 25 mcg cap Take 25 mcg by mouth daily before breakfast. - levothyroxine (SYNTHROID) 100 mcg tablet Take 100 mcg by mouth. - ACETAMINOPHEN/CAFFE INE (EXCEDRIN TENSION HEADACHE ORAL) Take by mouth as needed. - progesterone micronized 100 mg capsule Take 100 mg by mouth once daily. Problem List As Of Date 10/25/2024 Noted Resolved BENIGN HYPERTENSION [I10] 10/14/2007 10/14/2007 Asymmetrical hearing loss of both ears [OMD4892]01/28/2017 Vertigo [R42] 02/05/2017 Headache [R51.9] 02/05/2017 Headache(784.0) [R51] 02/16/2017 02/23/2018 Sensorineural hearing loss, bilateral [H90.3] 04/09/2017 Tinnitus [H93.19] 04/09/2017 Bilateral sensorineural hearing loss [H90.3] 12/24/2017 Hypothyroidism [E03.9] Cochlear implant in place [Z96.21] 03/29/2018 Cochlear implant follow-up [Z48.89, Z96.21] 03/30/2018 Encounter Status:Closed by MERY MCGOWAN on 10/26/24 Normal [facility] CT abdomen pelvis w conon CT abdomen pelvis w [facility] [place] [address] CT Scan Report Signed Patient: Sharri Atwood MR#: [id number] : 1955 Acct:[id number] Age/Sex: 67 / F ADM Date: 06/24/23 Loc: CT Room: Type: [facility] Attending Dr: Kalyan Guzman MD Copies [...] recommended. Impression dictated by: Michael Keenan Jr., DReneeORenee06/24/2023 2:20 PM Dictation Location: [place] [address] Transcribed By: [facility] 06/24/23 1420 Dictated By: Michael Keenan Jr, DO 06/24/23 1418 Signed By: 06/24/23 1420 Normal [facility] Alanine aminotransferase [En zymatic activity/volume] in Serum or PlasmaOrdered By: Kalyan Guzman on 06-01-2023 ALT [Catalytic activity/Vol] 9 U/L 7-52 [facility] Albumin [Mass/volume] in Ser um or Plasma by Bromocresol green (BCG) dye binding methoOrdered By: Kalyan Guzman on 06-01-2023 Albumin BCG dye [Mass/Vol] 4.4 g/dL 3.5-5.7 [facility] Alkaline phosphatase [Enzyma tic activity/volume] in Serum or PlasmaOrdered By: Kalyan Guzman on 06-01-2023 ALP [Catalytic activity/Vol] 72 U/L 34-104 [facility] Aspartate aminotransferase [ Enzymatic activity/volume] in Serum or PlasmaOrdered By: Kalyan Guzman on 06-01-2023 AST [Catalytic activity/Vol] 22 U/L 13-39 [facility] Band form neutrophils/100 WB C Manual cnt (Bld)Ordered By: Kalyan Guzman on 06-01-2023 Band form neutrophils/100 WBC (Bld) 2 % 0-5 [facility] Basophils Auto (Bld) [#/Vol] Ordered By: Kalyan Guzman on 06-01-2023 Basophils (Bld) [#/Vol] N/A [facility] Basophils/100 WBC Auto (Bld) Ordered By: Kalyan Guzman on 06-01-2023 Basophils/100 WBC (Bld) N/A [facility] Basophils/100 WBC Manual cnt (Bld)Ordered By: Kalyan Guzman on 06-01-2023 Basophils/100 WBC (Bld) 1 % 0-2 [facility] Bilirubin.total [Mass/volume ] in Serum or PlasmaOrdered By: Kalyan Guzman on 06-01-2023 Bilirubin [Mass/Vol] 0.9 mg/dL 0.3-1.0 [facility] Calcium [Mass/volume] in Ser um or PlasmaOrdered By: Kalyan Guzman on 06-01-2023 Calcium [Mass/Vol] 9.4 mg/dL 8.6-10.3 [facility] Carbon dioxide, total [Moles /volume] in Serum or PlasmaOrdered By: Kalyan Guzman on 06-01-2023 CO2 [Moles/Vol] 25.2 mmol/L 21.0-31.0 [facility] Chloride [Moles/volume] in S javier or PlasmaOrdered By: Kalyan Guzman on 06-01-2023 Chloride [Moles/Vol] 108 mmol/L 98-107 [facility] Comprehensive Metabolic Pane luis enrique 06-01-2023 Albumin [Mass/Vol] 4.4 g/dL Normal 3.5-5.7 [facility] Comment on above: Performed By: #### D IFF CBC, CEA, CMP #### [facility] [address] [place] [address] [place] Albumin/Globulin [Mass ratio] 1.6 {ratio} Normal [facility] Comment on above: Performed By: #### D IFF CBC, CEA, CMP #### [facility] [address] ALP [Catalytic activity/Vol] 72 U/L Normal 34-104 [facility] Comment on above: Performed By: #### D IFF CBC, CEA, CMP #### [facility] [address] ALT [Catalytic activity/Vol] 9 U/L Normal 7-52 [facility] Comment on above: Performed By: #### D IFF CBC, CEA, CMP #### [facility] [address] Anion gap [Moles/Vol] 10.9 mmol/L Normal 6.0-15.0 [facility] Comment on above: Performed By: #### D IFF CBC, CEA, CMP #### [facility] [address] [place] [address] [place] AST [Catalytic activity/Vol] 22 U/L Normal 13-39 [facility] Comment on above: Performed By: #### D IFF CBC, CEA, CMP #### [facility] [address] [place] [address] [place] Bilirubin [Mass/Vol] 0.9 mg/dL Normal 0.3-1.0 [facility] Comment on above: Performed By: #### D IFF CBC, CEA, CMP #### [facility] [address] [place] [address] [place] Calcium [Mass/Vol] 9.4 mg/dL Normal 8.6-10.3 [facility] Comment on above: Performed By: #### D IFF CBC, CEA, CMP #### [facility] [address] [place] [address] [place] Chloride [Moles/Vol] 108 mmol/L High 98-107 [facility] Comment on above: Performed By: #### D IFF CBC, CEA, CMP #### [facility] [address] CO2 [Moles/Vol] 25.2 mmol/L Normal 21.0-31.0 [facility] Comment on above: Performed By: #### D IFF CBC, CEA, CMP #### [facility] [address] Creatinine [Mass/Vol] 0.72 mg/dL Normal 0.60-1.20 [facility] Comment on above: Performed By: #### D IFF CBC, CEA, CMP #### [facility] [address] Creatinine Clr Calc Pharmacy 68.33 [facility] Comment on above: Result Comment: PERF ORMED BY: [place] [address] PATHOLOGIST BISQUE KILN PLACER ESTEE KAPOOR M.D. Performed By: #### D IFF CBC, CEA, CMP #### [facility] [address] [place] [address] [place] GFR/1.73 sq M.predicted MDRD (S/P/Bld) [Vol rate/Area] mL/min/{1.73_m2} [facility] Comment on above: Performed By: #### D IFF CBC, CEA, CMP #### [facility] [address] [place] [address] [place] Globulin (S) [Mass/Vol] 2.7 g/dL Normal [facility] Comment on above: Performed By: #### D IFF CBC, CEA, CMP #### [facility] [address] Glucose [Mass/Vol] 89 mg/dL Normal 70-100 [facility] Comment on above: Result Comment: [place] Glucose Reference Range is dependent on time and content of last meal. Glucose of more than 200 mg/dL in a nonstressed, ambulatory subject supports the diagnosis of Diabetes Mellitus. ADA recommended reference range Performed By: #### D IFF CBC, CEA, CMP #### [facility] [address] [place] [address] [place] Potassium [Moles/Vol] 4.1 mmol/L Normal 3.5-5.1 [facility] Comment on above: Performed By: #### D IFF CBC, CEA, CMP #### [facility] [address] Protein [Mass/Vol] 7.1 g/dL Normal 6.4-8.9 [facility] Comment on above: Performed By: #### D IFF CBC, CEA, CMP #### [facility] [address] [place] [address] [place] Sodium [Moles/Vol] 140 mmol/L Normal 136-145 [facility] Comment on above: Performed By: #### D IFF CBC, CEA, CMP #### [facility] [address] [place] [address] [place] Urea nitrogen [Mass/Vol] 14 mg/dL Normal 7-25 [facility] Comment on above: Performed By: #### D IFF CBC, CEA, CMP #### [facility] [address] [place] [address] [place] Creatinine [Mass/volume] in Serum or PlasmaOrdered By: Kalyan Guzman on 06-01-2023 Creatinine [Mass/Vol] 0.72 mg/dL 0.60-1.20 [facility] Diff and CBCon 06-01-2023 Band form neutrophils/100 WBC (Bld) 2 % Normal 0-5 [facility] Comment on above: Performed By: #### D IFF CBC, CEA, CMP #### [facility] [address] [place] [id number] [place] Basophils/100 WBC (Bld) 1 % Normal 0-2 [facility] Comment on above: Performed By: #### D IFF CBC, CEA, CMP #### [facility] [address] [place] [id number] [place] Eosinophils/100 WBC (Bld) 1 % Normal 1-3 [facility] Comment on above: Performed By: #### D IFF CBC, CEA, CMP #### [facility] [address] Erythrocyte distribution width (RBC) [Ratio] 13.8 % Normal 11.9-15.3 [facility] Comment on above: Performed By: #### D IFF CBC, CEA, CMP #### [facility] [address] Hematocrit (Bld) [Volume fraction] 42.6 % Normal 34.0-46.4 [facility] Comment on above: Performed By: #### D IFF CBC, CEA, CMP #### [address] Hemoglobin (Bld) [Mass/Vol] 13.9 g/dL Normal 11.8-15.4 [facility] Comment on above: Performed By: #### D IFF CBC, CEA, CMP #### [address] Lymphocytes/100 WBC (Bld) 22 % Normal 18-42 [facility] Comment on above: Performed By: #### D IFF CBC, CEA, CMP #### [address] MCH (RBC) [Entitic mass] 29.2 pg Normal 24.7-34.3 [facility] Comment on above: Performed By: #### D IFF CBC, CEA, CMP #### [facility] [address] [place] [address] MCV (RBC) [Entitic vol] 89.2 fL Normal 80-100 [facility] Comment on above: Performed By: #### D IFF CBC, CEA, CMP #### [facility] [address] [place] [address] Mean Corpuscular HGB Conc 32.8 g/dL Normal 32.0-35.0 [facility] Comment on above: Performed By: #### D IFF CBC, CEA, CMP #### [facility] [address] [place] [address] Monocytes/100 WBC (Bld) 20 % High 2-11 [facility] Comment on above: Performed By: #### D IFF CBC, CEA, CMP #### [facility] [address] Platelet Estimate Normal Normal Normal [facility] Comment on above: Performed By: #### D IFF CBC, CEA, CMP #### [facility] [address] Platelet mean volume (Bld) [Entitic vol] 7.8 fL Normal 6.3-10.7 [facility] Comment on above: Performed By: #### D IFF CBC, CEA, CMP #### [facility] [address] Platelet Morphology Normal Normal Normal [facility] Comment on above: Result Comment: PERF ORMED BY: [place] [address] PATHOLOGIST BISQUE KILN PLACER ESTEE KAPOOR M.D. Performed By: #### D IFF CBC, CEA, CMP #### [facility] [address] Platelets (Bld) [#/Vol] 157 10*3/uL Normal 150-450 [facility] Comment on above: Performed By: #### D IFF CBC, CEA, CMP #### [address] RBC (Bld) [#/Vol] 4.77 10*6/uL Normal 3.60-5.00 [facility] Comment on above: Performed By: #### D IFF CBC, CEA, CMP #### [facility] [address] RBC morphology finding Nom (Bld) Normal Normal Normal [facility] Comment on above: Performed By: #### D IFF CBC, CEA, CMP #### [facility] [address] Segmented neutrophils/100 WBC (Bld) 54 % Normal 50-70 [facility] Comment on above: Performed By: #### D IFF CBC, CEA, CMP #### [facility] [address] WBC (Bld) [#/Vol] 4.9 10*3/uL Normal 3.8-11.6 [facility] Comment on above: Performed By: #### D IFF CBC, CEA, CMP #### [facility] [address] Eosinophils Auto (Bld) [#/Vo l]Ordered By: Kalyan Guzman on 06-01-2023 Eosinophils (Bld) [#/Vol] N/A [facility] Eosinophils/100 WBC Auto (Bl d)Ordered By: Kalyan Guzman on 06-01-2023 Eosinophils/100 WBC (Bld) N/A [facility] Eosinophils/100 WBC Manual c nt (Bld)Ordered By: Kalyan Guzman on 06-01-2023 Eosinophils/100 WBC (Bld) 1 % 1-3 [facility] Erythrocyte distribution wid th Auto (RBC) [Ratio]Ordered By: Kalyan Guzman on 06-01-2023 Erythrocyte distribution width (RBC) [Ratio] 13.8 % 11.9-15.3 [facility] Globulin Calc (S) [Mass/Vol] Ordered By: Kalyan Guzman on 06-01-2023 Globulin (S) [Mass/Vol] 2.7 g/dL [facility] Glucose [Mass/volume] in Ser um or PlasmaOrdered By: Kalyan Guzman on 06-01-2023 Glucose [Mass/Vol] 89 mg/dL 70-100 [facility] Comment on above: ADA recommended refe rence rangeRandom Glucose Reference Range is dependent on time and content of last meal. Glucose of more than 200 mg/dL in a nonstressed, ambulatory subject supports the diagnosis of Diabetes Mellitus. Hematocrit Auto (Bld) [Volum e fraction]Ordered By: Kalyan Guzman on 06-01-2023 Hematocrit (Bld) [Volume fraction] 42.6 % 34.0-46.4 [facility] Hemoglobin [Mass/volume] in BloodOrdered By: Kalyan Guzman on 06-01-2023 Hemoglobin (Bld) [Mass/Vol] 13.9 g/dL 11.8-15.4 [facility] Luis Enrique 06-01-2023 L Specimen: [id number] Received: 06/01/23 Status: DERRELL Batista Num: [id number] Spec Type: Surgical Subm Dr: Kalyan Guzman MD Tissues: A Colon Biopsy (TRANSVERSE POLYP) B Colon Biopsy (DESCENDING POLYP) Procedures: HE/Ugo Willson/Fiorella L4/2 Age/ Patient Sex Location Account Attending Physician Sharri Atwood 67/F [id number] Kalyan Guzman MD SPEC NUM: [id number] RECD: 06/01/23 STATUS: DERRELL BATISTA NUM: [id number] TONYA: 06/01/23 DR: Kalyan Guzman MD ENTERED: 06/01/[address] [facility] [address]: SPEC TYPE: Surgical DEPT: S ORDERED: [...] submitted in one cassette labeled B1. Specimen: [id number] Received: 06/01/23 Status: DERRELL Batista Num: [id number] Spec Type: Surgical Subm Dr: Kalyan Guzman MD Tissues: A Colon Biopsy (TRANSVERSE POLYP) B Colon Biopsy (DESCENDING POLYP) Procedures: HE/4, Gross/Micro L4/2 Patient: Sharri Atwood [id number] (Continued) Specimen: [id number] Received: 06/01/23 (Continued) Signed (signatur e on file) Mike Chen MD 06/03/23 0952 Specimen: [id number] Received: 06/01/23 Status: DERRELL Batista Num: [id number] Spec Type: Surgical Subm Dr: Kalyan Guzman MD Tissues: A Colon Biopsy (TRANSVERSE POLYP) B Colon Biopsy (DESCENDING POLYP) Procedures: Ugo JESSICA/Fiorella L4/2 Patient: Sharri Atwood [id number] (Continued) Specimen: [id number] Received: 06/01/23 (Continued) Microscopic Description A. Two H E slides reviewed. The microscopic examination confirms the diagnosis. B. Two H E slides reviewed. The microscopic examination confirms the diagnosis. CPT Codes 52992d two Specimen: [id number] Received: 06/01/23 Status: DERRELL Batista Num: [id number] Spec Type: Surgical Subm Dr: Kalyan Guzman MD Tissues: A Colon Biopsy (TRANSVERSE POLYP) B Colon Biopsy (DESCENDING POLYP) Procedures: HE/Demetris, Gross/Micro L4/2 Patient: Sharri Atwood [id number] (Continued) Signed (signatur e on file) Mike Chen MD 06/03/23 0952 Normal [facility] Leukocytes [#/volume] correc rajesh for nucleated erythrocytes in Blood by Automated counOrdered By: Kalyan Guzman on 06-01-2023 WBC corrected for nucl RBC Auto (Bld) [#/Vol] 4.9 10*3/uL 3.8-11.6 [facility] Lymphocytes Auto (Bld) [#/Vo l]Ordered By: Kalyan Guzman on 06-01-2023 Lymphocytes (Bld) [#/Vol] N/A [facility] Lymphocytes/100 WBC Auto (Bl d)Ordered By: Kalyan Guzman on 06-01-2023 Lymphocytes/100 WBC (Bld) N/A [facility] Lymphocytes/100 WBC Manual c nt (Bld)Ordered By: Kalyan Guzman on 06-01-2023 Lymphocytes/100 WBC (Bld) 22 % 18-42 [facility] MCH Auto (RBC) [Entitic mass ]Ordered By: Kalyan Guzman on 06-01-2023 MCH (RBC) [Entitic mass] 29.2 pg 24.7-34.3 [facility] MCHC Auto (RBC) [Mass/Vol]Or dered By: Kalyan Guzman on 06-01-2023 MCHC (RBC) [Mass/Vol] 32.8 g/dL 32.0-35.0 [facility] MCV Auto (RBC) [Entitic vol] Ordered By: Kalyan Guzman on 06-01-2023 MCV (RBC) [Entitic vol] 89.2 fL 80-100 [facility] Monocytes Auto (Bld) [#/Vol] Ordered By: Kalyan Guzman on 06-01-2023 Monocytes (Bld) [#/Vol] N/A [facility] Monocytes/100 WBC Auto (Bld) Ordered By: Kalyan Guzman on 06-01-2023 Monocytes/100 WBC (Bld) N/A [facility] Monocytes/100 WBC Manual cnt (Bld)Ordered By: Kalyan Guzman on 06-01-2023 Monocytes/100 WBC (Bld) 20 % 2-11 [facility] Neutrophils Auto (Bld) [#/Vo l]Ordered By: Kalyan Guzman on 06-01-2023 Neutrophils (Bld) [#/Vol] N/A [facility] Neutrophils/100 WBC Auto (Bl d)Ordered By: Kalyan Guzman on 06-01-2023 Neutrophils/100 WBC (Bld) N/A [facility] No Panel InformationOrdered By: Kalyan Guzman on 06-01-2023 Estimated GFR (CKD-EPI) > 60.0 mL/Min [facility] Creatinine Clearance (Chem 68.33 [facility] Nucleated erythrocytes [Pres ence] in Blood by Automated countOrdered By: Kalyan Guzman on 06-01-2023 Nucleated RBC Auto Ql (Bld) N/A [facility] Platelet adequacy [Presence] in Blood by Light microscopyOrdered By: Kalyan Guzman on 06-01-2023 Platelets LM Ql (Bld) Normal Normal [facility] Platelet mean volume Auto (B ld) [Entitic vol]Ordered By: Kalyan Guzman on 06-01-2023 Platelet mean volume (Bld) [Entitic vol] 7.8 fL 6.3-10.7 [facility] Platelet morphology finding [Identifier] in BloodOrdered By: Kalyan Guzman on 06-01-2023 Platelet morphology finding Nom (Bld) Normal Normal [facility] Platelets Auto (Bld) [#/Vol] Ordered By: Kalyan Guzman on 06-01-2023 Platelets (Bld) [#/Vol] 157 10*3/uL 150-450 [facility] Potassium [Moles/volume] in Serum or PlasmaOrdered By: Kalyan Guzman on 06-01-2023 Potassium [Moles/Vol] 4.1 mmol/L 3.5-5.1 [facility] Protein [Mass/volume] in Ser um or PlasmaOrdered By: Kalyan Guzman on 06-01-2023 Protein [Mass/Vol] 7.1 g/dL 6.4-8.9 [facility] RBC Auto (Bld) [#/Vol]Ordere d By: Kalyan Guzman on 06-01-2023 RBC (Bld) [#/Vol] 4.77 10*6/uL 3.60-5.00 [facility] RBC morphologyOrdered By: Barbi Guzman on 06-01-2023 RBC morphology finding Nom (Bld) Normal Normal [facility] Segmented neutrophils/100 WB C Manual cnt (Bld)Ordered By: Kalyan Guzman on 06-01-2023 Segmented neutrophils/100 WBC (Bld) 54 % 50-70 [facility] Serum or plasma albumin/glob ulin mass ratioOrdered By: Kalyan Guzman on 06-01-2023 Albumin/Globulin [Mass ratio] 1.6 {ratio} [facility] Serum or plasma anion gap de terminationOrdered By: Kalyan Guzman on 06-01-2023 Anion gap [Moles/Vol] 10.9 mmol/L 6.0-15.0 [facility] Serum or plasma carcinoembry onic antigen measurement (mass/volume)Ordered By: Kalyan Guzman on 06-01-2023 Carcinoembryonic Ag [Mass/Vol] 1.6 ng/mL 0.0-3.0 [facility] Sodium [Moles/volume] in Ser um or PlasmaOrdered By: Kalyan Guzman on 06-01-2023 Sodium [Moles/Vol] 140 mmol/L 136-145 [facility] Urea nitrogen [Mass/volume] in Serum or PlasmaOrdered By: Kalyan Guzman on 06-01-2023 Urea nitrogen [Mass/Vol] 14 mg/dL 7-25 [facility] WBC Auto (Bld) [#/Vol]Ordere d By: Kalyan Guzman on 06-01-2023 WBC (Bld) [#/Vol] 4.9 10*3/uL 3.8-11.6 [facility] MG MAMM SCREEN 3D BALTAZAR CADon 11-05-2022 MG MAMM SCREEN 3D BALTAZAR CAD Patient: SHARRI ATWOODRenee Exam Date: 11/05/2022 : 1955 Gender:F Ordering : DR VINCE VILLEGAS D.O. Admission #: [id number] Family : Order #: [id number] CLICK HERE TO VIEW EXAM RADIOLOGY REPORT [...] colon cancer at age 68. LOCATION: [facility] BREAST COMPOSITION: Scattered areas fibroglandular density. [...] PALPABLE LUMP SHOULD BE BIOPSIED. Dictated by: Alis Preciado M.D. on 11/05/2022 at 10:01 Approved by: Alis Preciado M.D. on 11/05/2022 at 10:05 Normal [facility] CT LOWER EXTREMITY WO CON RT on 06-17-2021 CT LOWER EXTREMITY WO CON RT STUDY: CT of the right hip without intravenous contrast dated 06/17/2021. INDICATION: RIGHT HIP PAIN COMPARISON: None. ACCESSION NUMBER(S): [id number] ORDERING CLINICIAN: Kameron Anthony TECHNIQUE: Axial CT [...] MRI is recommended for further assessment. Normal [facility] COVID-19 Positive/Negativeon 02-11-2021 SARS-CoV-2 (COVID-19) N gene MAULIK+probe Ql (Resp) Negative Negative [facility] Comment on above: Testing for SARS-CoV -2 by RT-PCRThis test was developed and its performance characteristics determined by [employer], [employer] ([employer] and validated at the [facility]. This test has not been FDA cleared [...] (COVID-19) RNA MAULIK+probe Ql (Unsp spec) N/A [facility] Vital Signs Date Time Vital Sign Value Performing Clinician Facility 07-21-2024 12:37-0400 Body height 160 cm Staci Collazo DO Work Phone: [facility] 07-21-2024 12:37-0400 Body mass index (BMI) [Ratio] 27.63 kg/m2 Staci Tiago DO Work Phone: [facility] 07-21-2024 12:37-0400 Body weight 70.76 kg Staci Tiago DO Work Phone: [facility] 07-21-2024 12:37-0400 Diastolic blood pressure 79 mm[Hg] Staci Tiago DO Work Phone: [facility] 07-21-2024 12:37-0400 Heart rate 88 /min Staci Tiago DO Work Phone: [facility] 07-21-2024 12:37-0400 SaO2% (BldA) [Mass fraction] 98 % Staci Tiago DO Work Phone: [facility] 07-21-2024 12:37-0400 Systolic blood pressure 122 mm[Hg] Staci Tiago DO Work Phone: [facility] 06-01-2023 09:09-0400 Diastolic blood pressure 50 mm[Hg] DO Vince Ball Work Phone: [facility] 06-01-2023 09:09-0400 Heart rate 74 /min DO Vince Ball Work Phone: [facility] 06-01-2023 09:09-0400 Respiratory rate 16 /min DO Vince Ball Work Phone: [facility] 06-01-2023 09:09-0400 SaO2% (BldA) [Mass fraction] 99 % DO Vince Ball Work Phone: [facility] 06-01-2023 09:09-0400 Systolic blood pressure 94 mm[Hg] DO Vince Ball Work Phone: [facility] 06-01-2023 07:35-0400 Body height 162.56 cm DO Vince Ball Work Phone: [facility] 06-01-2023 07:35-0400 Body weight 74.38 kg DO Vince Ball Work Phone: [facility] 05-13-2023 09:30-0400 Body height 162.56 cm Vince Ball Other [facility] [employer] Other 05-13-2023 09:30-0400 Body mass index (BMI) [Ratio] 28.94 kg/m2 Vince Villegas Other [employer] Other 05-13-2023 09:30-0400 Body weight 76.48 kg Vince Villegas Other [employer] Other 05-13-2023 09:30-0400 Diastolic blood pressure 80 mm[Hg] Vince Villegas Other [employer] Other 05-13-2023 09:30-0400 Respiratory rate 12 /min Vince Villegas Other [employer] Other 05-13-2023 09:30-0400 Systolic blood pressure 119 mm[Hg] Vince Villegas Other [employer] Other Encounters Encounter Date Encounter Type Care Provider Facility Start: 11-08-2024 End: 11-09-2024 ambulatory VINCE VILLEGAS Facility:[facility] Start: 11-08-2024 End: 11-08-2024 Patient encounter procedure Eda BOONE Work Phone: Audiology Comment on above: Sensorineural hearin g loss (SNHL), bilateral (Primary Dx); Cochlear implant in place Start: 10-25-2024 End: 10-26-2024 Telephone encounter Drake Rivas PA-C Work Phone: Otolaryngology Comment on above: Patient Question Start: 07-25-2024 End: 07-25-2024 Bamboo flowsheet Geraldine A Felter ZONE MANAGER-PRACTICE PROFESSIONAL Work Phone: [facility] Start: 07-25-2024 End: 07-25-2024 Bamboo flowsheet Geraldine A Felter ZONE MANAGER-PRACTICE PROFESSIONAL Work Phone: [facility] Start: 07-25-2024 End: 07-25-2024 Office outpatient new 45 minutes Geraldine A Felter ZONE MANAGER-PRACTICE PROFESSIONAL Work Phone: [facility] Comment on above: Seborrheic keratosis (Primary Dx); Melanocytic nevus of trunk; Sebaceous hyperplasia of face; Capillary angioma; Other atopic dermatitis Start: 07-25-2024 End: 07-25-2024 ambulatory GERALDINE CHRISTIAN Not Available Start: 07-21-2024 End: 07-21-2024 Bamboo flowsheet Staci Tiago DO Work Phone: [facility] Start: 07-21-2024 End: 07-21-2024 Bamboo flowsheet Staci Tiago DO Work Phone: [facility] [employer] [facility] Start: 07-21-2024 End: 07-21-2024 Office outpatient new 45 minutes Staci Tiago DO Work Phone: [facility] [employer] [facility] Comment on above: Blurred vision; Chronic tension-type headache, intractable; SUNIL (obstructive sleep apnea); Numbness and tingling Start: 07-21-2024 End: 07-21-2024 ambulatory STACI COLLAZO Not Available Start: 11-16-2023 End: 11-16-2023 ambulatory Vince Sheryl Other [employer] Other Start: 11-16-2023 Telephone encounter Vince Villegas [facility] Start: 10-30-2023 End: 10-30-2023 ambulatory Vince Villegas Other [employer] Other Start: 10-30-2023 Telephone encounter Vince Villegas [facility] Start: 10-22-2023 End: 10-22-2023 ambulatory FLACO KELBLEY Not Available Start: 10-16-2023 End: 10-16-2023 ambulatory FLACO KELBLEY Not Available Start: 10-14-2023 End: 10-14-2023 ambulatory FLACO KELBLEY Not Available Start: 10-08-2023 End: 10-08-2023 ambulatory HANH TATTERSALL Not Available Start: 10-05-2023 End: 10-05-2023 ambulatory HANH TATTERSALL Not Available Start: 10-01-2023 End: 10-01-2023 ambulatory HANH WRIGHT Not Available Start: 09-28-2023 End: 09-28-2023 ambulatory HANH WRIGHT Not Available Start: 09-24-2023 End: 09-24-2023 ambulatory KAREL CHINCHILLA Not Available Start: 08-10-2023 End: 08-10-2023 ambulatory Vince Villegas Other [employer] Other Start: 08-10-2023 Telephone encounter Vince Andrews [facility] Start: 06-24-2023 End: 06-24-2023 ambulatory Vince Sheryl Facility:[facility] Start: 06-24-2023 End: 06-24-2023 ambulatory DO Vince Sheryl Work Phone: [facility] Work Phone: Start: 06-24-2023 End: 06-24-2023 Patient encounter procedure DO Vince Villegas Work Phone: [facility] [place] Work Phone: Start: 06-02-2023 End: 06-02-2023 ambulatory Kalyan Guzman Other [facility] [employer] Other Start: 06-02-2023 Telephone encounter Kalyan PAREDES [facility] Start: 06-01-2023 Telephone encounter Vince PAREDES G [facility] Start: 06-01-2023 End: 06-01-2023 ambulatory Kalyan Guzman Facility:[facility] Start: 06-01-2023 End: 06-01-2023 Admission to same day surgery center DO Vince Ball Work Phone: [facility] Work Phone: Start: 06-01-2023 End: 06-01-2023 ambulatory DO Vince Ball Work Phone: [facility] Work Phone: Start: 05-25-2023 End: 05-25-2023 ambulatory Vince Villegas Other [employer] Other Start: 05-25-2023 Telephone encounter Vince Andrews [facility] Start: 05-13-2023 End: 05-13-2023 ambulatory Vince Villegas Other [employer] Other Start: 05-13-2023 Office outpatient vi sit 15 minutes Vince Villegas [facility] Start: 04-07-2023 End: 04-07-2023 ambulatory Kalyan Guzman Other [employer] Other Start: 04-07-2023 Telephone encounter Kalyan Andrews [facility] Start: 02-19-2023 End: 02-19-2023 ambulatory Vince Villegas Other [employer] Other Start: 02-19-2023 Nursing evaluation o f patient and report Vince Villegas [facility] Start: 11-05-2022 End: 11-06-[address] [...] on above: Result Comment: PERF ORMED BY: [facility] [address] [id number] PATHOLOGIST BISQUE KILN PLACER ESTEE KAPOOR M.D. Performed By: #### D IFF CBC, CEA, CMP #### [address] Start: 08-14-2023 Screening colonoscopy D O Vince Villegas Work Phone: Plan of Treatment Date Care Activity Detail Author Start: 2031 RSV Vaccine (1 - 1-dose 75+ series) RSV Vaccine (1 - 1-dose 75+ series) [facility] Start: 07-25-2025 End: 07-25-2025 Patient encounter procedure 07/25/2025 1:00 PM EDT Office Visit [facility] [address] [place] [phone] Geraldine Christian, ZONE MANAGER-PRACTICE PROFESSIONAL [address] [place] [address] [facility] Start: 11-16-2024 End: 11-16-2024 Patient encounter procedure 11/16/2024 1:25 PM EST Office Visit Otolaryngology [address] [place] [address] Drake Rivas PA-C [address] [facility] [address] [place] [address] CI magnet really tight and can hardly wear magnant/appt with audiology at main on 11-01-24/former Rod pt. Otolaryngology Comment on above: CI magnet really tig ht and can hardly wear magnant/appt with audiology at main on 11-01-24/former Rod pt. Start: 11-01-2024 End: 11-01-2024 Patient encounter procedure 11/01/2024 2:30 PM EST Office Visit Audiology [address] [address] Eda Malagon, AUD [address] [place] [address] CI magnet very tight Audiology Comment on above: CI magnet very tight Start: 10-19-2024 Advance Directive Discussion Advance Directive Discussion [facility] Start: 09-08-2024 End: 09-08-2024 Patient encounter procedure 09/08/2024 4:20 PM EST Office Visit [facility] [address] [place] [phone] Christine Prieto, SORAIDA [address] [place] [address] Start: 07-25-2024 End: 07-25-2024 [facility] Comment on above: Arrived Start: 07-21-2024 End: 07-21-2024 Patient encounter procedure 07/21/2024 12:15 PM EDT [facility] [address] [place] [address] Staci Collazo DO [address] [place] [address] Arrived [facility] [address] [facility] Comment on above: Arrived Start: 06-19-2024 Covid-19 Vaccine () Covid-19 Vaccine () [facility] Start: 06-19-2024 Influenza vaccination Influenza Vacc ine (#1) [facility] Start: 06-24-2023 Pneumococcal Vaccine : 50+ (3 of 3 - PCV20 or PCV21) Pneumococcal Vaccine: 50+ (3 of 3 - PCV20 or PCV21) [facility] Start: 06-24-2023 Pneumococcal Vaccine : 65+ Years (3 of 3 - PPSV23 or PCV20) Pneumococcal Vaccine: 65+ Years (3 of 3 - PPSV23 or PCV20) [facility] Start: 06-01-2023 End: 06-01-2023 [facility] Start: 06-01-2022 Diabetes Screening Diabetes Screenin g [facility] Start: 2021 Screening for osteoporosis Bone Density Screening [facility] Start: 2006 Shingrix Vaccine (1 of 2) Shingrix Vaccine (1 of 2) [facility] Start: 2001 Lipid panel Lipid Screening [facility] Start: 2001 Screening for malignant neoplasm of colon [facility] Start: 1996 Screening for malignant neoplasm of breast [facility] Start: 1975 Urine microalbumin profile DTaP,Tdap,Td Vaccine (1 - Tdap) [facility] Start: 1974 Annual PCP Team Chronic Disease Visit Annual PCP Team Chronic Disease Visit [facility] Start: 1974 Anxiety Screening Anxiety Screening [facility] Start: 1974 Depression Screening Depression Scre kyming [facility] Start: 1974 Hepatitis C screening Hepatitis C Sc mikel [facility] Start: 1955 Screening for malignant neoplasm of colon [facility] Patient Education Colon polyps Hemorrhoids (DC) Diverticulosis (DC) [facility] Work Phone: Immunizations Immunization Date Immunization Notes Care Provider Fa adonis 10-05-2021 COVID-19 Vaccine Pfi zer - Documentation Purposes Only Kalyan Guzman Other [employer] Other 04-04-2021 COVID-19 Vaccine Pfi zer - Documentation Purposes Only Kalyan Guzman Other [employer] Other 03-14-2021 COVID-19 Vaccine Pfi zer - Documentation Purposes Only Kalyan Guzman Other [employer] Other 06-24-2018 pneumococcal polysaccharide vaccine, 23 valent Kalyan Guzman Other [facility] 02-01-2018 pneumococcal conjuga te vaccine, 13 valent Kalyan Guzman Other [employer] Other Payers Date Payer Category Payer Medicare [id number] 2021 Unknown [id number] 1958 Medicare [id number] 1959 Self-pay [id number] 1959 Unknown [id number] 1955 Unknown [id number] 2.16.84 [id number] 1955 Unknown [id number] 2.16.84 0.1.186292.3.579.2.593 1955 Unknown [id number] 2.16.84 0.1.510766.3.579.2.593 1955 Unknown [id number] 2.16.84 0.1.810770.3.579.2.1259 1955 Unknown [id number] 2.16.84 0.1.562971.3.579.2.1259 1955 Unknown [id number] 2.16.840 .1.857337.3.579.2.1259 1955 Unknown [id number] 2.16.840 .1.951682.3.579.2.1259 1955 Unknown [id number] 2.16.840 .1.921186.3.579.2.1259 1955 Unknown [id number] 2.16.840 .1.205120.3.579.2.1259 1955 Unknown [id number] 2.16.840 .1.675368.3.579.2.1259 1955 Unknown [id number] 2.16.840 .1.651598.3.579.2.1259 1955 Unknown [id number] 2.16.840 .1.171788.3.579.2.1259 1955 Unknown [id number] 2.16.840 .1.183635.3.579.2.1259 Medicaid [id number] Unknown [id number] 2.16.8 [id number] Unknown [id number] 2.16.8 40.1.119751.3.579.2.531 Social History Date Type Detail Facility Tobacco smoking stat us NHIS Unknown if ever smoked [facility] Start: 1955 Sex Assigned At Female [facility] Start: 06-16-2023 End: 11-01-2024 Sex Assigned At [facility] Start: 02-23-2018 End: 06-01-2023 Tobacco smoking status NHIS Never smoked tobacco (finding) [facility] Start: 02-23-2018 End: 06-16-2023 Tobacco use and exposure Smokeless tobacco non-user [facility] Start: 06-16-2023 End: 07-25-2024 Alcoholic beverage intake Current drinker of alcohol (finding) [facility] Start: 06-16-2023 End: 11-01-2024 History of Social function [facility] Start: 06-09-2019 Gender identity Identifies as female gender (finding) [facility] Start: 07-04-2020 Alcoholic beverage intake Current non-drinker of alcohol (finding) [facility] Adult Depression Screening Assessment 0 [facility] Start: 06-09-2019 Sexual orientation Heterosexual (finding) [facility] Medical Equipment Procedure Code Equipment Code Equipment Original Text Equipment Identifier Dates Implant Nucleus Cochlear Slim Modiolar Electrode [id number] Sterile Latex Free - [id number] Start: 03-01-2018 Sic-Av-H-Kind Implant - [id number] Start: 03-01-2018 Comment on above: Description: [employer] Goals Date Patient Goal Desired Activity /State Clinical Notes 02-19-2023 to 11-08-2024 Eda Malagon AUD - 11/08/2024 1:00 PM ESTTelephone Encounter - Mery Mcgowan - 10/26/2024 11:16 AM ESTTelephone Encounter - Mery Mcgowan - 10/26/2024 11:16 AM EST Note Date & Type Note Facility 11-08-2024 History of Presen t illness Narrative Head [facility] Ne[facility] [place] [facility] [employer]PL[employer] ADULT PROGRAMMING Name: Sharri Atwood [facility]#:[id number] Date of Service: 10/30/2024 Date of : 1955 Age: [age] year old COCHLEAR IMPLANT INFORMATION (see below for all device details) RIGHT ear: Phonak Audeo B90-13 [employer] and managed at an outside facility. LEFT ear: External Processor Cochlear [employer] [id number] (Nucleus 7) Processor SN [id number] Magnet Strength 2 Internal Device Cochlear CI532 Profile with Slim Modiolar Electrode Array Internal Device SN [id number] Inactive electrodes 1-5, 22-21 (non-auditory percept; pressure) Surgery Date 03/01/2018 Initial activation date 03/30/2018 Surgeon Hope Velasco M.D. Accessories: Remote Control Mini Microphone 2+ Phone Clip Aqua+ Kit HISTORY: Sharri Atwood was seen for troubleshooting of the left device. The patient reported: * Pain (9/10) at magnet site; gradually worsened over the post 9 months. She stated she has not been wearing her implant when she is at home due to pain. She endorsed redness at the magnet site for the past couple months. Denied itchiness, but endorsed possible intermittent swelling. * Gradually worsened balance issues over the last year. She stated that this is worse in the dark/ low light. No falls within the past year. * Patient reported gradually increased difficulty hearing (possibly from both ears) for a while now. * Previous audiologic evaluation at [facility] on 03/29/2018 was most recent hearing evaluation. She indicated that she has not seen her hearing aid claim representative for programming since 2016. * Microphone covers last changed in early August 2024. * Last Otology visit date: 03/29/2018 * Problems noted with the equipment: recently attempted to replace coil, but spare coil was corroded and when placed on the processor sound was intermittent. She stated that she reached out to [employer] and they sent her a new coil. AIDED AUDIOMETRIC TESTING: Deferred as state of magnet site required medical evaluation and cochlear implant non-use was recommended. COCHLEAR IMPLANT PROGRAMMING/TROUBLESHOOTING: Troubleshooting: Magnet changed from a 2 to a 1 (from stock) with soft pad added. Patient was given a supply of soft pads and counseled on moleskin as a secondary option. LEFT Programming: Magnet site was checked with significant redness and skin irritation visualized (see pictures associated with today's visit in scanned docs) Patient was added on same-day to be seen by Saravanan Alcala MD. No programming changes made today. The function/use of the programs are listed below: (no changes from previous) Left Ear Program/Map # Program Feature 1 18 SCAN (ADRO + ASC), SNR-NR,WNR Active controls include: volume. SUMMARY AND RECOMMENDATIONS: Counseling Points: * Recommend patient discontinue use of left cochlear implant until medical follow up with Drake Rivas PA-C on 11/16/2024. * Recommend patient pursue an updated audiologic evaluation due to overall increased difficulty hearing. * Following updated hearing evaluation, recommend patient return for a hearing aid check with instructor robotics for maintenance and potential programming needs. * Continue to monitor magnet/incision site for pain, redness, swelling, scabbing etc. Should status of magnet site worsen contact the office immediately. * Continue use of hearing aid only during all waking hours until medically cleared for CI use. Follow-up Programming: It was recommended that the patient return following medical clearance for cochlear implant use for monitoring of auditory performance and potential programming needs. The center should be contacted if there are problems or concerns before that time. NOTE: It should be noted that the patient left the appointment with all the equipment. None of the patient's equipment was left in the Audiology Section of the Clinic. TOTAL TIME: 60 minutes Rob Santa, CCC/A copied to: Drake Rivas PA-C. documented in this encounter [facility] 11-08-2024 Note HNO ID: [id number] Author: EDA MALAGON AUD Service: ? Author Type: Coding Quality Coordinator Type: Progress Notes Filed: 11/08/2024 15:26 Note Text: [facility] [place] [facility] COCHLEAR IMPLANT ADULT PROGRAMMING Name: Sharri Atwood [facility]#:[id number] Date of Service: 10/30/2024 Date of : 1955 Age: [age] year old COCHLEAR IMPLANT INFORMATION (see below for all device details) RIGHT ear: Phonak Audeo B90-13 [employer] and managed at an outside facility. LEFT ear: External Processor Cochlear [employer] [id number] (Nucleus 7) Processor SN [id number] Magnet Strength 2 Internal Device Cochlear CI532 Profile with Slim Modiolar Electrode Array Internal Device [id number] Inactive electrodes 1-5, 22-21 (non-auditory percept; pressure) Surgery Date 03/01/2018 Initial activation date 03/30/2018 Surgeon Hope Velasco M.D. Accessories: Remote Control Mini Microphone 2+ Phone Clip Aqua+ Kit HISTORY: Sharri Atwood was seen for troubleshooting of the left device. The patient reported: * Pain (9/10) at magnet site; gradually worsened over the post 9 months. She stated she has not been wearing her implant when she is at home due to pain. She endorsed redness at the magnet site for the past couple months. Denied itchiness, but endorsed possible intermittent swelling. * Gradually worsened balance issues over the last year. She stated that this is worse in the dark/ low light. No falls within the past year. * Patient reported gradually increased difficulty hearing (possibly from both ears) for a while now. * Previous audiologic evaluation at [facility] on 03/29/2018 was most recent hearing evaluation. She indicated that she has not seen her hearing aid claim representative for programming since 2016. * Microphone covers last changed in early August 2024. * Last Otology visit date: 03/29/2018 * Problems noted with the equipment: recently attempted to replace coil, but spare coil was corroded and when placed on the processor sound was intermittent. She stated that she reached out to [employer] and they sent her a new coil. AIDED AUDIOMETRIC TESTING: Deferred as state of magnet site required medical evaluation and cochlear implant non-use was recommended. COCHLEAR IMPLANT PROGRAMMING/TROUBLESHOOTING: Troubleshooting: Magnet changed from a 2 to a 1 (from stock) with soft pad added. Patient was given a supply of soft pads and counseled on moleskin as a secondary option. LEFT Programming: Magnet site was checked with significant redness and skin irritation visualized (see pictures associated with today's visit in scanned docs) Patient was added on same-day to be seen by Saravanan Alcala MD. No programming changes made today. The function/use of the programs are listed below: (no changes from previous) Left Ear Program/Map # Program Feature 1 18 SCAN (ADRO + ASC), SNR-NR,WNR Active controls include: volume. SUMMARY AND RECOMMENDATIONS: Counseling Points: * Recommend patient discontinue use of left cochlear implant until medical follow up with Drake Rivas PA-C on 11/16/2024. * Recommend patient pursue an updated audiologic evaluation due to overall increased difficulty hearing. * Following updated hearing evaluation, recommend patient return for a hearing aid check with instructor robotics for maintenance and potential programming needs. * Continue to monitor magnet/incision site for pain, redness, swelling, scabbing etc. Should status of magnet site worsen contact the office immediately. * Continue use of hearing aid only during all waking hours until medically cleared for CI use. Follow-up Programming: It was recommended that the patient return following medical clearance for cochlear implant use for monitoring of auditory performance and potential programming needs. The center should be contacted if there are problems or concerns before that time. NOTE: It should be noted that the patient left the appointment with all the equipment. None of the patient's equipment was left in the Audiology Section of the Clinic. TOTAL TIME: 60 minutes Rob Santa, CCC/A copied to: Drake Rivas PA-C. [facility] 10-26-2024 Telephone encounter Note Patient scheduled 11/[address] [facility] for the cochlear and PSS explained that Drake Rivas appointment has needed to get established. [facility] 10-26-2024 Miscellaneous Notes Patient scheduled 11/[address] [facility] for the cochlear and PSS explained that Drake Rivas appointment has needed to get established. PSS: see the FYI tab and call patient. Patient returned your call and can be reached at: Call patient at: on cell [phone] (home) [phone] (cell) documented in this encounter [facility] 10-25-2024 Telephone encounter Note PSS: see the FYI tab and call patient. [facility] 10-25-2024 Telephone encounter Note Patient returned your call and can be reached at: Call patient at: on cell [phone] (home) [phone] (cell) [facility] 07-25-2024 History of Presen t illness Narrative [...] year, skin check documented in this encounter [facility] 07-21-2024 History of Presen t illness Narrative Images from the original note were not included. No chief complaint on file. Subjective Sharri Atwood, 68 y.o., female being seen in Neurology consultation at the request of Dr. Villegas. Numbness and tingling, blurred vision, headaches, facial pain, unsteadiness - CT brain, labs @ [facility]; referral received from Dr Vince Villegas, DO [...] Left 08/[address] Asad Rocha [phone] COLONOSCOPY 12/2015 Dr Fortunato Aquino [facility] [phone] COLONOSCOPY 06/01/2023 EXCISION 01/2017 Excision sebaceous cyst left breast Dr Fortunato Aquino [phone] LAMINECTOMY 03/1989 L5 - Dr Asad Carcamo [phone] LAMINECTOMY Bilateral 08/2015 L4 -Dr Asad OSMAN [place] BREAST REDUCTION 10/2015 Dr Carlitos Blood [phone] [place] LIGATN LONG SAPHENOUS VEIN AT [facility] J[facility] 09/2013 Long Saphenous venin stripped right leg - Dr Drake Ballard [phone] [place] RELEASE OF BIG TOE TENDN 03/2016 Abductor Tear Repair left Hip Dr Benjamin Anthony [phone] VAGINAL HYSTERECTOMY W/ ANTERIOR AND POSTERIOR VAGINAL [...] the most at night. 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 [...] clinic: 6 weeks documented in this encounter [facility] 06-02-2023 Evaluation note Encounter Date Diagnosis Assessment Notes May, Mass of colon (ICD-10 - K63.89) [facility] Other 08-14-2023 Procedure [facility]08-07-2023 Evaluation note* Encounter Date Diagnosis Assessment Notes Treatment Notes Treatment Clinical Notes May, Overweight (ICD-10 - E66.3) [facility] Other 07-26-2023 Evaluation note* Encounter Date Diagnosis [...] Apr, Other specified hypothyroidism (ICD-10 - E03.8) [facility] Other 05-04-2023 Evaluation note* Encounter Date Diagnosis Assessment Notes Treatment Notes Treatment Clinical Notes February, Seasonal allergic conjunctivitis (ICD-10 - H10.10) February, Seasonal allergic rhinitis due to pollen (ICD-10 - J30.1) [facility] Other Evaluation noteNo Assessments Information [facility] [email or web address] Other Evaluation noteNo assessment information available [facility] Work Phone: Evaluation note* Diagnosis Blurred vision Other specified visual disturbances Chronic tension-type headache, intractable Chronic tension type headache SUNIL (obstructive sleep apnea) Obstructive sleep apnea (adult) (pediatric) Numbness and tingling Disturbance of skin sensation documented in this encounter [facility] HealthcareEvaluation note* Diagnosis Seborrheic keratosis- Primary Melanocytic nevus of trunk Benign neoplasm of skin of trunk, except scrotum Sebaceous hyperplasia of face Capillary angioma Nevus, non-neoplastic Other atopic dermatitis documented in this encounter [facility] HealthcareEvaluation note* Diagnosis Sensorineural hearing loss (SNHL), bilateral- Primary Cochlear implant in place Other postprocedural status documented in this encounter [facility] Author Kalyan Guzman [facility] June 01, 2023 8:14am Note Date/Time June 01, 2023 8: 14am [facility] [address] [place] [address] Gastroenterology H&P Signed Patient: Sharri Atwood MR#: [id number] : 1955 Acct:[id number] Age/Sex: 67 / F Adm Date: 3 Loc: Room: Type: [facility] Attending Dr: Kalyan Guzman MD Copies [...] <Electronically signed by Kalyan Guzman MD> 06/01/23813 [facility] Work Phone: [facility] general Narrative - Reported* Type Description Date [...] Surgical History EGD Hospitalization History SEE SURGICAL [employer] [facility] [employer] Media Content Other [facility] general Narrative - Reported* Type Description Date Surgical History LUMBAR LAMINECTOMY 1988 Surgical History VAGINAL TAPING PROCEDURE 2006 Surgical History BLADDER SUSPENSION 2013 Surgical History RIGHT LOWER EXTR VEIN STRIPPING 2013 Surgical History BUNIONECTOMY LEFT FOOT Surgical History BREAST REDUCTION SURGERY 2016 Surgical History COLONOSCOPY 2016 Surgical History EGD Hospitalization History SEE SURGICAL [employer] [facility] Mobile Media Content Other [place] general Narrative - Reported* Type Description Date [...] Surgical History EGD Hospitalization History SEE SURGICAL [facility] Other History general Narrative - Reported* Type [...] CT abd/pelvis) 05/2023 Hospitalization History SEE SURGICAL [facility] Other [place] general Narrative - Reported* Type Description Date [...] 1 year) 07/2023 Hospitalization History SEE SURGICAL [facility] Other Hospital Discharge instructions Additional Instructions DISCHARGE [...] problems. -Follow up with PCP. -Office number [phone].[facility] Work Phone: Reason for visit Narrative* Consultation (Routine) - Closed Specialty Diagnoses / Procedures Referred By Contac t Referred To Contact Neurology Diagnoses Paresthesia of skin Headache, unspecified Other visual disturbances Atypical facial pain (CMS/HCC) Anesthesia of skin Unsteadiness on feet Procedures [place] OFFICE/OUTPATIENT NEW LOW [facility] 30 MINUTES Vince Villegas MD [address] [place] [address] Alis Arellano MD [address] [place] [address] Referral ID Status Reason Start Date Expiration Date V isits Requested Visits Authorized [id number] Closed Consult and Treat 06/22/2024 12/19/2024 1 1 [facility] Advance Directives No Advanced Directives Records Found Advance Directive Response Recorded Date/ Time Advance Directives No February 06, 2 021 10:29am Chief Complaint and Reason for Visit Chief Complaint Dysphagia Chief Complaint Screening Chief Complaint Screening K63.86 Summary Purpose Family History No Family History Records Found Relationship Condition Age at Onset Recorded Date/T parag grandparent Malignant neoplasm of colon Unknown Not Specified Malignant neoplasm of breast Unknown Additional Source Comments INFORMATION SOURCE (unrecogn ized section and content) DATE CREATED AUTHOR 06/17/2021 [facility] DATE CREATED AUTHOR AUTHOR'S ORGANIZ ATION 01/24/[address] [facility] DATE CREATED AUTHOR AUTHOR'S ORGANIZ ATION 07/05/2023 [facility] DATE CREATED AUTHOR AUTHOR'S ORGANIZ ATION 07/26/2024 [facility] EPIC DATE CREATED AUTHOR AUTHOR'S ORGANIZ ATION 11/10/2024 [facility] REASON FOR VISIT (unrecogniz ed section and content) Reason Comments Skin Check Reason Comments Patient Question Reason Comments Hearing Loss Care Teams (unrecognized sec tion and content) Team Status: Active Member Role Status Dates Vince Villegas DO Primary Care Provider Active Team Status: Inactive Member Role Status Dates Vince Villegas DO Primary Care Provider Active Kalyan Guzman MD Attending Provider Active Filling Winder Relationship Specialty Start Date End Date Vince Villegas MD [address] [place] [id number] PCP - General Internal Medicine 06/03/23 Filling Winder Relationship Specialty Start Date End Date Vince Villegas MD [address] [place] [id number] PCP - General Internal Medicine 06/03/23 Filling Winder Relationship Specialty Start Date End Date Vince Villegas MD [address] [place] [id number] PCP - General Internal Medicine 06/03/23 Filling Winder Relationship Specialty Start Date End Date Vince Villegas MD [address] [facility] [place] [address] PCP - General Internal Medicine 06/03/23 Filling Winder Relationship Specialty Start Date End Date Vince Villegas DO [address] [facility] [place] [address] PCP - General Internal Medicine 05/19/19 Source Comments (unrecognize d section and content) In the event this informatio n is protected by the Federal Confidentiality of Alcohol and Drug Abuse Patient Records regulations: The Federal rules restrict any use of the information to criminally investigate or prosecute any alcohol or drug abuse patient.[facility] the event this information is protected by the Federal Confidentiality of Alcohol and Drug Abuse Patient Records regulations: The Federal rules restrict any use of the information to criminally investigate or prosecute any alcohol or drug abuse patient.[facility] FOR RECORDS PERTAINING TO PATIENTS WHO ARE [...] BE BASED ON THE PRIMARY CLINICAL RECORDS. [facility] provides no warranty or guarantee of the accuracy or completeness of information in this document.
== END 2024-11-14 10:25 | disposition home or self-care (01) ==
LOC: MAMMO 10:25
PROVIDERS: PCP Internal Medicine; Visit Provider Internal Medicine
DX: Z12.31 Encounter for screening mammogram for malignant neoplasm of breast (principal); Z80.3 Family history of malignant neoplasm of breast; Z80.0 Family history of malignant neoplasm of digestive organs
CPT/HCPCS: 77063; 77067

== ENCOUNTER 2025-03-22 13:55 | Outpatient (OUT) | payer MEDICARE, OTHER, SELFPAY ==
--- OUTSIDE RECORDS SUMMARY | 2025-03-21 09:35 | XMS_ITS | Encounter Summary ---
Author Organization [facility] Address [address] [place] [address] Care Team Providers Care Decal Cutter Name Role Phone Demetrio Ulrich MD Primary Care Provider Rachelea ble Encounter Details Date Type Department Care Team (Late st Contact Info) Description 01/02/2016 PAT Telephone STA Pre-Admit Testing [facility] [place] [address] Linn Milian, RN Social History Tobacco Use Types Packs/Day Years Used Date Smoking Tobacco: Never Comments Unknown Sex and Gender Information Value Date Recorded Sex Assigned at Not on file Legal Sex Female 10:44 AM EDT Gender Identity Not on file Sexual Orientation Not on file documented as of this encounter Plan of Treatment Not on file documented as of this encounter Visit Diagnoses Not on filedocumented in this encounter Care Teams Decal Cutter Relationship Specialty Start Date End Date Demetrio Ulrich MD PCP - General Family Medicine 11/16/14 documented as of this encounter
--- OUTSIDE RECORDS SUMMARY | 2025-03-21 09:35 | XMS_ITS | Encounter Summary ---
Author Organization [facility] Address [address] [place] [address] Care Team Providers Care Pulmonary Physician Name Role Phone Brent Villegas Primary Care Provider [phone] Vince Villegas DO Primary Care Provider [phone] Source Comments In the event this information is protected by the Federal Confidentiality of Alcohol and Drug AbusePatient Records regulations: The Federal rules restrict any use of the information to criminally investigate or prosecute any alcohol or drug abuse patient.[facility] Encounter Details Date Type Department Care Team (Late st Contact Info) Description 07/17/2017 Patient Msg Neurology [address] [id number] Ed[place] Beltran [address] AD[address]ESS RE: Appointment Cancellation Request Social History Tobacco Use Types Packs/Day Years Used Date Smoking Tobacco: Never Alcohol Use Standard Drinks/Week Comments No 0 (1 standard drink = 0.6 oz pur e alcohol) Comments No Sex and Gender Information Value Date Recorded Sex Assigned at Female 06/09/2019 8:09 PM EDT Legal Sex Female 9:16 AM EST Gender Identity Female 06/09/2019 8:09 PM EDT Sexual Orientation Straight 06/09/2019 8: 09 PM EDT documented as of this encounter Functional Status * Are you deaf or do you have serious difficulty hearing? Answer Date of Assessment Author Yes 03/03/2014 1:26 PM EDSa cecile Gordon MA * Are you blind or do you have serious difficulty seeing, even when wearing glasses? Answer Date of Assessment Author No 03/03/2014 1:26 PM EDSa cecile Gordon MA * Do you have serious difficulty walking or climbing stairs? Answer Date of Assessment Author No 03/03/2014 1:26 PM EDSa cecile Gordon MA * Do you have difficulty dressing or bathing? Answer Date of Assessment Author No 03/03/2014 1:26 PM EDT Sa cecile Bello MA * Because of a physical, mental, or emotional condition, do you have difficulty doing errands alone such as visiting a doctor's office or shopping? Answer Date of Assessment Author No 03/03/2014 1:26 PM Sa cecile Kwok MA documented as of this encounter Mental Status * Because of a physical, mental, or emotional condition, do you have serious difficulty concentrating, remembering, or making decisions? Answer Entry Date Author No 03/03/2014 1:26 PM Sa cecile Kwok MA documented in this encounter Plan of Treatment Not on file documented as of this encounter Visit Diagnoses Not on filedocumented in this encounter Care Teams Pulmonary Physician Relationship Specialty Start Date End Date Brent Villegas [address] [place] [address] PCP - General 01/26/01 05/18/19 Vince Villegas DO [address] [place] [address] PCP - General Internal Medicine 05/19/19 documented as of this encounter
--- OUTSIDE RECORDS SUMMARY | 2025-03-21 09:35 | XMS_ITS | Encounter Summary ---
Author Organization [facility] Address [address] [place] [address] Care Team Providers Care Eyeglass Lens Grinder Name Role Phone Vince Villegas Primary Care Provider [phone] Source Comments In the event this information is protected by the Federal Confidentiality of Alcohol and Drug AbusePatient Records regulations: The Federal rules restrict any use of the information to criminally investigate or prosecute any alcohol or drug abuse patient.[facility] Encounter Details Date Type Department Care Team (Late st Contact Info) Description 2021 [place] [address] Provider, [facility] Medicare Coverage of Physical Exams Social History Tobacco Use Types Packs/Day Years Used Date Smoking Tobacco: Never Smokeless Tobacco: Never Alcohol Use Standard Drinks/Week Comments No 0 (1 standard drink = 0.6 oz pur e alcohol) PHQ-2 Answer Date Recorded PHQ-2 score 0 07/04/2020 Area Deprivation Index Answer Date Roberto rded National Score (1-100), lower number is lower ri sk Not on file 09/25/2020 State Score (1-10), lower number is lower risk N ot on file 09/25/2020 Data from: https://www.neighborhoodatlas.medicine.[facility].edu/. Last address used for calculation Not on file 09/25/2020 Comments No Sex and Gender Information Value [...] of Assessment Author Yes 03/03/2014 1:26 PM EDT Sa cecile eBllo MA * Are you blind or do you have serious difficulty seeing, even when wearing glasses? Answer Date of Assessment Author No 03/03/2014 1:26 PM EDT Sa cecile Bello MA * Do you have serious difficulty walking or climbing stairs? Answer Date of Assessment Author No 03/03/2014 1:26 PM EDT Sa cecile Bello MA * Do you have difficulty dressing or bathing? Answer Date of Assessment Author No 03/03/2014 1:26 PM EDT Sa cecile Bello MA * Because of a physical, mental, or emotional condition, do you have difficulty doing errands alone such as visiting a doctor's office or shopping? Answer Date of Assessment Author No 03/03/2014 1:26 PM EDT Sa cecile Bello MA documented as of this encounter Mental Status * Because of a physical, mental, or emotional condition, do you have serious difficulty concentrating, remembering, or making decisions? Answer Entry Date Author No 03/03/2014 1:26 PM EDT Sa cecile Bello MA documented in this encounter Plan of Treatment Not on file documented as of this encounter Visit Diagnoses Not on filedocumented in this encounter Care Teams Eyeglass Lens Grinder Relationship Specialty Start Date End Date Vince Villegas DO [address] [place] [address] PCP - General Internal Medicine 05/19/19 documented as of this encounter
--- OUTSIDE RECORDS SUMMARY | 2025-03-21 09:35 | XMS_ITS | Clinical Summary ---
Author Organization [employer] Address [id number] [address] [place] [address] Care Team Providers Care Tube Heater Name Role Phone Vince Villegas DO Primary Care Provider [phone] Allergies No known active allergies Medications progesterone (PROMETRIUM) 100 mg capsule Take 100 mg by mouth daily. Active levothyroxine (SYNTHROID, LEVOTHROID) 100 MCG tablet Take 100 mcg by mouth daily. Active Active Problems Problem Noted Date Diagnosed Date Spider veins of both lower extremities 7 Social History Tobacco Use Types Packs/Day Years Used Date Smoking Tobacco: Never Assessed Childcare Answer Date Recorded Childcare Unknown 03/30/2019 Employment Answer Date Recorded Employment Unknown 03/30/2019 Purpose - Life Answer Date Recorded Purpose and direction in life Unknown Comments Unknown Sex and Gender Information Value Date Recorded Sex Assigned at Not on file Legal Sex Female 11:39 AM EDT Gender Identity Not on file Sexual Orientation Not on file Last Filed Vital Signs Vital Sign Reading Time Taken Comments Blood Pressure 116/68 01/15/2017 2:29 PM EDT Pulse - - Temperature - - Respiratory Rate - - Oxygen Saturation - - Inhaled Oxygen Concentration - - Weight 71.7 kg (158 lb) 10/27/2016 10:04 AM EST Height 162.6 cm (5' 4 ) 10/27/2016 10:04 AM EST Body Mass Index 27.12 10/27/2016 10:04 AM EST Plan of Treatment Health Maintenance Due Date Last Done Comments Depression Screening 1968 Tobacco Screening 1968 Adult BMI Screening 1974 DTaP,Tdap and Td Vaccines (1 - Tdap) 1975 Zoster (Shingles) Vaccine (1 of 2) 2006 Fall Risk Screening 2021 Influenza Vaccine 06/19/2025 Medical Devices Not on file Insurance [employer] Care Teams Tube Heater Relationship Specialty Start Date End Date Vince Villegas DO [address] [place] [address] PCP - General 04/29/13
--- OUTSIDE RECORDS SUMMARY | 2025-03-21 09:35 | XMS_ITS | Encounter Summary ---
Author Organization [facility] Address [address] [place] [address] Care Team Providers Care Hebrew Cantor Name Role Phone Brent Villegas Primary Care Provider [phone] Vince Villegas DO Primary Care Provider [phone] Source Comments In the event this information is protected by the Federal Confidentiality of Alcohol and Drug AbusePatient Records regulations: The Federal rules restrict any use of the information to criminally investigate or prosecute any alcohol or drug abuse patient.[facility] Encounter Details Date Type Department Care Team (Late st Contact Info) Description 03/06/2017 Patient Msg Otolaryngology [address] [place] [address] Rosy Blue APRN.DIRECTOR OF SPORTS MEDICINE [address] [place] [address] results Social History Tobacco Use Types Packs/Day Years [...] Yes 03/03/2014 1:26 PM EDT Sa cecile Bello MA * Are you blind or do [...] Entry Date Author No 03/03/2014 1:26 PM CINDYT Sa cecile Bello MA documented in this encounter Plan of Treatment Not on file documented as of this encounter Visit Diagnoses Not on filedocumented in this encounter Care Teams Hebrew Cantor Relationship Specialty Start Date End Date Brent Villegas [address] [place] [address] PCP - General 01/26/01 05/18/19 Vince Villegas DO [address] [place] [address] PCP - General Internal Medicine 05/19/19 documented as of this encounter
--- OUTSIDE RECORDS SUMMARY | 2025-03-21 09:35 | XMS_ITS | Encounter Summary ---
Author Organization [facility] Address [address] [place] [address] Care Team Providers Care Paralegal Instructor Name Role Phone Demetrio Ulrich MD Primary Care Provider Unavaila ble Encounter Details Date Type Department Care Team (Late st Contact Info) Description 01/08/2016 Post-op Telephone [facility] General Surgery [address] [place] [address] Key Arzate RN Social History Tobacco Use Types Packs/Day [...] on filedocumented in this encounter Care Teams Paralegal Instructor Relationship Specialty Start Date End Date Demetrio Ulrich MD PCP - General Family Medicine 11/16/14 documented as of this encounter
--- OUTSIDE RECORDS SUMMARY | 2025-03-21 09:35 | XMS_ITS | Clinical Summary ---
Author Organization [facility] Address [address] [place] [address] Care Team Providers Care Computer Artist Name Role Phone Demetrio Ulrich MD Primary Care Provider Unavaila ble Allergies No known active allergies Medications Progesterone 100 MG CAPS Take 1 capsule by mouth daily. Active ibuprofen (ADVIL;MOTRIN) 800 MG tablet Take 1 tablet by mouth every 6 hours as needed. 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 Hydronephrosis 12/20/2014 Family History Medical History Relation Name Comments Breast Cancer Other COPD Other Diabetes Other Relation Name Status Comments Other Social History Tobacco Use Types Packs/Day Years [...] Sign Reading Time Taken Comments Blood Pressure 115/71 01/07/2016 8:30 AM EDT Pulse 80 01/07/2016 8:30 AM EDT Temperature 36.3 C (97.3 F) 01/07/2016 8:06 AM EDT Respiratory Rate 19 01/07/2016 8:30 AM EDT Oxygen Saturation 96% 01/07/2016 8:30 AM EDT Inhaled Oxygen Concentration - - Weight 80 kg (176 lb 5.9 oz) 01/07/2016 6:57 AM EDT Height 165.1 cm (5' 5 ) 01/07/2016 6:57 AM EDT Body Mass Index 29.35 01/07/2016 6:57 AM EDT Plan of Treatment Not on file Advance Directives * Full Code (Latest Code Status on File) Date Activated Date Inactivated Comments 12/25/2014 5:18 PM 12/26/2014 4:40 PM Care Teams Computer Artist Relationship Specialty Start Date End Date Demetrio Ulirch MD PCP - General Family Medicine 11/16/14
--- OUTSIDE RECORDS SUMMARY | 2025-03-21 09:35 | XMS_ITS | Clinical Summary ---
Author Organization [facility] Address [address] [place] [address] Phone Care Team Providers Care Beet Flumer Name Role Phone Unavailable Primary Care Provider Unavailabl e Social History Tobacco Use Types Packs/Day Years Used Date Smoking Tobacco: Never Assessed Comments Unknown Sex and Gender Information Value Date Recorded Sex Assigned at Not on file Legal Sex Female 7:06 AM EST Gender Identity Not on file Sexual Orientation Not on file Plan of Treatment Not on file
--- OUTSIDE RECORDS SUMMARY | 2025-03-21 09:35 | XMS_ITS | Encounter Summary ---
Author Organization [facility] Address [address] [place] [address] Care Team Providers Care Denture Packer Name Role Phone Vince Villegas Primary Care Provider [phone] Source Comments In the event this information is protected by the Federal Confidentiality of Alcohol and Drug AbusePatient Records regulations: The Federal rules restrict any use of the information to criminally investigate or prosecute any alcohol or drug abuse patient.[facility] Encounter Details Date Type Department Care Team (Late st Contact Info) Description 10/27/2024 Patient Msg [place] [address] [place] [address] Provider, [facility] 11/01/24 New Appt Time Social History Tobacco Use Types Packs/Day Years [...] N ot on file 09/25/2020 Data from: https://www.neighborhoodatlas.medicine.[facility].edu/. Last address used for calculation Not on [...] on filedocumented in this encounter Care Teams Denture Packer Relationship Specialty Start Date End Date Vince Villegas DO [address] [place] [address] PCP - General Internal Medicine 05/19/19 documented as of this encounter
--- OUTSIDE RECORDS SUMMARY | 2025-03-21 09:35 | XMS_ITS | Clinical Summary ---
Author Organization [facility] Address [address] [place] [address] Care Team Providers Care Boiler Helper Name Role Phone Vince Villegas Primary Care Provider [phone] Allergies Active Allergy Reactions Criticality Noted Date Comments Oxycodone 10/11/2007 Other Reaction(s): Vomiting Wound Dressing Adhesive Unknown 06/16/2023 Medications levothyroxine (Synthroid, Levoxyl) 100 MCG tablet Take 100 mcg by mouth in the morning. Active Hormone Cream Base cream 10/19/2017 Active phentermine (Adipex-P) 37.5 MG tablet Take 37.5 mg by mouth in the morning. Take before meals. 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 23 Immunizations Immunization Administration Dates Next Due Pneumococcal Conjugate PCV 13 02/01/2018 Pneumococcal Polysaccharide PPSV23 06/24/2018 Family History Medical History Relation Name Comments Crohn's disease Brother youngest bro ther No Known Problems Father Breast cancer Mother COPD Mother Diabetes type II Mother Hypothyroidism Sister Osteoporosis Sister Relation Name Status Comments Brother Alive x2 Daughter Alive Father Mother Sister Alive Son Alive x2 Social History Tobacco Use Types Packs/Day Years Used Date Smoking Tobacco: Never Smokeless Tobacco: Never Tobacco Cessation:Counseling Given: Not Answered Alcohol Use Standard Drinks/Week Comments Yes 0 (1 standard drink = 0.6 oz pur e alcohol) Comments Unknown Sex and Gender Information Value Date Recorded Sex Assigned at Female 06/16/2023 7:08 AM EDT Legal Sex Female 8:32 PM EDT Gender Identity Female 06/16/2023 7:08 AM EDT Sexual Orientation Not on file Last Filed Vital Signs Vital Sign Reading Time Taken Comments Blood Pressure 122/79 07/21/2024 12:37 PM EDT Pulse 88 07/21/2024 12:37 PM EDT Temperature - - Respiratory Rate - - Oxygen Saturation 98% 07/21/2024 12:37 PM EDT Inhaled Oxygen Concentration - - Weight 70.8 kg (156 lb) 07/21/2024 12:37 PM EDT Height 160 cm (5' 3 ) 07/21/2024 12:37 PM EDT Body Mass Index 27.63 07/21/2024 12:37 PM EDT Plan of Treatment Upcoming Encounters Date Type Department Care Team (Late st Contact Info) Description 07/25/2025 1:00 PM EDT Office Visit [facility] [address] [place] [address] Sabine Christian APRN-TOBACCO PRIMER MACHINE OPERATOR [address] [place] [address] Health Maintenance Due Date Last Done Comments CT Colonography 1956 Colonoscopy 1956 Colorectal Cancer Screening 1956 FIT-DNA 1956 FIT 1956 FOBT 1956 Sigmoidoscopy 1956 Mammogram 1996 Pneumococcal Vaccine: 65+ Ye ars (3 of 3 - PCV20 or PCV21) 06/24/2023 06/24/2018, 02/01/2018 Influenza Vaccine (Season Ended) 2025 Insurance [employer] Care Teams Boiler Helper Relationship Specialty Start Date End Date Vince Villegas DO PCP - General Internal Medicine 06/03/23
--- OUTSIDE RECORDS SUMMARY | 2025-03-21 09:35 | XMS_ITS | Clinical Summary ---
Author Organization [facility] Address [address] [place] [address] Care Team Providers Care Health Services Manager Name Role Phone Vince Villegas Primary Care Provider [phone] Allergies Active Allergy Reactions Criticality Noted Date Comments bandaids [Other] 08/27/2007 Oxycodone Vomiting 10/11/2007 Medications ACETAMINOPHEN/C AFFEINE (EXCEDRIN TENSION HEADACHE ORAL) Take by mouth as needed. Active levothyroxine 25 mcg cap Take 25 mcg by mouth daily before breakfast. Active mupirocin (BACTROBAN) 2 % ointment Apply to affected area two times a day. 15 g 11/08/2024 Active Active Problems Problem Noted Date Diagnosed Date Cochlear implant follow-up 03/30/[address] 03/29/2018 Bilateral sensorineural hearing loss 12/24/2017 Overview (12/24/2017): Added automatically from request for surgery [id number] Sensorineural hearing loss, bilateral 04/09/2017 Tinnitus 04/09/2017 Vertigo 02/05/2017 Headache 02/05/2017 Asymmetrical hearing loss of both ears 7 Hypothyroidism Resolved Problems Problem Noted Date Diagnosed Date Resolved Date Headache(784.0) 02/16/2017 02/23/2018 Essential hypertension, benign 10/14/2007 10/14/2007 Immunizations Immunization Administration Dates Next Due pneumococcal conjugate (PCV1 3) vaccine, 13 valent (PREVNAR 13) 02/01/2018 pneumococcal polysaccharide (PPV23) vaccine, 23 valent (PNEUMOVAX 23) 06/24/2018 Family History Medical History Relation Comments Cancer Maternal Grandmother colon Diabetes Mother Relation Status Comments Maternal Grandmother Mother Social History Tobacco Use Types Packs/Day Years Used Date Smoking Tobacco: Never Smokeless Tobacco: Never Alcohol Use Standard Drinks/Week Comments No 0 (1 standard drink = 0.6 oz pur e alcohol) PHQ-2 Answer Date Recorded PHQ-2 score 0 07/04/2020 Area Deprivation Index Answer Date Roberto rded National Score (1-100), lower number is lower ri sk 93 11/01/2024 State Score (1-10), lower number is lower risk 9 11/01/2024 Data from: https://www.neighborhoodatlas.medicine.[facility]/. Last address used for calculation [address] 11/01/2024 Comments No Sex and Gender Information Value Date Recorded Sex Assigned at Female 06/09/2019 8:09 PM EDT Legal Sex Female 9:16 AM EST Gender Identity Female 06/09/2019 8:09 PM EDT Sexual Orientation Straight 06/09/2019 8: 09 PM EDT Last Filed Vital Signs Vital Sign Reading Time Taken Comments Blood Pressure 127/75 07/04/2020 9:56 AM EDT Pulse 70 07/04/2020 9:56 AM EDT Temperature 36.1 C (97 F) 07/04/2020 9:56 AM EDT Respiratory Rate 18 07/04/2020 9:56 AM EDT Oxygen Saturation 96% 07/04/2020 9:56 AM EDT Inhaled Oxygen Concentration - - Weight 78.4 kg (172 lb 12.8 oz) 07/04/2020 9:56 AM EDT Height 166.4 cm (5' 5.51 ) 07/04/2020 9:56 AM ED T Body Mass Index 28.31 07/04/2020 9:56 AM EDT Plan of Treatment Health Maintenance Due Date Last Done Comments Annual PCP Team Chronic Disease Visit 1974 Anxiety Screening 1974 Depression Screening 1974 Hepatitis C Screening 1974 DTaP,Tdap,Td Vaccine (1 - Tdap) [address] Colonography 2001 Cologuard (FIT-DNA) 2001 Colonoscopy 2001 Colorectal Cancer Screening 2001 Fecal Occult Blood 2001 Lipid Screening 2001 Sigmoidoscopy 2001 Shingrix Vaccine (1 of 2) 2006 Bone Density Screening 2021 Diabetes Screening 06/01/2022 06/01/2019, 1 12/15/2006, 10/06/2007 Pneumococcal Vaccine: 50+ (3 of 3 - PCV20 or PCV21) 06/24/2023 06/24/2018, 02/01/2018 Covid-19 Vaccine ( - season) 2024 10/05/2021, 04/04/2021, 03/14/2021 Advance Directive Discussion 10/19/2024 Influenza Vaccine (Season Ended) 2025 RSV Vaccine (1 - 1-dose 75+ series) 2031 Medical Devices Implanted Type Area Trekking Guide Device Identifier Shelf Expiration Date Model / Serial / Lot Implant Nucleus Cochlear Slim Modiolar Electrode [id number] Sterile Latex Free - [id number] Implanted:Qty: 1 on 03/01/2018 at [facility] Implant COCHLEAR 12/01/2019 [id number] / [id number] / [id number]-Kind Implant - [id number] Implanted:Qty: 1 on 03/01/2018 at [facility] Implant COCHLEAR [id number] / / Description:[employer] Procedures Procedure Name Priority Date/Time Associated Diagnosis Comments BASIC METABOLIC PANEL Routine 06/01/2019 12:38 PM EDT Lymphocytosis from Last 3 Months or Most Recently Relevant to Health Maintenance Results * (ABNORMAL) BASIC METABOLIC PNL (06/01/2019 12:38 PM EDT) [facility] Glucose 93 74 - 99 mg/dL 06/02/2019 5:51 AM EDT [facility] Comment: The [place] Diabetes Association (ADA) provides guidance for cutoff values for fasting glucose and random glucose. The ADA defines fasting as no caloric intake for at least 8 hours. Fasting plasma glucose results between 100 to 125 mg/dL indicate increased risk for diabetes (prediabetes). Fasting plasma glucose results greater than or equal to 126 mg/dL meet the criteria for diagnosis of diabetes. In the absence of unequivocal hyperglycemia, results should be confirmed by repeat testing. In a patient with classic symptoms of hyperglycemia or hyperglycemic crisis, random plasma glucose results greater than or equal to 200 mg/dL meet the criteria for diagnosis of diabetes. Reference: Standards of Medical Care in Diabetes 2016, [place] Diabetes Association. Diabetes Care. 2016.39(Suppl 1). BUN 10 7 - 21 mg/dL 06/02/2019 5:51 AM EDT [facility] Creatinine 0.63 0.58 - 0.96 mg/dL 06/02/2019 5:51 AM EDT [facility] Sodium 142 136 - 144 mmol/L 06/02/2019 5:51 AM EDT [facility] Potassium 4.4 3.7 - 5.1 mmol/L 06/02/2019 5:51 AM EDT [facility] Chloride 107(H) 97 - 105 mmol/L 06/02/2019 5:51 AM EDT [facility] CO2 23 22 - 30 mmol/L 06/02/2019 5:51 AM EDT [facility] Anion Gap 12 9 - 18 mmol/L 06/02/2019 5:51 AM EDT [facility] Calcium 9.5 8.5 - 10.2 mg/dL 06/02/2019 5:[facility] eGFR- >60 06/02/2019 5:51 AM [facility] eGFR-All Other Races >60 . 06/02/2019 5:51 AM [facility] Comment: eGFR (Estimated GFR) Units of measure: mL/min/1.73 meters squared eGFR is derived from the reexpressed MDRD Study equation using the following parameters: serum creatinine, age, gender and race. The creatinine assay has been calibrated to be traceable to IDMS. An eGFR <60 mL/min/1.73m2 for >3 months is consistent with chronic kidney disease. Refer to KDOQI guidelines for clinical interpretation. In patients with unstable renal function, e.g. those with acute kidney injury, the eGFR may not accurately reflect actual GFR. Blood specimen (specimen) 06/01/2019 12:38 PM EDT 06/01/2019 12:48 PM EDT us Talon Lynne DO LABORATORY Final Res ult [facility] [address] [place] [address] [facility] [address] [place] [address] from Last 3 Months or Most Recently Relevant to Health Maintenance Insurance MMO MEDICARE SUPPLEMENT MEDICARE Care Teams Health Services Manager Relationship Specialty Start Date End Date Vince Villegas DO [address] [place] [address] PCP - General Internal Medicine 05/19/19
[2025-03-22 14:12] LABS: Basophils Absolute Auto 0.1 10^3/uL (0.0-0.1); Basophils Percent Auto 1.1 % (0.2-2.0); Eosinophils Absolute Auto 0.1 10^3/uL (0.0-0.7); Eosinophils Percent Auto 1.4 % (0.9-7.0); Hemoglobin 12.8 g/dL (12.0-16.0); Immature Granulocytes Abs Auto 0.02 10^3/uL (0.00-0.03); Immature Granulocytes Pct Auto 0.3 % (0.0-0.5); Lymphocytes Absolute Auto 1.9 10^3/uL (1.2-3.8); Lymphocytes Percent Auto 29.9 % (20.5-60.0); Mean Corpuscular Hemoglobin 28.8 pg (26.7-34.0); Mean Corpuscular Volume 89.9 fL (81.0-99.0); Mean Platelet Volume 9.1 fL (9.5-13.5); Monocytes Absolute Auto 0.8 10^3/uL (0.3-0.8); Monocytes Percent Auto 11.7 % (1.7-12.0); Neutrophils Absolute Auto 3.6 10^3/uL (1.4-6.5); Neutrophils Percent Auto 55.6 % (43.0-75.0); Platelet Count 189 10^3/uL (150-450); Red Blood Count 4.45 10^6/uL (4.20-5.40); Red Cell Distribution Width 13.2 % (11.0-15.0); White Blood Count 6.4 10^3/uL (4.0-11.0)
[2025-03-22 14:58] LABS: Alanine Aminotransferase 14 U/L (14-59); Albumin Level 3.5 g/dL (3.4-5.0); Alkaline Phosphatase 98 U/L (46-116); Anion Gap 14.7; Aspartate Amino Transferase 17 U/L (15-37); Bilirubin Total 0.4 mg/dL (0.2-1.0); C Reactive Protein <0.50 mg/dL (<=0.50); Calcium 9.4 mg/dL (8.5-10.1); Carbon Dioxide 25.4 mmol/L (21.0-32.0); Chloride 109 mmol/L (98-107); Estimated GFR (African America >60 (>=60 mL/min/1.73m^2); Estimated GFR (Non-African Ame >60 (>=60 mL/min/1.73m^2); Globulin 3.4 g/dL; Glucose 104 mg/dL (74-106); Potassium 4.1 mmol/L (3.5-5.1); Sodium 145 mmol/L (136-145); Thyroid Stimulating Hormone 1.089 uIU/mL (0.358-3.740); Total Protein 6.9 g/dL (6.4-8.2)
== END 2025-03-22 13:56 | disposition home or self-care (01) ==
LOC: LAB 13:55
PROVIDERS: PCP Internal Medicine; Visit Provider Internal Medicine
DX: R53.83 Other fatigue (principal); M19.90 Unspecified osteoarthritis, unspecified site; M79.10 Myalgia, unspecified site
CPT/HCPCS: 36415; 80053; 84443; 85025; 86140

== ENCOUNTER 2025-07-06 14:11 | Outpatient (OUT) | payer MEDICARE, OTHER, SELFPAY ==
--- OUTSIDE RECORDS SUMMARY | 2025-07-06 07:42 | XMS_ITS | Continuity of Care Document ---
Author Organization [facility] Address [address] [place] [address] Phone Care Team Providers Care Contract Forester Name Role Phone Bakari Vince MONTOYA Primary Care Provider Vince Villegas DO Attending Provider Care Teams Patient Care Team Team Status: Active Member Role Status Dates Vince Villegas DO Primary Care Provider Active Visit Care Team Team Status: Inactive Member Role Status Dates Vince iVllegas DO Primary Care Provider Active Start: April 18, 2025 End: April 18, 2025 Vince Villegas DO Attending Provider Active Sta rt: April 18, 2025 End: April 18, 2025 Patient Care Team Team Status: Inactive Member Role Status Dates Vince Villegas DO Primary Care Provider Active Start: July 06, 2025 End: July 06, 2025 Vince Villegas DO Attending Provider Active Sta rt: July 06, 2025 End: July 06, 2025 Chief Complaint and Reason for Visit Chief Complaint Admit Date 1 month f/u April 18, 2025 1:59p m Wellness July 06, 2025 10:58am Reason for Visit Admit Date Fibromyalgia syndrome April 18, 2025 1:5 9pm Overweight April 18, 2025 1:59p m Chronic venous insufficiency of lower ex tremity July 06, 2025 10:58am Colon polyps July 06, 2025 10:58am Hypothyroid July 06, 2025 10:58am Medicare annual wellness visit, subseque nt July 06, 2025 10:58am SUNIL (obstructive sleep apnea) July 06, 2025 10:58am Screening mammogram for breast cancer Se ptember 2024 10:58am Allergies, Adverse Reactions, Alerts Allergen Type Severity Reaction Last Updated Verified Status adhesive Allergy Unknown Unknown Reaction April 18, 2025 2:13pm Yes Active adhesive tape Allergy Unknown Unknown Reaction April 18, 2025 2: 13pm Yes Active Social History Smoking Status Status Start Date End Date Date of Observa tion Never smoked tobacco (finding) June 01, 2023 7:35am Observation Status Observation Response Date of Response Legal Sex Female (finding) Sex Assigned At Female [birth year] Family History Relationship Condition Age at Onset Recorded Date/T parag grandparent Malignant neoplasm of colon Unknown mother Malignant neoplasm of breast Unknown Malignant neoplasm Unknown Diabetes mellitus Unknown Problems Active Problems Medical Problem Onset Date Status Comments Intermittent paresthesia of hand and foot Unknown Active Chronic venous insufficiency of lower extremity Unknow n Active Medicare annual wellness visit, subsequent Unknown Active SUNIL (obstructive sleep apnea) Unknown Active AHI 40 w/ Psat 70% Primary osteoarthritis of left hip Unknown Active Screening mammogram for breast cancer Unknown Act jose maria Myalgia Unknown Active Seborrheic keratosis Unknown Active Fibromyalgia syndrome Unknown Active Hypothyroid Unknown Active Overweight Unknown Active 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 Unknown Active Atrophy of muscle of right lower leg Unknown Acti ve Sensorineural hearing loss (SNHL) of both ears Unknown Active Allergic rhinitis Unknown Active Colon polyps Unknown Active Obesity Unknown Active Medications Medication Status Dose Units Route Directions Qty Days St art Date Stop Date End Date Instructions Adherence Valacyclovi r (Valtrex) 1 gram tablet Discont inued 2000 MG PO Twice daily 4 2023 1:00am February 03, 2024 8:22a m Levothyroxi ne 50 mcg tablet Discont inued 0 .ROUTE .COMPLEX May 02, 2024 12:27p m May 06, 2025 10:01 pm TAKE 1 TABLET BY MOUTH DAILY Phentermine (Adipex-P) 37.5 mg tablet Discont inued 37.5 MG PO Daily May 09, 2024 6:08pm Augus t 2023 4:46p m must administer 30 minutes before or 1-2 hours after breakfast Phentermine (Adipex-P) 37.5 mg tablet Discont inued 37.5 MG PO Daily June 08, 2024 4:46pm Septe [facility] 2023 8:38a m must administer 30 minutes before or 1-2 hours after breakfast Phentermine (Adipex-P) 37.5 mg tablet Discont inued 37.5 MG PO Daily 30 2023 8:37am March 20, 2025 6:42p m must administer 30 minutes before or 1-2 hours after breakfast p/u 07/06, start 07/08 Valacyclovi r 1 gram tablet Discont inued 2000 MG PO Twice daily 4 March 01, 2025 12:00a m April 18, 2025 2:13p m Diclofenac Sodium 75 mg tablet,emilia yed release (DR/EC) Discont inued 75 MG PO Twice daily March 22, 2025 12:00a m March 23, 2025 2:32p m Levothyroxi ne 50 mcg tablet Active 0 .ROUTE .COMPLEX May 06, 2025 10:01p m TAKE 1 TABLET BY MOUTH DAILY Unknown Phentermine (Adipex-P) 37.5 mg tablet Discont inued 37.5 MG PO Daily 30 May 22, 2025 1:23pm 2024 3:48p m must administer 30 minutes before or 1-2 hours after breakfast Etodolac 500 mg tablet Discont inued 500 MG PO Twice daily 60 May 25, 2025 5:17pm 2024 11:14 am take w/ food Phentermine (Adipex-P) 37.5 mg tablet Active 37.5 MG PO Daily 30 2024 3:48pm must administer 30 minutes before or 1-2 hours after breakfast Unknown Levothyroxi ne 50 mcg tablet Discont inued 50 MCG PO Daily February 13, 2021 12:00a m May 02, 2024 12:27 pm Cream Base No.47 (Bulk) (Base, Pcca Vanpen) cream Discont inued 1 APPLIC TOPICA L As Directed February 13, 2021 12:00a m February 03, 2024 8:22a m Omeprazole Magnesium 20 mg tablet,emilia yed release (DR/EC) Discont inued 20 MG PO Twice daily 112 56 February 13, 2021 12:00a m Augus t 2022 7:40a m Phentermine 37.5 mg tablet Discont inued 37.5 MG PO Daily February 03, 2024 12:00a m February 03, 2024 10:21 am before breakfast Mupirocin 2 % ointment Active 1 APPLIC TOPICA L Twice daily 22 February 03, 2024 12:00a m Use in right nares bid x 10 days then as needed Unknown Phentermine (Adipex-P) 37.5 mg tablet Discont inued 37.5 MG PO Daily 30 February 03, 2024 12:00a m March 04, 2024 4:45p m must administer 30 minutes before or 1-2 hours after breakfast Phentermine (Adipex-P) 37.5 mg tablet Discont inued 37.5 MG PO Daily 30 March 04, 2024 4:45pm April 04, 2024 10:28 am must administer 30 minutes before or 1-2 hours after breakfast Phentermine (Adipex-P) 37.5 mg tablet Discont inued 37.5 MG PO Daily 30 March 20, 2025 3:03pm April 18, 2025 2:48p m must administer 30 minutes before or 1-2 hours after breakfast Etodolac 500 mg tablet Discont inued 500 MG PO Twice daily 60 30 April 18, 2025 12:00a m Augus t 2024 5:17p m take w/ food Phentermine (Adipex-P) 37.5 mg tablet Discont inued 37.5 MG PO Daily 30 April 18, 2025 2:46pm Augus t 2024 1:23p m must administer 30 minutes before or 1-2 hours after breakfast p/u 04/18, start 04/19 Phentermine (Adipex-P) 37.5 mg tablet Discont inued 37.5 MG PO Daily 30 April 04, 2024 10:27a m May 09, 2024 6:08p m must administer 30 minutes before or 1-2 hours after breakfast Prednisone 20 mg tablet Discont inued 20 MG PO Twice daily 6 3 r 2023 12:00a m March 20, 2025 2:28p m Etodolac 500 mg tablet Active 500 MG PO Twice daily 60 30 2024 11:13a m take w/ food Complies with drug therapy Immunizations Immunization Event Date Not Given Reason Dose Number Crm Business Analyst Lot Number Vaccine Information Statement (VIS) Detail Administration Location COVID-19 mRNA, Comirnaty (Pfizer) March 14, 2021 COVID-19 mRNA, Comirnaty (Pfizer) April 04, 2021 COVID-19 mRNA, Comirnaty (Pfizer) October 05, 2021 Pneumococcal Conjugate Vaccine, 13 valent February 01, 2018 Pneumococcal Polysacc. Vaccine, 23 valent June 24, 2018 Vital Signs Vital Reading Result Reference Range Collection Date/Time Height 64 [in_i] April 18, 2025 2:20pm Weight 78.98 kg April 18, 2025 2:20pm Heart Rate 81 /min 60-100 April 18, 2025 2:20pm Respiratory rate 12 /min 12-April 18, 025 2:20pm BP Systolic 127 mm[Hg] 100-140 April 18, 2025 2:20pm BP Diastolic 80 mm[Hg] 60-100 April 18, 2025 2:20pm BMI (Body Mass Index) 29.9 kg/m2 April 182024 2:20pm Height 64 [in_i] July 06, 2025 11:06am Weight 74.38 kg July 06, 2025 11:06am Heart Rate 91 /min 60-100 July 06, 2025 11:06am Respiratory rate 12 /min 12-24 June 192024 11:06am BP Systolic 150 mm[Hg] 100-140 July 06, 2025 11:06am BP Diastolic 86 mm[Hg] 60-100 July 06, 2025 11:06am BMI (Body Mass Index) 28.1 kg/m2 2024 11:06am Advance Directives Advance Directive Response Recorded Date/ Time Advance Directives No February 06, 021 10:29am Insurance Providers Guarantor Rina Patel Address [address] [facility] [address] Contact Info. Home Phone: Payer Policy Id Subscriber's Name Subscriber Id Effectiv e Date Expiration Date MMO [id number] Rina Patel [id number] [place] [place] HMO [id number] Rina Patel [id number] Medicare [id number] Rina Patel [id number] Encounters Encounter Location(s) Arrival/Admit Date Discharge/Depart Date Provider(s) Departed Physician/Prov ider Office Visit -[facility] April 18, 2025 1:59pm April 18, 2025 2:44pm Vince Villegas DO Departed Physician/Prov ider Office Visit -[facility] July 06, 2025 10:58am July 06, 2025 11:41am Vince Villegas DO Recent Diagnosis Onset Date Admit Date Fibromyalgia syndrome Unknown April 18, 2025 1:59pm Overweight Unknown April 18, 2025 1 :59pm Chronic venous insufficiency of lower extremity Unknown July 06, 2025 10:58am Colon polyps Unknown July 06, 2025 10:58am Hypothyroid Unknown July 06, 2025 10:58am Medicare annual wellness visit, subsequent Unkno wn July 06, 2025 10:58am SUNIL (obstructive sleep apnea) Unknown Se ptember 2024 10:58am Screening mammogram for breast cancer Unknown July 06, 2025 10:58am Assessments Diagnosis Onset Date Resolution Status Admit Date Fibromyalgia syndrome acute Omar 2024 1:59pm Overweight acute April 18, 2025 1:59pm Chronic venous insufficiency of lower extremity acute June 10:58am Colon polyps acute July 062024 10:58am Hypothyroid acute June 10:58am Medicare annual wellness visit, subsequent acute June 10:58am SUNIL (obstructive sleep apnea) acute July 06, 2025 10:58am Screening mammogram for erik st cancer acute July 06, 2025 10:58am Plan of Treatment Author Vince Villegas [facility] Authored April 18, 2025 9:03p m I have instructed this patie nt on a low-fat, high-fiber diet. I have also instructed them to reduce calories, portions sizes, sweet drinks and snacks. I have also recommended they exercise for 30 minutes, 3-5 times weekly. They are aware of the comorbid conditions associated with excessive weight: Diabetes, HTN, Hyperlipidemia, CAD and arthritis. Initiated Adipex - discontinue immediately for symptoms of CP, palpitations, tremors or insomnia Manifests as diffuse pain, not localizing to any specific joint or muscle. Her joint examination is w/o swelling, erythema or warmth. She c/o stiff and aching sensation, comenting on the inability to stand upright due to tightness in her B/L groin. CRP normal, CBC normal Recommend trial of Etodolac and Tylenol Instructed to increase low impact exercise, recommended aquatic therapy No improvement, refer to PT Author Vince Villegas [facility] Authored July 06, 2025 11:31am I have instructed this patie nt on the recommended lifestyle changes, which includes a low fat, high fiber diet along with a regular exercise routine. I have also reviewed the recommended age-appropriate preventive testing for this patient. I have also reviewed the recommended vaccines for their age and risk factors. This patient is aware of the benefits associated with treatment of SUNIL: With continued use, the patient reduces the risk for CT, CVA, HTN, cardiac dysrhythmias and sudden cardiac deaths. The patient is also aware of the association between SUNIL and morning headaches, daytime somnolence, fatigue and obesity, which also has been improved with continued use. The patient is compliant with treatment, wearing the equipment every night for greater than 4 hours. The patient is instructed to continue use of the CPAP for SUNIL treatment. Continues w/ fatigue Recommended discussing w/ Sleep Clinic staff Check TSH, H/H and BS I have instructed this patient to avoid salt and elevate their lower extremities. I have also recommended use of support stockings. I instructed them to inspect their legs and feet daily for blisters and ulcerations. Clinically euthyroid, monitor TSH yearly Continue Levothyroxine without interruption UTD w/ surveillance scopes, last completed 03/2024 w/ plan to repeat in 3 years She denies any change in bowel habits, melena or hematochezia I have instructed this patient on monthly SBE and recommended yearly mammograms. Future Tests Future scheduled test information is unavailable Pending Tests Test Name Ordered Date Scheduled Date Comprehensive Metabolic Panel July 06 11:26am Future Visits Future appointment information is unavailable Referrals to Other Providers Referral information is unavailable Future Procedures Procedure Name Ordered Date Scheduled Date Complete Blood Count Auto Diff July 06 025 11:26am Thyroid Stimulating Hormone July 06, 2025 11:26am Future Medications Future medication information is unavailable Patient Instructions Patient instructions are unavailable
--- OUTSIDE RECORDS SUMMARY | 2025-07-06 14:14 | XMS_ITS | Clinical Summary ---
Author Organization [facility] Address [address] [place] [address] Phone Care Team Providers Care Heel Gummer Name Role Phone Unavailable Primary Care Provider [...]
--- OUTSIDE RECORDS SUMMARY | 2025-07-06 14:14 | XMS_ITS | Clinical Summary ---
Author Organization [facility] Address [address] [place] [address], [address] [place] [address] Care Team Providers Care Photographic Specialist Name Role Phone Demetrio Ulrich MD Primary [...] 5:18 PM 12/26/2014 4:40 PM Care Teams Photographic Specialist Relationship Specialty Start Date End Date Demetrio Ulrich MD PCP - General Family Medicine 11/16/14
--- OUTSIDE RECORDS SUMMARY | 2025-07-06 14:14 | XMS_ITS | Encounter Summary ---
Author Organization [facility] Address [address] [place] [address], [address] [place] [address] Care Team Providers Care Access Services Assistant Name Role Phone Demetrio Ulrich MD Primary Care Provider Rachelea ble Encounter Details Date Type Department Care Team ([facility] st Contact Info) Description 01/02/2016 PAT Telephone STA Pre-Admit Testing [facility] [place] [address] Linn Milian, RN Social History Tobacco Use [...] on filedocumented in this encounter Care Teams Access Services Assistant Relationship Specialty Start Date End Date Demetrio Ulrich MD PCP - General Family Medicine 11/16/14 documented as of this encounter
--- OUTSIDE RECORDS SUMMARY | 2025-07-06 14:14 | XMS_ITS | Encounter Summary ---
Author Organization [facility] Address [address] [place] [address], [address] [place] [address] Care Team Providers Care Urban Planning Teacher Name Role Phone Demetrio Ulrich MD Primary Care Provider Rachelea ble Encounter Details Date Type Department Care Team (Late st Contact Info) Description 01/08/2016 Post-op Telephone [facility] General Surgery [address] [place] [address] Key Arzate, RN Social History Tobacco Use Types Packs/Day [...] on filedocumented in this encounter Care Teams Urban Planning Teacher Relationship Specialty Start Date End Date Demetrio Ulrich MD PCP - General Family Medicine 11/16/14 documented as of this encounter
--- OUTSIDE RECORDS SUMMARY | 2025-07-06 14:14 | XMS_ITS | Encounter Summary ---
Author Organization [facility] Address [address] [place] [address] Care Team Providers Care Skein Mercerizing Machine Operator Name Role Phone Vince Villegas Primary Care Provider [phone] Source Comments In the event this information is protected by the Federal Confidentiality of Alcohol and Drug AbusePatient Records regulations: The Federal rules restrict any use of the information to criminally investigate or prosecute any alcohol or drug abuse patient.[facility] Encounter Details Date Type Department Care Team (Late st Contact Info) Description 2021 [place] [address] Provider, [facility] Medicare Coverage of Physical Exams [...] N ot on file 09/25/2020 Data from: [email or web address]/. Last address used for calculation Not on [...] on filedocumented in this encounter Care Teams Skein Mercerizing Machine Operator Relationship Specialty Start Date End Date Vince Villegas DO [address] [place] [address] PCP - General Internal Medicine 05/19/19 documented as of this encounter
--- OUTSIDE RECORDS SUMMARY | 2025-07-06 14:14 | XMS_ITS | Encounter Summary ---
Author Organization [facility] Address [address] [place] [address] Care Team Providers Care Straightedge Man Name Role Phone Brent Villegas Primary Care Provider [phone] Vince Villegas DO Primary Care Provider [phone] Source Comments In the event this information is protected by the Federal Confidentiality of Alcohol and Drug AbusePatient Records regulations: The Federal rules restrict any use of the information to criminally investigate or prosecute any alcohol or drug abuse patient.[facility] Encounter Details Date Type Department Care Team (Late st Contact Info) Description 07/17/2017 Patient Msg Neurology [address] [id number] Edinson Beltran FORWARDING ADDRESS RE: Appointment Cancellation [...] on filedocumented in this encounter Care Teams Straightedge Man Relationship Specialty Start Date End Date Brent Villegas [address] [place] [address] PCP - General 01/26/01 05/18/19 Vince Villegas DO [address] [place] [address] PCP - General Internal Medicine 05/19/19 documented as of this encounter
--- OUTSIDE RECORDS SUMMARY | 2025-07-06 14:14 | XMS_ITS | Clinical Summary ---
Author Organization [email or web address] Address [id number] [address] [place] [address] Care Team Providers Care Automatic Buffer Name Role Phone Vince Villegas DO Primary Care Provider [phone] Allergies No known active allergies Medications progesterone [...] on file Insurance [employer] Care Teams Automatic Buffer Relationship Specialty Start Date End Date Vince Villegas DO [address] [place] [address] PCP - General 04/29/13
--- OUTSIDE RECORDS SUMMARY | 2025-07-06 14:14 | XMS_ITS | Encounter Summary ---
Author Organization [facility] Address [address] [place] [address] Care Team Providers Care Reimbursement Counselor Name Role Phone Brent Villegas Primary Care Provider [phone] Vince Villegas DO Primary Care Provider [phone] Source Comments In the event this information is protected by the Federal Confidentiality of Alcohol and Drug AbusePatient Records regulations: The Federal rules restrict any use of the information to criminally investigate or prosecute any alcohol or drug abuse patient.[facility] Encounter Details Date Type Department Care Team (Late st Contact Info) Description 03/06/2017 Patient Msg Otolaryngology [address] [place] [address] Rosy Blue APRN.[facility] [address] [place] [address] results Social History Tobacco Use Types [...] on filedocumented in this encounter Care Teams Reimbursement Counselor Relationship Specialty Start Date End Date Brent Villegas [address] [place] [address] PCP - General 01/26/01 05/18/19 Vince Villegas DO [address] [place] [address] PCP - General Internal Medicine 05/19/19 documented as of this encounter
--- OUTSIDE RECORDS SUMMARY | 2025-07-06 14:14 | XMS_ITS | Clinical Summary ---
Author Organization [facility] Address [address] [place] [address] Care Team Providers Care Hemodialysis Technician Name Role Phone Vince Villegas Primary Care Provider [phone] Allergies Active Allergy Reactions Criticality Noted Date [...] Description 07/25/2025 1:00 PM EDT Office Visit [facility] [address] [place] [address] Sabine Christian APRN-LAYOUT OPERATOR [address] [place] [address] Health Maintenance Due Date Last Done Comments CT Colonography 1956 Colonoscopy 1956 Colorectal Cancer Screening 1955 FIT-DNA 1956 FIT 1956 FOBT 1956 Sigmoidoscopy 1956 Mammogram 1996 Pneumococcal Vaccine: 65+ Ye ars (3 of 3 - PCV20 or PCV21) 06/24/2023 06/24/2018, 02/01/2018 Influenza Vaccine (#1) 2025 Insurance MEDICARE [employer] Care Teams Hemodialysis Technician Relationship Specialty Start Date End Date Vince Villegas DO PCP - General Internal Medicine 06/03/23
--- OUTSIDE RECORDS SUMMARY | 2025-07-06 14:14 | XMS_ITS | Clinical Summary ---
Author Organization [facility] [place] [facility] Address [address] [place] [address] Care Team Providers Care Pipeline Gang Supervisor Name Role Phone Vince Villegas Primary Care Provider [phone] Allergies Active Allergy Reactions Criticality Noted Date [...] (12/24/2017): Added automatically from request for surgery [id number] Sensorineural hearing loss, bilateral 04/09/2017 Tinnitus 04/09/2017 [...] is lower risk 9 11/01/2024 Data from: https://www.[email or web address].medicine.[email or web address]/. Last address used for calculation [address] [...] 2001 Shingrix Vaccine (1 of 2) 2006 Medicare Annual Wellness Visit 07/19/2021 Bone Density Screening 2021 Diabetes Screening 06/01/2022 06/01/2019, 1 12/15/2006, 10/06/2007 Pneumococcal Vaccine: 50+ (3 of 3 - PCV20 or PCV21) 06/24/2023 06/24/2018, 02/01/2018 Advance Directive Discussion 10/19/2024 Influenza Vaccine (#1) 2025 RSV Vaccine (1 - 1-dose 75+ series) 2031 Medical Devices Implanted Type Area Neon Electrician Device Identifier Shelf Expiration Date Model / Serial / Lot Implant Nucleus Cochlear Slim Modiolar Electrode [id number] Sterile Latex Free - [id number] Implanted:Qty: 1 on 03/01/2018 at [facility] Implant COCHLEAR 12/01/2019 [id number] / [id number] / [id number]-Kind Implant - [id number] Implanted:Qty: 1 on 03/01/[address] [facility] Implant COCHLEAR [id number] / / Description:NUCLEUS S[employer]ESSORS Procedures Procedure Name Priority Date/Time Associated Diagnosis Comments BASIC METABOLIC PANEL Routine 06/01/2019 12:38 PM EDT Lymphocytosis from Last 3 Months or Most Recently Relevant to Health Maintenance Results * (ABNORMAL) BASIC METABOLIC PNL (06/01/2019 12:38 PM EDT) [facility] Glucose 93 74 - 99 mg/dL 06/02/2019 5:51 AM EDT [facility] Comment: The [place] Diabetes Association (ADA) provides guidance for cutoff [...] Standards of Medical Care in Diabetes 2016, [place] Diabetes Association. Diabetes Care. 2016.39(Suppl 1). BUN 10 7 - 21 mg/dL 06/02/2019 5:51 AM EDT [facility] Creatinine 0.63 0.58 - 0.96 mg/dL 06/02/2019 5:51 AM EDT [facility] Sodium 142 136 - 144 mmol/L 06/02/2019 5:51 AM EDT [facility] Potassium 4.4 3.7 - 5.1 mmol/L 06/02/2019 5:51 AM EDT [facility] Chloride 107(H) 97 - 105 mmol/L 06/02/2019 5:51 AM EDT [facility] CO2 23 22 - 30 mmol/L 06/02/2019 5:51 AM EDT [facility] Anion Gap 12 9 - 18 mmol/L 06/02/2019 5:51 AM EDT [facility] Calcium 9.5 8.5 - 10.2 mg/dL 06/02/2019 5:51 AM EDT [facility] eGFR- >60 06/02/2019 5:51 AM EDT [facility] eGFR-All Other Races >60 . 06/02/2019 5:51 AM EDT [facility] Comment: eGFR (Estimated GFR) Units of measure: [...] Talon Lynne DO LABORATORY Final Res ult [facility] [address] [place] [address] [facility] [address] [place] [address] from Last 3 Months or Most Recently Relevant to Health Maintenance Insurance MMO MEDICARE SUPPLEMENT MEDICARE Care Teams Pipeline Gang Supervisor Relationship Specialty Start Date End Date Vince Villegas DO [address] [place] [address] PCP - General Internal Medicine 05/19/19
--- OUTSIDE RECORDS SUMMARY | 2025-07-06 14:14 | XMS_ITS | Encounter Summary ---
Author Organization [facility] Address [address] [place] [address] Care Team Providers Care Geothermal Hvac Technician Name Role Phone BakariVince Primary Care Provider [phone] Source Comments In the event this information is protected by the Federal Confidentiality of Alcohol and Drug AbusePatient Records regulations: The Federal rules restrict any use of the information to criminally investigate or prosecute any alcohol or drug abuse patient.[facility] Encounter Details Date Type Department Care Team (Late st Contact Info) Description 10/27/2024 Patient Msg Head and Neck [place] [address] [place] [id number] Provider, C[facility] 11/01/24 New Appt Time Social [...] N ot on file 09/25/2020 Data from: [email or web address] Last address used for calculation Not [...] on filedocumented in this encounter Care Teams Geothermal Hvac Technician Relationship Specialty Start Date End Date Vince Villegas DO [address] [place] [address] PCP - General Internal Medicine 05/19/19 documented as of this encounter
--- OUTSIDE RECORDS SUMMARY | 2025-07-06 14:21 | XMS_ITS | CCD ---
Author Organization [facility] CliniSyga Care Team Providers Care Tunneller Name Role Phone Kalyan Guzman Attending Provider [phone] Vince Villegas Primary Care Provider [phone] SHERYL, DR JOEL Admitting Unavailable SHERYL, DR JOEL Attending Unavailable SHERYL, DR JOEL Primary Care Unavailable SHERYL, DR JOEL Consulting Unavailable SHERYL, DR JOEL Admitting Unavailable SHERYL, DR JOEL Attending Unavailable SHERYL, DR JOEL Primary Care Unavailable SHERYL, DR JOEL Consulting Unavailable ZIEBER, DR ALIS Ly Consulting Unavailable JAROD, DR [...] Attending Unavailable SUE, ERIN P Referring Unavailable PORFIRIOYFLACO Attending Unavailable SUE ERIN P Referring Unavailable KAREL CHINCHILLA Attending Unavailable JJ MOTA Referring Unavailable HANH WRIGHT Attending Unavailable SUE, ERIN P Referring Unavailable PORFIRIOYFLACO Attending Unavailable SUE, ERIN P Referring Unavailable STACI COLLAZO Attending Unavailable VINCE VILLEGAS Referring Unavailable HANH WRIGHT Attending Unavailable HANH WRIGHT Attending Unavailable ERIN ANTHONY P Referring Unavailable HANH WRIGHT Attending Unavailable JJ MOTA Referring Unavailable GERALDINE CHRISTIAN Attending Unavailable Vince Villegas MD Primary Care Provider Vince Villegas DO Shahzad Primary Care Provider VINCE VILLEGAS Primary Care Unavailable EDA MALAGON Attending Unavailable VINCE VILLEGAS Referring Unavailable VINCE VILLEGAS Primary Care Unavailable SARAVANAN ALCALA Attending Unavailable VINCE VILLEGAS Referring Unavailable VINCE VILLEGAS Primary Care Unavailable DRAKE RIVAS Attending Unavailable Sheryl , Vince Primary Care Provider [phone] Sheryl MONTOYA, Vince Attending Provider Sheryl Vince Primary Care Provider [phone] Sheryl MONTOYA, Vince Attending Provider [phone] Allergies Allergy Classification Reported Allergen(s) Allergy Type Date of Onset Reaction(s) Facility (11 sources) Adhesive agent Drug allergy 5 Unknown, Unknown Reaction [facility] (8 sources) Adhesive Tape Drug allergy Unknown [facility] Other (11 sources) oxyCODONE; Translations: [OXYCODONE] Drug Allergy 7 Vomiting [facility] (6 sources) Wound Dressing Adhesive Drug Allergy 3 Unknown [facility] (4 sources) bandaids [Other] Propensity to adverse reactions 7 [facility] (1 source) OTHER; Translations: [OTHER] Propensity to adverse reactions (disorder) 7 [facility] (3 sources) Adhesive Tape Allergy to substance 5 Unknown Reaction [facility] Medications Current Medications Medication Drug Class(es) Dates Sig (Normalized) Sig (Original) Acetaminophen / Caffeine (4 sources) Central Nervous System Stimulant, Methylxanthine ACETAMINOPHEN/CA FFEINE (EXCEDRIN TENSION HEADACHE ORAL) Take by mouth as needed. Active etodolac 500 mg oral tablet (3 sources) Nonsteroidal Anti-inflammatory Drug Start: 04-18-2025 End: 07-06-2025 take 1 tablet by mouth twice daily Etodolac 500 mg tablet Active 500 MG PO Twice daily 60 July 06, 2025 11:13am take w/ food Complies with drug therapy Hormone Cream Base cream (6 sources) Start: 10-19-2017 Hormone Cream Base cream 10/19/2017 Active levothyroxine sodium 0.05 mg oral tablet (20 sources) l-Thyroxine Start: 05-02-2024 End: 05-06-2025 take 1 tablet by mouth once daily Start: 02-13-2021 End: 05-02-2024 take 1 tablet by mouth once daily Levothyroxine 50 mcg tablet Discontinued 50 MCG PO Daily February 13, 2021 12:00am May 02, 2024 12:27pm Start: 02-25-2018 End: 11-17-2024 levothyroxine (SYNTHROID) 10 0 mcg tablet Take 100 mcg by mouth. 02/25/2018 11/17/2024 Discontinued take 1 capsule by mo [facility] once daily before breakfast levothyroxine 25 mcg cap Take 25 mcg by mouth daily before breakfast. Active take 1 tablet by theresa once daily Levothyroxine Sodium 50 mcg TAKE 1 TABLET BY MOUTH DAILY for 30 Active mupirocin 0.02 mg/mg topical ointment (5 sources) RNA Synthetase Inhibitor Antibacterial Start: 11-08-2024 mupirocin (BACTROBAN ) 2 % ointment Apply to affected area two times a day. 15 g 11/08/2024 Active Start: 02-03-2024 progesterone 100 mg oral capsule (4 sources) Progesterone End: 11-17-2024 take 1 capsule by mouth once daily progesterone micronized 100 mg capsule Take 100 mg by mouth once daily. 11/17/2024 Discontinued triamcinolone acetonide 1 mg/ml topical cream (12 [...] Drug Class(es) Dates Sig (Normalized) Sig (Original) cephalexin 500 mg oral capsule (1 source) Cephalosporin Antibacterial Start: 11-08-2024 End: 11-15-2024 take 1 capsule by mouth twice daily cephALEXin (KEFLEX) 500 mg capsule Take 1 capsule by mouth two times a day for 7 days. 14 capsule 11/08/2024 11/15/2024 Cream Base No.47 (Bulk) (Base, Pcca Vanpen) cream (5 sources) Start: 02-13-2021 End: 02-03-2024 Cream Base No.47 (Bulk) (Base, Pcca Vanpen) cream Discontinued 1 APPLIC TOPICAL As Directed February 13, 2021 12:00am February 03, 2024 8:22am Start: 02-13-2021 Cream Base No. 47 (Bulk) (Base, Pcca Vanpen) cream Active 1 APPLIC TOPICAL As Directed February 13, 2021 12:00am diclofenac sodium 75 mg delayed release oral tablet (2 sources) Nonsteroidal Anti-inflammatory Drug Start: 03-22-2025 End: 03-23-2025 take 1 tablet by mouth twice daily Diclofenac Sodium 75 mg tablet,delayed release (DR/EC) Discontinued 75 MG PO Twice daily March 22, 2025 12:00am March 23, 2025 2:32pm omeprazole 20 mg delayed release oral tablet (4 sources) Proton Pump Inhibitor Start: 02-13-2021 End: 06-01-2023 take 1 tablet by mouth twice daily Omeprazole Magnesium 20 mg tablet,delayed release (DR/EC) Discontinued 20 MG PO Twice daily 112 56 February 13, 2021 12:00am June 01, 2023 7:40am Start: 02-13-2021 End: 06-01-2023 take 20 mg by mouth twice daily Omeprazole Magnesium Discontinued 20 MG PO Twice daily 112 56 February 13, 2021 12:00am June 01, 2023 7:40am Omeprazole Magnesium 20 mg tablet,delayed release (DR/EC) (1 source) Start: 02-13-2021 End: 06-01-2023 take 1 tablet by mouth twice daily Omeprazole Magnesium 20 mg tablet,delayed release (DR/EC) Discontinued 20 MG PO Twice daily 112 56 February 13, 2021 12:00am June 01, 2023 7:40am phentermine hydrochloride 37.5 mg oral tablet (20 sources) Sympathomimetic Amine Anorectic Start: 04-13-2023 End: 06-23-2025 take 1 tablet by mouth once daily 30 minutes after breakfast Phentermine (Adipex-P) 37.5 mg tablet Discontinued 37.5 MG PO Daily 30 April 04, 2024 10:27am May 09, 2024 6:08pm must administer 30 minutes before or 1-2 hours after breakfast predniSONE 20 mg oral tablet (3 sources) Start: 08-11-2024 End: 03-20-2025 take 1 tablet by mouth twice daily Prednisone 20 mg tablet Discontinued 20 MG PO Twice daily 6 August 11, 2024 12:00am March 20, 2025 2:28pm valACYclovir 1000 mg oral tablet (6 sources) Herpesvirus Nucleoside Analog DNA Polymerase Inhibitor, Herpes Simplex Virus Nucleoside Analog DNA Polymerase Inhibitor, Herpes Zoster Virus Nucleoside Analog DNA Polymerase Inhibitor Start: 03-01-2025 End: 04-18-2025 Valacyclovir 1 gram tablet Discontinued 2000 MG PO Twice daily 4 March 01, 2025 12:00am April 18, 2025 2:13pm Start: 12-11-2023 End: 02-03-2024 Valacyclovir (Valtrex) 1 gra m tablet Discontinued 2000 MG PO Twice daily 4 December 11, 2023 1:00am February 03, 2024 8:22am Problems Active Problems Problem Classification Problem Date [...] Translations: [Chronic tension-type headache, intractable] 07-21-2024 Chronic Headache; including migraine (10 sources) Headache; Translations: [Headache] Onset: 7 Resolved: 8 02-23-2018 Episodic Inflammation; infection of eye (except that caused by tuberculosis or sexually transmitteddisease) (1 source) Acute atopic conjunctivitis, unspecified eye Episodic Malaise and fatigue (5 sources) Fatigue; Translations: [Other fatigue] 03-20-2025 Episodic Osteoarthritis (7 sources) Osteoarthritis of left hip joint; Translations: [Unilateral primary osteoarthritis, left hip] 08-11-2024 Chronic Other and unspecified benign neoplasm (2 sources) Melanocytic nevus of trunk; Translations: [Melanocytic nevi of trunk] 07-25-2024 Episodic Other and unspecified benign neoplasm (4 sources) Polyp of colon; Translations: [Polyp of colon] 06-18-2024 Episodic Other circulatory disease (2 sources) Spider nevus; Translations: [Nevus, non-neoplastic] 07-25-2024 Episodic Other connective tissue disease (2 sources) Muscle atrophy; Translations: [Muscle wasting and atrophy, not elsewhere classified, other site] 06-21-2024 Episodic Other connective tissue disease (2 sources) Spasm; Translations: [Other muscle spasm] 06-21-2024 Episodic Other connective tissue disease (5 sources) Muscle pain; Translations: [Myalgia, unspecified site] 03-20-2025 Episodic Other connective tissue disease (3 sources) Iliotibial band friction syndrome; Translations: [Iliotibial band syndrome, right leg] 08-11-2024 Episodic Other connective tissue disease (3 sources) Atrophy of muscle of right lower leg; Translations: [Muscle wasting and atrophy, not elsewhere classified, right lower leg] 04-04-2024 Episodic Other connective tissue disease (1 source) Myalgia, unspecified site; Translations: [Myalgia and myositis, unspecified] 03-20-2025 Episodic Other connective tissue disease (2 sources) Fibromyalgia; Translations: [Fibromyalgia] 04-18-2025 Episodic Other diseases of veins and lymphatics (4 sources) Venous insufficiency of leg; Translations: [Venous insufficiency (chronic) (peripheral)] 02-03-2024 Episodic Other ear and sense organ disorders (20 sources) Sensorineural hearing loss, bilateral; Translations: [Sensorineural hearing loss, bilateral] Onset: 7 04-09-2017 Chronic Other ear and sense organ disorders (6 sources) Cochlear prosthesis in situ; Translations: [Cochlear implant status] Onset: 8 03-29-2018 Chronic Other ear and sense organ disorders (1 source) Cellulitis of left external ear; Translations: [Cellulitis of left external ear] 11-17-2024 Episodic Other gastrointestinal disorders (10 sources) Dysphagia; Translations: [Dysphagia, unspecified] Episodic Other gastrointestinal disorders (2 sources) Other specified diseases of intestine; Translations: [Other specified diseases of intestine] Onset: 3 Episodic Other nervous system disorders (2 sources) Numbness and tingling sensation of skin; Translations: [Anesthesia of skin] 07-21-2024 Episodic Other nervous system disorders (3 sources) Transient paresthesia; Translations: [Paresthesia of skin] 06-21-2024 Episodic Other non-traumatic joint disorders (2 sources) Hip pain; Translations: [Pain in left hip] 08-11-2024 Episodic Other nutritional; endocrine; and metabolic disorders (9 sources) Body mass index 30+ - obesity; Translations: [Body mass index (BMI) 30.0-30.9, adult] Chronic Other nutritional; endocrine; and metabolic disorders (13 sources) Obesity; Translations: [Other obesity due to excess calories] 02-03-2024 Chronic Other nutritional; endocrine; and metabolic disorders (1 source) Obesity, unspecified; Translations: [Obesity, unspecified] 03-20-2025 Chronic Other nutritional; endocrine; and metabolic disorders (13 sources) Overweight; Translations: [Overweight] 04-13-2025 Episodic Other nutritional; endocrine; and metabolic disorders (2 sources) Overweight Episodic Other screening for suspected conditions (not mental disorders or infectious disease) (8 sources) Encounter for screening mammogram for malignant neoplasm of breast; Translations: [Patient encounter status] Onset: 3 Episodic Other skin disorders (5 sources) Seborrheic keratosis; Translations: [Other seborrheic keratosis] 07-25-2024 Episodic Other skin disorders (2 sources) Sebaceous hyperplasia; Translations: [Other specified follicular disorders] 07-25-2024 Episodic Other skin disorders (2 sources) Folliculitis; Translations: [Follicular disorder, unspecified] 02-03-2024 Episodic Other upper respiratory disease (10 sources) Allergic rhinitis due to pollen; Translations: [Allergic rhinitis due to pollen] Chronic Other upper respiratory disease (1 source) Allergic rhinitis due to pollen Chronic Other upper respiratory disease (3 sources) Allergic rhinitis; Translations: [Allergic rhinitis, unspecified] 03-04-2024 Chronic Residual codes; unclassified (6 sources) Obstructive sleep apnea syndrome; Translations: [Obstructive sleep apnea (adult) (pediatric)] 07-21-2024 Chronic Comment on above: AHI 40 w/ Psat 70% Residual codes; unclassified (1 source) Family history [...] malignant neoplasm of colon] Onset: 3 Unclassified (4 sources) Asymmetrical hearing loss; Translations: [Asymmetrical hearing loss of both ears] Onset: 7 01-28-2017 Viral infection (1 source) COVID-19; Translations: [COVID-19] Onset: 2 Past or Other Problems Problem Classification Problem Date Documented Da te Episodic/Chronic Conditions associated with dizziness or vertigo (4 sources) Vertigo; Translations: [Dizziness and giddiness] Onset: 02-05-2017 02-05-2017 Episodic Essential hypertension (4 sources) Benign essential hypertension; Translations: [Essential (primary) hypertension] Onset: 10-14-2007 Resolved: 10-14-2007 04-28-2024 Chronic Immunizations and screening for infectious disease (4 sources) Encounter for immunization; Translations: [ENCOUNTER FOR IMMUNIZATION] Onset: 03-06-2022 Episodic Neoplasms of unspecified nature or uncertain behavior (6 sources) Neoplasm of uncertain behavior of cecum; 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] Onset: 06-16-2023 06-16-2023 Episodic Other aftercare (5 sources) Cochlear prosthesis in situ; Translations: [Encounter for other specified surgical aftercare] Onset: 03-30-2018 03-30-2018 Episodic Other ear and sense organ disorders (4 sources) Tinnitus; Translations: [Tinnitus, unspecified ear] Onset: 04-09-2017 04-09-2017 Episodic Results Test Name Value Interpretation Reference Range Facility Basophils Auto (Bld) [#/Vol] on 03-22-2025 Basophils (Bld) [#/Vol] 0.1 10 3/uL 0.0-0.1 [facility] Basophils/100 WBC Auto (Bld) on 03-22-2025 Basophils/100 WBC (Bld) 1.1 % 0.2-2.0 [facility] Eosinophils/100 WBC Auto (Bl d)on 03-22-2025 Eosinophils/100 WBC (Bld) 1.4 % 0.9-7.0 [facility] Erythrocyte distribution wid th Auto (RBC) [Ratio]on 03-22-2025 Erythrocyte distribution width (RBC) [Ratio] 13.2 % 11.0-15.0 [facility] Estimated glomerular filtrat ion rate (GFR) non- Americanon 03-22-2025 GFR/1.73 sq M.predicted among non-blacks MDRD (S/P/Bld) [Vol rate/Area] mL/min/{1.73_m2} >=60 mL/min/1.73m 2 [facility] Globulin Calc (S) [Mass/Vol] on 03-22-2025 Globulin (S) [Mass/Vol] 3.4 g/dL [facility] Hematocrit Auto (Bld) [Volum e fraction]on 03-22-2025 Hematocrit (Bld) [Volume fraction] 40.0 % 36.0-48.0 [facility] Hemoglobin [Mass/volume] in Bloodon 03-22-2025 Hemoglobin (Bld) [Mass/Vol] 12.8 g/dL 12.0-16.0 [facility] Laboratory - Chemistry and C hemistry - challengeon 03-22-2025 Albumin [Mass/Vol] 3.5 g/dL 3.4-5.0 [facility] ALP [Catalytic activity/Vol] 98 U/L 46-116 [facility] ALT [Catalytic activity/Vol] 14 U/L 14-59 [facility] AST [Catalytic activity/Vol] 17 U/L 15-37 [facility] Bilirubin [Mass/Vol] 0.4 mg/dL 0.2-1.0 [facility] Calcium [Mass/Vol] 9.4 mg/dL 8.5-10.1 [facility] Chloride [Moles/Vol] 109 mmol/L High 98-107 [facility] CO2 [Moles/Vol] 25.4 mmol/L 21.0-32.0 [facility] Creatinine [Mass/Vol] 0.80 mg/dL 0.55-1.02 [facility] GFR/1.73 sq M.predicted MDRD (S/P/Bld) [Vol rate/Area] mL/min/{1.73_m2} >=60 mL/min/1.73m 2 [facility] Glucose [Mass/Vol] 104 mg/dL 74-106 [facility] Potassium [Moles/Vol] 4.1 mmol/L 3.5-5.1 [facility] Protein [Mass/Vol] 6.9 g/dL 6.4-8.2 [facility] Sodium [Moles/Vol] 145 mmol/L 136-145 [facility] TSH Qn 1.089 m[IU]/L 0.358-3.740 [facility] Urea nitrogen [Mass/Vol] 24.0 mg/dL High 7.0-18.0 [facility] Urea nitrogen/Creatinine [Mass ratio] 30.0 mg/mg [facility] Laboratory - Hematology and Cell countson 03-22-2025 Immature granulocytes/100 WBC (Bld) 0.3 % 0.0-0.5 [facility] Leukocytes [#/volume] correc rajesh for nucleated erythrocytes in Blood by Automated counon 03-22-2025 WBC corrected for nucl RBC Auto (Bld) [#/Vol] 6.4 10 3/uL 4.0-11.0 [facility] Lymphocytes Auto (Bld) [#/Vo l]on 03-22-2025 Lymphocytes (Bld) [#/Vol] 1.9 10 3/uL 1.2-3.8 [facility] Lymphocytes/100 WBC Auto (Bl d)on 03-22-2025 Lymphocytes/100 WBC (Bld) 29.9 % 20.5-60.0 [facility] MCH Auto (RBC) [Entitic mass ]on 03-22-2025 MCH (RBC) [Entitic mass] 28.8 pg 26.7-34.0 [facility] MCHC Auto (RBC) [Mass/Vol]on 03-22-2025 MCHC (RBC) [Mass/Vol] 32.0 g/dL 29.9-35.2 [facility] MCV Auto (RBC) [Entitic vol] on 03-22-2025 MCV (RBC) [Entitic vol] 89.9 fL 81.0-99.0 [facility] Monocytes Auto (Bld) [#/Vol] on 03-22-2025 Monocytes (Bld) [#/Vol] 0.8 10 3/uL 0.3-0.8 [facility] Monocytes/100 WBC Auto (Bld) on 03-22-2025 Monocytes/100 WBC (Bld) 11.7 % 1.7-12.0 [facility] Neutrophils Auto (Bld) [#/Vo l]on 03-22-2025 Neutrophils (Bld) [#/Vol] 3.6 10 3/uL 1.4-6.5 [facility] Neutrophils/100 WBC Auto (Bl d)on 03-22-2025 Neutrophils/100 WBC (Bld) 55.6 % 43.0-75.0 [facility] No Panel Informationon 03-22 C-Reactive Protein, Quantitative <0.50 mg/dL <=0.50 [facility] Eosinophils # (Auto) 0.1 10 3/uL 0.0-0.7 [facility] Immature Granulocyte # (Auto) 0.02 10 3/uL 0.00-0.03 [facility] Platelet mean volume Auto (B ld) [Entitic vol]on 03-22-2025 Platelet mean volume (Bld) [Entitic vol] 9.1 fL Low 9.5-13.5 [facility] Platelets Auto (Bld) [#/Vol] on 03-22-2025 Platelets (Bld) [#/Vol] 189 10 3/uL 150-450 [facility] RBC Auto (Bld) [#/Vol]on RBC (Bld) [#/Vol] 4.45 10 6/uL 4.20-5.40 [facility] Serum or plasma albumin/glob ulin mass ratioon 03-22-2025 Albumin/Globulin [Mass ratio] 1.0 {ratio} [facility] Serum or plasma anion gap de terminationon 03-22-2025 Anion gap [Moles/Vol] 14.7 mmol/L [facility] CNOVon 11-16-2024 CNOV Office Visit (OTOLIN) ---- SHARRI ATWOOD ([id number]) 1955 F Date Time Provider Department 11/16/24 1:25 PM DRAKE RIVAS During your visit today, we recorded the following information about you: Drake Rivas PA-C 11/16/2024 2:27 PM Signed History of Present Illness Ms. SHARRI ATWOOD is a 69 year old female S/p left sided cochlear implant by Dr. Velasco in 2018. Chief Complaint: Follow-up for left CI magnet skin breakdown Last seen 11/08/[address] Alcala who prescribed a 7 day course of keflex and mupirocin ointment. Dr. Veras, [facility] also reduced her magnet strength to a 2 and put foam tape over it. She had not been evaluated by [facility] otology since 2018 previously. She reports over the past ~year has been experiencing pain and redness at the magnet site interfering with her ability to wear the cochlear implant. Since last seen, Reports rapid improvement in pain and redness. She put the magnet on today and is not experiencing any pain, the magnet is staying in place. ALLERGIES Allergen Reactions Bandaids [Other] Oxycodone Vomiting Current Outpatient Medications on File Prior to Visit Medication Sig mupirocin (BACTROBAN) 2 % ointment Apply to affected area two times a day. levothyroxine 25 mcg cap Take 25 mcg by mouth daily before breakfast. ACETAMINOPHEN/CAFFE INE (EXCEDRIN TENSION HEADACHE ORAL) Take by mouth as needed. levothyroxine (SYNTHROID) 100 mcg tablet Take 100 mcg by mouth. progesterone micronized 100 mg capsule Take 100 mg by mouth once daily. No current facility-administer ed medications on file prior to visit. Objective: There were no vitals taken for this visit. Appearance: Non-syndromic, cooperative and calm Communication: Voice has adequate volume; there is no stridor Head/Face: head and facial contours are symmetric Facial nerve 1/6 bilateral Skin: no skin lesions or scarring on face Ears: AD Magnet site skin is healthy and not erythematous or swollen, there is a small area of central crusting that appears reduced from the before picture I was shown on the patient's phone. Nose: external exam with straight profile Oral Cavity: Normal dentition Oropharynx: Uvula hangs midline; mucosa is pink and moist; tonsils present Neck: no LAD; thyroid without masses or enlargement Lymphatic: No lymphadenopathy or masses Neuro/Psych.: Alert and Oriented x 3 Cranial nerves intact Assessment: Z48.89, Z96.21 Cochlear implant follow-up (primary encounter diagnosis) H90.3 Sensorineural hearing loss, bilateral Skin breakdown resolving with appropriate magnet strength. Plan: 1. Follow-up within 2-3 years to stay medically established with Dr. Alcala. Patient is medically clear for any device upgrade or replacement parts. Drake Rivas PA-C Otology Medical Decision Making: Problems: Low: Stable chronic illness Risk: Minimal: Minimal risk from testing/treatment Medical Decision Making Level: 2 - Straightforward Drake Rivas PA-C 11/16/2024 1:[address] Saravanan Alcala's name for your current cochlear implant surgeon from any paperwork from cochlear Allergies As of Date: 11/16/2024 Noted Allergy Reaction bandaids [Other] 08/27/2007 OXYCODONE 10/11/2007 11 - Vomiting Date Reviewed: 11/16/2024 Reviewed by: Sridevi Clement MA - Fully Assessed Reason for Visit: New Patient [172] Primary Visit Diagnosis:Cochlear implant follow-up [Z48.89, Z96.21] Other Visit Diagnosis:Sensorine ural hearing loss, bilateral [H90.3] Prescriptions as of 11/16/2024 - mupirocin (BACTROBAN) 2 % ointment Apply to affected area two times a day. - levothyroxine 25 mcg cap Take 25 mcg by mouth daily before breakfast. - levothyroxine (SYNTHROID) 100 mcg tablet Take 100 mcg by mouth. - ACETAMINOPHEN/CAFFE INE (EXCEDRIN TENSION HEADACHE ORAL) Take by mouth as needed. - progesterone micronized 100 mg capsule Take 100 mg by mouth once daily. Problem List As Of Date 11/16/2024 Noted Resolved BENIGN HYPERTENSION [I10] 10/14/2007 10/14/2007 Asymmetrical hearing loss of both ears [[id number]]01/28/2017 Vertigo [R42] 02/05/2017 Headache [R51.9] 02/05/2017 Headache(784.0) [R51] 02/16/2017 02/23/2018 Sensorineural hearing loss, bilateral [H90.3] 04/09/2017 Tinnitus [H93.19] 04/09/2017 Bilateral sensorineural hearing loss [H90.3] 12/24/2017 Hypothyroidism [E03.9] Cochlear implant in place [Z96.21] 03/29/2018 Cochlear implant follow-up [Z48.89, Z96.21] 03/30/2018 Other instructions from your clinician: Use Dr. Saravanan Alcala's name for your current cochlear implant surgeon from any paperwork from cochlear Encounter Status:Closed by DRAKE RIVAS on 11/16/24 [facility] CNOVon 11-08-2024 CNOV Office Visit (CDISMN) ---- SHARRI ATWOOD ([id number]) 1955 F Date Time Provider Department 11/08/24 1:00 PM [facility] During your visit today, we recorded the following information about you: Eda Malagon AUD 11/08/2024 3:26 PM Signed [facility] [place] [facility] COCHLEAR IMPLANT ADULT PROGRAMMING Name: Sharri Atwood [facility]#:[id number] Date of Service: 10/30/2024 Date of : 1955 Age: [age] year old COCHLEAR IMPLANT INFORMATION (see below for all device details) RIGHT ear: Phonak Robeo [id number] [employer] fit and managed at an outside facility. LEFT ear: External Processor Cochlear [employer] [id number] (Nucleus 7) Processor SN [id number] Magnet Strength 2 Internal Device Cochlear CI532 Profile with Slim Modiolar Electrode Array Internal Device SN [id number] Inactive electrodes 1-5, 22-21 (non-auditory percept; pressure) [...] while now. * Previous audiologic evaluation at [facility] on 03/29/2018 was most recent hearing evaluation. She indicated that she has not seen her hearing aid park worker supervisor for programming since 2016. * Microphone covers last changed in early August 2024. * Last Otology visit date: 03/29/2018 * Problems noted with the equipment: recently attempted to replace coil, but spare coil was corroded and when placed on the processor sound was intermittent. She stated that she reached out to [employer] and they sent her a new coil. [...] return for a hearing aid check with chief strategy officer for maintenance and potential programming needs. * [...] Santa, CCC/A copied to: Drake Rivas PA-C. Referring Provider: VINCE VILLEGAS [[id number]] Allergies As of Date: 11/08/2024 Noted Allergy [...] - ceph (more content not included)... Normal [facility] CNOVSPon 11-08-2024 CNOVSP Visit (SP) Office (OTOLMN) ---- SHARRI ATWOOD ([id number]) 1955 F Date Time Provider Department 11/08/24 SARAVANAN ALCALA OTOLPA During your visit today, we recorded the following information about you: Saravanan Alcala MD 11/17/2024 8:49 AM Signed Sharri was seen at the request of Ericka Flores and Donell regarding concerns about her implant site and erythema and irritation over her magnet She reports significant weight loss of approximately 15 lbs or more recently Has not changed magnet strength ON exam, there is some irritation and erythema over the skin that is otherwise intact. No ulcers, no breakdown Recommend the following Apply bacitracin Start Keflex preventively Apply felt disc to magnet Follow up in one week with Drake Allergies As of Date: 11/08/2024 Noted Allergy Reaction bandaids [Other] 08/27/2007 OXYCODONE 10/11/2007 11 - Vomiting Date Reviewed: 07/04/2020 Reviewed by: Malik Higuera - Fully Assessed Primary Visit Diagnosis:Cochlear implant in place [Z96.21] Other Visit Diagnosis:Celluliti s of left external ear [H60.12] Order(s):mupirocin (BACTROBAN) 2 % ointmentApply to affected area two times a day.Disp: 15 gRfl: 0 [] cephALEXin (KEFLEX) 500 mg capsuleTake 1 capsule by mouth two times a day for 7 days.Disp: 14 capsuleRfl: 0 Level of Service: OFFICE/OUTPATIENT ESTABLISHED SF MDM 10 MIN [58198] Prescriptions as of 11/17/2024 - mupirocin (BACTROBAN) 2 % ointment Apply to affected area two times a day. - levothyroxine 25 mcg cap Take 25 mcg by mouth daily before breakfast. - ACETAMINOPHEN/CAFFE INE (EXCEDRIN TENSION HEADACHE ORAL) Take by mouth as needed. Problem List As Of Date 11/08/2024 Noted Resolved BENIGN HYPERTENSION [I10] 10/14/2007 10/14/2007 Asymmetrical hearing loss of both ears [YDR6555]01/28/2017 Vertigo [R42] 02/05/2017 Headache [R51.9] 02/05/2017 Headache(784.0) [R51] 02/16/2017 02/23/2018 Sensorineural hearing loss, bilateral [H90.3] 04/09/2017 Tinnitus [H93.19] 04/09/2017 Bilateral sensorineural hearing loss [H90.3] 12/24/2017 Hypothyroidism [E03.9] Cochlear implant in place [Z96.21] 03/29/2018 Cochlear implant follow-up [Z48.89, Z96.21] 03/30/2018 Encounter Status:Closed by SARAVANAN ALCALA on 11/17/24 [facility] Mustapha 10-25-2024 LES Telephone (MANJINDER) ---- SHARRI ATWOOD ([id number]) 1955 F Date Time Provider Department 10/25/24 DRAKE RIVAS During your visit today, we recorded the following information about you: Tiffanie Cheung 10/25/2024 3:11 PM Signed Patient returned your call and can be reached at: Call patient at: on cell [phone] (home) [phone] (cell) Claus Nicholson, ANETA 10/25/2024 3:27 PM Signed PSS: see the FYI tab and call patient. Mery Mcgowan 10/26/2024 11:17 AM Signed Patient scheduled 11/01 HAC at [facility] for the cochlear and PSS explained that Drake Rivas appointment has needed to get established. Allergies As of Date: 10/25/2024 Noted Allergy Reaction bandaids [Other] 08/27/2007 OXYCODONE 10/11/2007 11 - Vomiting Date Reviewed: 07/04/2020 Reviewed by: Malik Higuera - Fully Assessed Reason for Visit: Patient Question [1477] Prescriptions as of 10/26/2024 - levothyroxine 25 [...] 10/14/2007 Asymmetrical hearing loss of both ears [JAB3829]01/28/2017 Vertigo [R42] 02/05/2017 Headache [R51.9] 02/05/2017 Headache(784.0) [R51] 02/16/2017 02/23/2018 Sensorineural hearing loss, bilateral [H90.3] 04/09/2017 Tinnitus [H93.19] 04/09/2017 Bilateral sensorineural hearing loss [H90.3] 12/24/2017 Hypothyroidism [E03.9] Cochlear implant in place [Z96.21] 03/29/2018 Cochlear implant follow-up [Z48.89, Z96.21] 03/30/2018 Encounter Status:Closed by MERY MCGOWAN on 10/26/[address] [facility] [address] abdomen pelvis w conon CT abdomen pelvis w con [facility] [place] [address] CT Scan Report Signed Patient: Sharri Atwood MR#: [id number] : 1955 Acct:[id number] Age/Sex: 67 / F ADM Date: 06/24/23 Loc: CT Room: Type: [facility] Attending Dr: Kalyan Guzman MD Copies [...] Keenan Jr., D.O.06/24/2023 2:20 PM Dictation Location: [place] [address] Transcribed By: [facility] 06/24/23 1420 Dictated By: Michael Keenan Jr, DO 06/24/23 1418 Signed By: 06/24/23 1420 Normal [facility] Alanine aminotransferase [En zymatic activity/volume] in Serum or PlasmaOrdered By: Kalyan Guzman on 06-01-2023 ALT [Catalytic activity/Vol] 9 U/L 7-52 [facility] Albumin [Mass/volume] in Ser um or Plasma by Bromocresol green (BCG) dye binding methoOrdered By: Kalyan Guzman on 06-01-2023 Albumin BCG dye [Mass/Vol] 4.4 g/dL 3.5-5.7 [facility] Alkaline phosphatase [Enzyma tic activity/volume] in Serum or PlasmaOrdered By: Kalyan Guzman on 06-01-2023 ALP [Catalytic activity/Vol] 72 U/L 34-104 [facility] Aspartate aminotransferase [ Enzymatic activity/volume] in Serum or PlasmaOrdered By: Kalyan Guzman on 06-01-2023 AST [Catalytic activity/Vol] 22 U/L 13-39 [facility] Band form neutrophils/100 WB C Manual cnt (Bld)Ordered By: Kalyan Guzman on 06-01-2023 Band form neutrophils/100 WBC (Bld) 2 % 0-5 [facility] Basophils Auto (Bld) [#/Vol] Ordered By: Kalyan Guzman on 06-01-2023 Basophils (Bld) [#/Vol] N/A F [facility] Basophils/100 WBC Auto (Bld) Ordered By: Kalyan Guzman on 06-01-2023 Basophils/100 WBC (Bld) N/A F [facility] Basophils/100 WBC Manual cnt (Bld)Ordered By: Kalyan Guzman on 06-01-2023 Basophils/100 WBC (Bld) 1 % 0-2 F [facility] Bilirubin.total [Mass/volume ] in Serum or PlasmaOrdered By: Kalyan Guzman on 06-01-2023 Bilirubin [Mass/Vol] 0.9 mg/dL 0.3-1.0 [facility] Calcium [Mass/volume] in Ser um or PlasmaOrdered By: Kalyan Guzman on 06-01-2023 Calcium [Mass/Vol] 9.4 mg/dL 8.6-10.3 [facility] Carbon dioxide, total [Moles /volume] in Serum or PlasmaOrdered By: Kalyan Guzman on 06-01-2023 CO2 [Moles/Vol] 25.2 mmol/L 21.0-31.0 [facility] Chloride [Moles/volume] in S javier or PlasmaOrdered By: Kalyan Guzman on 06-01-2023 Chloride [Moles/Vol] 108 mmol/L 98-107 [facility] Comprehensive Metabolic Pane luis enrique 06-01-2023 Albumin [Mass/Vol] 4.4 g/dL Normal 3.5-5.7 [facility] Comment on above: Performed By: #### D IFF CBC, CEA, CMP #### [facility] [address] [place] [address] Albumin/Globulin [Mass ratio] 1.6 {ratio} Normal [facility] Comment on above: Performed By: #### D IFF CBC, CEA, CMP #### [facility] [address] ALP [Catalytic activity/Vol] 72 U/L Normal 34-104 [facility] Comment on above: Performed By: #### D IFF CBC, CEA, CMP #### [facility] [address] ALT [Catalytic activity/Vol] 9 U/L Normal 7-52 [facility] Comment on above: Performed By: #### D IFF CBC, CEA, CMP #### [address] Anion gap [Moles/Vol] 10.9 mmol/L Normal 6.0-15.0 [facility] Comment on above: Performed By: #### D IFF CBC, CEA, CMP #### [address] AST [Catalytic activity/Vol] 22 U/L Normal 13-39 [facility] Comment on above: Performed By: #### D IFF CBC, CEA, CMP #### [address] Bilirubin [Mass/Vol] 0.9 mg/dL Normal 0.3-1.0 [facility] Comment on above: Performed By: #### D IFF CBC, CEA, CMP #### [facility] [address] [place] [address] Calcium [Mass/Vol] 9.4 mg/dL Normal 8.6-10.3 [facility] Comment on above: Performed By: #### D IFF CBC, CEA, CMP #### [address] Chloride [Moles/Vol] 108 mmol/L High 98-107 [facility] Comment on above: Performed By: #### D IFF CBC, CEA, CMP #### [facility] [address] [place] [address] CO2 [Moles/Vol] 25.2 mmol/L Normal 21.0-31.0 [facility] Comment on above: Performed By: #### D IFF CBC, CEA, CMP #### [facility] [address] Creatinine [Mass/Vol] 0.72 mg/dL Normal 0.60-1.20 [facility] Comment on above: Performed By: #### D IFF CBC, CEA, CMP #### [address] Creatinine Clr Calc Pharmacy 68.33 Normal [facility] Comment on above: Result Comment: PERF ORMED BY: [place] [address] CLEANER ESTEE KAPOOR M.D. Performed By: #### D IFF CBC, CEA, CMP #### [address] GFR/1.73 sq M.predicted MDRD (S/P/Bld) [Vol rate/Area] mL/min/{1.73_m2} [facility] Comment on above: Performed By: #### D IFF CBC, CEA, CMP #### [address] Globulin (S) [Mass/Vol] 2.7 g/dL Normal [facility] Comment on above: Performed By: #### D IFF CBC, CEA, CMP #### [address] Glucose [Mass/Vol] 89 mg/dL Normal 70-100 [facility] Comment on above: Result Comment: [place] Glucose Reference Range is dependent on time and content of last meal. Glucose of more than 200 mg/dL in a nonstressed, ambulatory subject supports the diagnosis of Diabetes Mellitus. ADA recommended reference range Performed By: #### D IFF CBC, CEA, CMP #### [address] Potassium [Moles/Vol] 4.1 mmol/L Normal 3.5-5.1 [facility] Comment on above: Performed By: #### D IFF CBC, CEA, CMP #### [facility] [address] Protein [Mass/Vol] 7.1 g/dL Normal 6.4-8.9 [facility] Comment on above: Performed By: #### D IFF CBC, CEA, CMP #### [facility] [address] [place] [address] [place] Sodium [Moles/Vol] 140 mmol/L Normal 136-145 [facility] Comment on above: Performed By: #### D IFF CBC, CEA, CMP #### [facility] [address] Urea nitrogen [Mass/Vol] 14 mg/dL Normal 7-25 [facility] Comment on above: Performed By: #### D IFF CBC, CEA, CMP #### [facility] [address] [place] [address] [place] Creatinine [Mass/volume] in Serum or PlasmaOrdered By: Kalyan Guzman on 06-01-2023 Creatinine [Mass/Vol] 0.72 mg/dL 0.60-1.20 [facility] Diff and CBCon 06-01-2023 Band form neutrophils/100 WBC (Bld) 2 % Normal 0-5 [facility] Comment on above: Performed By: #### D IFF CBC, CEA, CMP #### [facility] [address] [place] [address] [place] Basophils/100 WBC (Bld) 1 % Normal 0-2 [facility] Comment on above: Performed By: #### D IFF CBC, CEA, CMP #### [facility] [address] [place] [address] [place] Eosinophils/100 WBC (Bld) 1 % Normal 1-3 [facility] Comment on above: Performed By: #### D IFF CBC, CEA, CMP #### [facility] [address] [place] [address] [place] Erythrocyte distribution width (RBC) [Ratio] 13.8 % Normal 11.9-15.3 [facility] Comment on above: Performed By: #### D IFF CBC, CEA, CMP #### [address] Hematocrit (Bld) [Volume fraction] 42.6 % Normal 34.0-46.4 [facility] Comment on above: Performed By: #### D IFF CBC, CEA, CMP #### [address] Hemoglobin (Bld) [Mass/Vol] 13.9 g/dL Normal 11.8-15.4 [facility] Comment on above: Performed By: #### D IFF CBC, CEA, CMP #### [address] Lymphocytes/100 WBC (Bld) 22 % Normal 18-42 [facility] Comment on above: Performed By: #### D IFF CBC, CEA, CMP #### [address] MCH (RBC) [Entitic mass] 29.2 pg Normal 24.7-34.3 [facility] Comment on above: Performed By: #### D IFF CBC, CEA, CMP #### [address] MCV (RBC) [Entitic vol] 89.2 fL Normal 80-100 F [facility] Comment on above: Performed By: #### D IFF CBC, CEA, CMP #### [address] Mean Corpuscular HGB Conc 32.8 g/dL Normal 32.0-35.0 [facility] Comment on above: Performed By: #### D IFF CBC, CEA, CMP #### [address] Monocytes/100 WBC (Bld) 20 % High 2-11 [facility] Comment on above: Performed By: #### D IFF CBC, CEA, CMP #### [address] Platelet Estimate Normal Normal Normal [facility] Comment on above: Performed By: #### D IFF CBC, CEA, CMP #### [facility] [address] Platelet mean volume (Bld) [Entitic vol] 7.8 fL Normal 6.3-10.7 [facility] Comment on above: Performed By: #### D IFF CBC, CEA, CMP #### [address] Platelet Morphology Normal Normal Normal [facility] Comment on above: Result Comment: PERF ORMED BY: [place] [address] CLEANER ESTEE KAPOOR M.D. Performed By: #### D IFF CBC, CEA, CMP #### [address] Platelets (Bld) [#/Vol] 157 10*3/uL Normal 150-450 [facility] Comment on above: Performed By: #### D IFF CBC, CEA, CMP #### [address] RBC (Bld) [#/Vol] 4.77 10*6/uL Normal 3.60-5.00 [facility] Comment on above: Performed By: #### D IFF CBC, CEA, CMP #### [address] RBC morphology finding Nom (Bld) Normal Normal Normal [facility] Comment on above: Performed By: #### D IFF CBC, CEA, CMP #### [place] [address] [place] Segmented neutrophils/100 WBC (Bld) 54 % Normal 50-70 [facility] Comment on above: Performed By: #### D IFF CBC, CEA, CMP #### [address] WBC (Bld) [#/Vol] 4.9 10*3/uL Normal 3.8-11.6 [facility] Comment on above: Performed By: #### D IFF CBC, CEA, CMP #### [facility] [address] Eosinophils Auto (Bld) [#/Vo l]Ordered By: Kalyan Guzman on 06-01-2023 Eosinophils (Bld) [#/Vol] N/A [facility] Eosinophils/100 WBC Auto (Bl d)Ordered By: Kalyan Guzman on 06-01-2023 Eosinophils/100 WBC (Bld) N/A [facility] Eosinophils/100 WBC Manual c nt (Bld)Ordered By: Kalyan Guzman on 06-01-2023 Eosinophils/100 WBC (Bld) 1 % 1-3 [facility] Erythrocyte distribution wid th Auto (RBC) [Ratio]Ordered By: Kalyan Guzman on 06-01-2023 Erythrocyte distribution width (RBC) [Ratio] 13.8 % 11.9-15.3 [facility] Globulin Calc (S) [Mass/Vol] Ordered By: Kalyan Guzman on 06-01-2023 Globulin (S) [Mass/Vol] 2.7 g/dL F [facility] Glucose [Mass/volume] in Ser um or PlasmaOrdered By: Kalyan Guzman on 06-01-2023 Glucose [Mass/Vol] 89 mg/dL 70-100 [facility] Comment on above: ADA recommended refe rence rangeRandom Glucose Reference Range is dependent on time and content of last meal. Glucose of more than 200 mg/dL in a nonstressed, ambulatory subject supports the diagnosis of Diabetes Mellitus. Hematocrit Auto (Bld) [Volum e fraction]Ordered By: Kalyan Guzman on 06-01-2023 Hematocrit (Bld) [Volume fraction] 42.6 % 34.0-46.4 [facility] Hemoglobin [Mass/volume] in BloodOrdered By: Kalyan Guzman on 06-01-2023 Hemoglobin (Bld) [Mass/Vol] 13.9 g/dL 11.8-15.4 [facility] Luis Enrique 06-01-2023 L Specimen: [id number] Received: 06/01/23 Status: DERRELL Givenstiffany Num: [id number] Spec Type: Surgical Subm Dr: Kalyan Guzman MD Tissues: A Colon Biopsy (TRANSVERSE POLYP) B Colon Biopsy (DESCENDING POLYP) Procedures: HE/4, Gross/Micro L4/2 Age/ Patient Sex Location Account Attending Physician Sharri Atwood 67/F [id number] Kalyan Guzman MD SPEC NUM: [id number] RECD: 06/01/23 STATUS: DERRELL CATALINO NUM: [id number] TONYA: 06/01/23- DR: Kalyan Guzman MD ENTERED: 06/01/[address] [facility] DR: SPEC TYPE: Surgical DEPT: S ORDERED: HE/4, Gross/Micro L4/2 ORDERED: HE, Gross/Micro L4/2 Pathological Diagnosis A. Colon, transverse, [...] submitted in one cassette labeled B1. Specimen: [id number] Received: 06/01/23 Status: DERRELL Batista Num: [id number] Spec Type: Surgical Subm Dr: Kalyan Guzman MD Tissues: A Colon Biopsy (TRANSVERSE POLYP) B Colon Biopsy (DESCENDING POLYP) Procedures: JJDemetris, Gross/Micro L4/2 Patient: Sharri Atwood [id number] (Continued) Specimen: [id number] Received: 06/01/23 (Continued) Signed (signatur e on file) Mike Chen MD 06/03/23 0952 Specimen: [id number] Received: 06/01/23 Status: DERRELL Givenstiffany Num: [id number] Spec Type: Surgical Subm Dr: Kalyan Guzman MD Tissues: A Colon Biopsy (TRANSVERSE POLYP) B Colon Biopsy (DESCENDING POLYP) Procedures: HE/4, Gross/Micro L4/2 Patient: Sharri Atwood [id number] (Continued) Specimen: [id number] Received: 06/01/23 (Continued) Microscopic Description A. Two H E slides reviewed. The microscopic examination confirms the diagnosis. B. Two H E slides reviewed. The microscopic examination confirms the diagnosis. CPT Codes 67831t two Specimen: [id number] Received: 06/01/23 Status: DERRELL Batista Num: [id number] Spec Type: Surgical Subm Dr: Kalyan Guzman MD Tissues: A Colon Biopsy (TRANSVERSE POLYP) B Colon Biopsy (DESCENDING POLYP) Procedures: JJ/Demetris, Gross/Micro L4/2 Patient: Sharri Atwood [id number] (Continued) Signed (signatur e on file) Mike Chen MD 06/03/23 0952 Normal [facility] Leukocytes [#/volume] correc rajesh for nucleated erythrocytes in Blood by Automated counOrdered By: Kalyan Guzamn on 06-01-2023 WBC corrected for nucl RBC Auto (Bld) [#/Vol] 4.9 10*3/uL 3.8-11.6 [facility] Lymphocytes Auto (Bld) [#/Vo l]Ordered By: Kalyan Guzman on 06-01-2023 Lymphocytes (Bld) [#/Vol] N/A [facility] Lymphocytes/100 WBC Auto (Bl d)Ordered By: Kalyan Guzman on 06-01-2023 Lymphocytes/100 WBC (Bld) N/A [facility] Lymphocytes/100 WBC Manual c nt (Bld)Ordered By: Kalyan Guzman on 06-01-2023 Lymphocytes/100 WBC (Bld) 22 % 18-42 [facility] MCH Auto (RBC) [Entitic mass ]Ordered By: Kalyan Guzman on 06-01-2023 MCH (RBC) [Entitic mass] 29.2 pg 24.7-34.3 [facility] MCHC Auto (RBC) [Mass/Vol]Or dered By: Kalyan Guzman on 06-01-2023 MCHC (RBC) [Mass/Vol] 32.8 g/dL 32.0-35.0 [facility] MCV Auto (RBC) [Entitic vol] Ordered By: Kalyan Guzman on 06-01-2023 MCV (RBC) [Entitic vol] 89.2 fL 80-100 [facility] Monocytes Auto (Bld) [#/Vol] Ordered By: Kalyan Guzman on 06-01-2023 Monocytes (Bld) [#/Vol] N/A F [facility] Monocytes/100 WBC Auto (Bld) Ordered By: Kalyan Guzman on 06-01-2023 Monocytes/100 WBC (Bld) N/A F [facility] Monocytes/100 WBC Manual cnt (Bld)Ordered By: Kalyan Guzman on 06-01-2023 Monocytes/100 WBC (Bld) 20 % 2-11 [facility] Neutrophils Auto (Bld) [#/Vo l]Ordered By: Kalyan Guzman on 06-01-2023 Neutrophils (Bld) [#/Vol] N/A [facility] Neutrophils/100 WBC Auto (Bl d)Ordered By: Kalyan Guzman on 06-01-2023 Neutrophils/100 WBC (Bld) N/A [facility] No Panel InformationOrdered By: Kalyan Guzman on 06-01-2023 Estimated GFR (CKD-EPI) > 60.0 mL/Min [facility] Pharmacy Creatinine Clearance (Chem 68.33 [facility] Nucleated erythrocytes [Pres ence] in Blood by Automated countOrdered By: Kalyan Guzman on 06-01-2023 Nucleated RBC Auto Ql (Bld) N/A [facility] Platelet adequacy [Presence] in Blood by Light microscopyOrdered By: Kalyan Guzman on 06-01-2023 Platelets LM Ql (Bld) Normal Normal [facility] Platelet mean volume Auto (B ld) [Entitic vol]Ordered By: Kalyan Guzman on 06-01-2023 Platelet mean volume (Bld) [Entitic vol] 7.8 fL 6.3-10.7 [facility] Platelet morphology finding [Identifier] in BloodOrdered By: Kalyan Guzman on 06-01-2023 Platelet morphology finding Nom (Bld) Normal Normal [facility] Platelets Auto (Bld) [#/Vol] Ordered By: Kalyan Guzman on 06-01-2023 Platelets (Bld) [#/Vol] 157 10*3/uL 150-450 [facility] Potassium [Moles/volume] in Serum or PlasmaOrdered By: Kalyan Guzman on 06-01-2023 Potassium [Moles/Vol] 4.1 mmol/L 3.5-5.1 [facility] Protein [Mass/volume] in Ser um or PlasmaOrdered By: Kalyan Guzman on 06-01-2023 Protein [Mass/Vol] 7.1 g/dL 6.4-8.9 [facility] RBC Auto (Bld) [#/Vol]Ordere d By: Kalyan Guzman on 06-01-2023 RBC (Bld) [#/Vol] 4.77 10*6/uL 3.60-5.00 [facility] RBC morphologyOrdered By: Barbi hernandezon Megan on 06-01-2023 RBC morphology finding Nom (Bld) Normal Normal [facility] Segmented neutrophils/100 WB C Manual cnt (Bld)Ordered By: Kalyan Guzman on 06-01-2023 Segmented neutrophils/100 WBC (Bld) 54 % 50-70 [facility] Serum or plasma albumin/glob ulin mass ratioOrdered By: Kalyan Guzman on 06-01-2023 Albumin/Globulin [Mass ratio] 1.6 {ratio} [facility] Serum or plasma anion gap de terminationOrdered By: Kalyan Guzman on 06-01-2023 Anion gap [Moles/Vol] 10.9 mmol/L 6.0-15.0 [facility] Serum or plasma carcinoembry onic antigen measurement (mass/volume)Ordered By: Kalyan Gumzan on 06-01-2023 Carcinoembryonic Ag [Mass/Vol] 1.6 ng/mL 0.0-3.0 [facility] Sodium [Moles/volume] in Ser um or PlasmaOrdered By: Kalyan Guzman on 06-01-2023 Sodium [Moles/Vol] 140 mmol/L 136-145 [facility] Urea nitrogen [Mass/volume] in Serum or PlasmaOrdered By: Kalyan Guzman on 06-01-2023 Urea nitrogen [Mass/Vol] 14 mg/dL 7-25 [facility] WBC Auto (Bld) [#/Vol]Ordere d By: Kalyan Guzman on 06-01-2023 WBC (Bld) [#/Vol] 4.9 10*3/uL 3.8-11.6 [facility] MG MAMM SCREEN 3D BALTAZAR CADon 11-05-2022 MG MAMM SCREEN 3D BALTAZAR CAD Patient: SHARRI ATWOOD Exam Date: 11/05/2022 : 1955 Gender:F Ordering : DR VINCE VILLEGAS D.O. Admission #: [id number] Family : Order #: [id number] CLICK HERE TO VIEW EXAM RADIOLOGY REPORT [...] colon cancer at age 68. LOCATION: [facility] BREAST COMPOSITION: Scattered areas fibroglandular density. FINDINGS: [...] M.D. on 11/05/2022 at 10:05 Normal [facility] CT LOWER EXTREMITY WO CON RT on 06-17-2021 CT LOWER EXTREMITY WO CON RT STUDY: CT of the right hip without intravenous contrast dated 06/17/2021. INDICATION: RIGHT HIP PAIN COMPARISON: None. ACCESSION NUMBER(S): [id number] ORDERING CLINICIAN: Kameron Anthony TECHNIQUE: Axial CT [...] MRI is recommended for further assessment. Normal [facility] COVID-19 Positive/Negativeon 02-11-2021 SARS-CoV-2 (COVID-19) N gene MAULIK+probe Ql (Resp) Negative Negative [facility] Comment on above: Testing for SARS-CoV -2 by RT-PCRThis test was developed and its performance characteristics determined by [employer] and validated at the [facility]. This test has not been FDA cleared [...] (COVID-19) RNA MAULIK+probe Ql (Unsp spec) N/A [facility] Vital Signs Date Time Vital Sign Value Performing Clinician Facility 07-06-2025 11:06-0400 Body height 162.56 cm Vince Ball DO Work Phone: [facility] 07-06-2025 11:06-0400 Body mass index (BMI) [Ratio] 28.1 kg/m2 Vince Ball DO Work Phone: [facility] 07-06-2025 11:06-0400 Body weight 74.38 kg Vince Ball DO Work Phone: [facility] 07-06-2025 11:06-0400 Diastolic blood pressure 86 mm[Hg] Vince Ball DO Work Phone: [facility] 07-06-2025 11:06-0400 Heart rate 91 /min Vince Ball DO Work Phone: [facility] 07-06-2025 11:06-0400 Respiratory rate 12 /min Vince Ball DO Work Phone: [facility] 07-06-2025 11:06-0400 Systolic blood pressure 150 mm[Hg] Vince Ball DO Work Phone: [facility] 04-18-2025 14:20-0400 Body height 162.56 cm Vince Ball DO Work Phone: [facility] 04-18-2025 14:20-0400 Body mass index (BMI) [Ratio] 29.9 kg/m2 Vince Ball DO Work Phone: [facility] 04-18-2025 14:20-0400 Body weight 78.98 kg Vince Ball DO Work Phone: [facility] 04-18-2025 14:20-0400 Diastolic blood pressure 80 mm[Hg] Vince Ball DO Work Phone: [facility] 04-18-2025 14:20-0400 Heart rate 81 /min Vince Ball DO Work Phone: [facility] 04-18-2025 14:20-0400 Respiratory rate 12 /min Vince Ball DO Work Phone: [facility] 04-18-2025 14:20-0400 Systolic blood pressure 127 mm[Hg] Vince Ball DO Work Phone: [facility] 03-20-2025 14:33-0400 Body height 162.56 cm [facility] 03-20-2025 14:33-0400 Body mass index (BMI) [Ratio] 30.1 kg/m2 [facility] 03-20-2025 14:33-0400 Body weight 79.54 kg [facility] 03-20-2025 14:33-0400 Diastolic blood pressure 71 mm[Hg] [facility] 03-20-2025 14:33-0400 Heart rate 92 /min [facility] 03-20-2025 14:33-0400 Respiratory rate 12 /min [facility] 03-20-2025 14:33-0400 Systolic blood pressure 134 mm[Hg] [facility] 07-21-2024 12:37-0400 Body height 160 cm Staci Tiago DO Work Phone: [facility] 07-21-2024 12:37-0400 Body mass index (BMI) [Ratio] 27.63 kg/m2 Staci Tiago DO Work Phone: [facility] 07-21-2024 12:37-0400 Body weight 70.76 kg Staci Tiago DO Work Phone: [facility] 07-21-2024 12:37-0400 Diastolic blood pressure 79 mm[Hg] Staci Tiago DO Work Phone: [facility] 07-21-2024 12:37-0400 Heart rate 88 /min Staci Tiago DO Work Phone: [facility] 07-21-2024 12:37-0400 SaO2% (BldA) [Mass fraction] 98 % Staci Tiago DO Work Phone: [facility] 07-21-2024 12:37-0400 Systolic blood pressure 122 mm[Hg] Staci Tiago DO Work Phone: [facility] 06-01-2023 09:09-0400 Diastolic blood pressure 50 mm[Hg] DO Vince Ball Work Phone: [facility] 06-01-2023 09:09-0400 Heart rate 74 /min DO Vince Ball Work Phone: [facility] 06-01-2023 09:09-0400 Respiratory rate 16 /min DO Vince Ball Work Phone: [facility] 06-01-2023 09:09-0400 SaO2% (BldA) [Mass fraction] 99 % DO Vince Ball Work Phone: [facility] 06-01-2023 09:09-0400 Systolic blood pressure 94 mm[Hg] DO Vince Ball Work Phone: [facility] 06-01-2023 07:35-0400 Body height 162.56 cm DO Vince Ball Work Phone: [facility] 06-01-2023 07:35-0400 Body weight 74.38 kg DO Vince Ball Work Phone: [facility] 05-13-2023 09:30-0400 Body height 162.56 cm Vince Ball Other [facility] Other 05-13-2023 09:30-0400 Body mass index (BMI) [Ratio] 28.94 kg/m2 Vince Ball Other [facility] Other 05-13-2023 09:30-0400 Body weight 76.48 kg Vince Sheryl Other [facility] Other 05-13-2023 09:30-0400 Diastolic blood pressure 80 mm[Hg] Vince Ball Other [facility] Other 05-13-2023 09:30-0400 Respiratory rate 12 /min Vince Ball Other [facility] Other 05-13-2023 09:30-0400 Systolic blood pressure 119 mm[Hg] Vince Sheryl Other [facility] Other Encounters Encounter Date Encounter Type Care Provider Facility Start: 07-06-2025 End: 07-06-2025 ambulatory Vince Villegas DO Work Phone: [facility] Work Phone: Start: 07-06-2025 End: 07-06-2025 Patient encounter procedure Vince Sheryl DO -[facility] Work Phone: Start: 04-18-2025 End: 04-18-2025 ambulatory Vince Villegas DO Work Phone: [facility] Work Phone: Start: 04-18-2025 End: 04-18-2025 Patient encounter procedure Vince Villegas DO -[facility] Work Phone: Start: 03-22-2025 Non-patient / Non-visit Vince Hull daisha MONTOYA -[facility] Work Phone: Start: 03-20-2025 End: 03-20-2025 ambulatory [facility] Work Phone: Start: 03-20-2025 End: 03-20-2025 Patient encounter procedure [facility] Work Phone: Start: 11-16-2024 End: 11-16-2024 ambulatory VINCE VILLEGAS Facility:[facility] Start: 11-16-2024 End: 11-16-2024 Patient encounter procedure Drake Rivas PA-C Work Phone: Otolaryngology Comment on above: Cochlear implant fol low-up (Primary Dx); Sensorineural hearing loss, bilateral Start: 11-08-2024 End: 11-17-2024 Office outpatient visit 10 minutes Sraavanan Alcala MD Work Phone: Otolaryngology Comment on above: Cochlear implant in place (Primary Dx); Cellulitis of left external ear Start: 11-08-2024 End: 11-09-2024 ambulatory VINCE VILLEGAS Facility:[facility] Start: 11-08-2024 End: 11-08-2024 Patient encounter procedure Eda BOONE Work Phone: Audiology Comment on above: Sensorineural hearin g loss (SNHL), bilateral (Primary Dx); Cochlear implant in place Start: 10-25-2024 End: 10-26-2024 Telephone encounter Drake iRvas PA-C Work Phone: Otolaryngology Comment on above: Patient Question Start: 07-25-2024 End: 07-25-2024 Bamboo flowsheet Geraldine Christian AGENCY SERVICE REPRESENTATIVE-RN PROGRESSIVE CARE Work Phone: [facility] Start: 07-25-2024 End: 07-25-2024 Bamboo flowsheet Geraldine Christian AGENCY SERVICE REPRESENTATIVE-RN PROGRESSIVE CARE Work Phone: [facility] Start: 07-25-2024 End: 07-25-2024 Office outpatient new 45 minutes Geraldine Christian AGENCY SERVICE REPRESENTATIVE-RN PROGRESSIVE CARE Work Phone: [facility] Comment on above: Seborrheic keratosis (Primary Dx); Melanocytic nevus of trunk; Sebaceous hyperplasia of face; Capillary angioma; Other atopic dermatitis Start: 07-25-2024 End: 07-25-2024 ambulatory GERALDINE CHRISTIAN Not Available Start: 07-21-2024 End: 07-21-2024 Bamboo flowsheet Staci Tiago DO Work Phone: [facility] Start: 07-21-2024 End: 07-21-2024 Bamboo flowsheet Staci Tiago DO Work Phone: [facility] Start: 07-21-2024 End: 07-21-2024 Office outpatient new 45 minutes Staci Tiago DO Work Phone: [facility] Comment on above: Blurred vision; Chronic tension-type headache, intractable; SUNIL (obstructive sleep apnea); Numbness and tingling Start: 07-21-2024 End: 07-21-2024 ambulatory STACI TIAGO Not Available Start: 06-18-2024 Patient encounter procedure [facility] Start: 11-16-2023 End: 11-16-2023 ambulatory Vince Villegas Other [facility] Other Start: 11-16-2023 Telephone encounter Vince Villegas [facility] Start: 10-30-2023 End: 10-30-2023 ambulatory Vince Villegas Other [facility] Other Start: 10-30-2023 Telephone encounter Vince Andrews [facility] Start: 10-22-2023 End: 10-22-2023 ambulatory FLACO MONROYY Not Available Start: 10-16-2023 End: 10-16-2023 ambulatory FLACO ERVINBLEY Not Available Start: 10-14-2023 End: 10-14-2023 ambulatory FLACO MONROYY Not Available Start: 10-08-2023 End: 10-08-2023 ambulatory HANH MURGUIATERSALL Not Available Start: 10-05-2023 End: 10-05-2023 ambulatory HANH TATTERSALL Not Available Start: 10-01-2023 End: 10-01-2023 ambulatory HANH TATTERSALL Not Available Start: 09-28-2023 End: 09-28-2023 ambulatory HANH TATTERSALL Not Available Start: 09-24-2023 End: 09-24-2023 ambulatory KAREL CHINCHILLA Not Available Start: 08-10-2023 End: 08-10-2023 ambulatory Vince Villegas Other [facility] Other Start: 08-10-2023 Telephone encounter Vince PAREDES Darryl [facility] Start: 06-24-2023 End: 06-24-2023 ambulatory Vince Villegas Facility:[facility] Start: 06-24-2023 End: 06-24-2023 ambulatory DO Vince Villegas Work Phone: [facility] Work Phone: Start: 06-24-2023 End: 06-24-2023 Patient encounter procedure DO Vince Villegas Work Phone: [facility] Work Phone: Start: 06-02-2023 End: 06-02-2023 ambulatory Kalyan Guzman Other [facility] Other Start: 06-02-2023 Telephone encounter Kalyan Andrews [facility] Start: 06-01-2023 Telephone encounter Vince PAREDES [facility] Start: 06-01-2023 End: 06-01-2023 ambulatory Kalyan Guzman Facility:[facility] Start: 06-01-2023 End: 06-01-2023 Admission to same day surgery center DO Vince Villegas Work Phone: [facility]-Dig[facility] Work Phone: Start: 06-01-2023 End: 06-01-2023 ambulatory DO Vince Villegas Work Phone: [facility] Work Phone: Start: 05-25-2023 End: 05-25-2023 ambulatory Vince Villegas Other [facility] Other Start: 05-25-2023 Telephone encounter Vince Andrews [facility] Start: 05-13-2023 End: 05-13-2023 ambulatory Vince Villegas Other [facility] Other Start: 05-13-2023 Office outpatient vi sit 15 minutes Vince Villegas [facility] Start: 04-07-2023 End: 04-07-2023 ambulatory Kalyan Guzman Other [facility] Other Start: 04-07-2023 Telephone encounter Kalyan Andrews Pressure Dispatcher Start: 02-19-2023 End: 02-19-2023 ambulatory Vince Villegas Other [facility] Other Start: 02-19-2023 Nursing evaluation o f patient and report Vince Villegas [facility] Start: 11-05-2022 End: 11-06-[address] [...] on above: Result Comment: PERF ORMED BY: [place] [id number] CLEANER ESTEE KAPOOR M.D. Performed By: #### D IFF CBC, CEA, CMP #### [place] [id number] [facility] Start: 06-01-2023 Screening colonoscopy D O Vince Villegas Work Phone: Plan of Treatment Date Care Activity Detail Author Start: 2031 RSV Vaccine (1 - 1-dose 75+ series) RSV Vaccine (1 - 1-dose 75+ series) [facility] Start: 07-25-2025 End: 07-25-2025 Patient encounter procedure 07/25/2025 1:00 PM EDT Office Visit [facility] [address] [place] [id number] Geraldine Christian APRN-RN PROGRESSIVE CARE [address] [place] [address] [facility] Start: 11-16-2024 End: 11-16-2024 Patient encounter procedure 11/16/2024 1:25 PM EST Office Visit Otolaryngology [address] [place] [address] Drake Rivas PA-C [address] [facility] [address] [place] [address] CI magnet really tight and can hardly wear magnant/appt with audiology at main on 11-01-24/former Rod pt. Otolaryngology Comment on above: CI magnet really tig ht and can hardly wear magnant/appt with audiology at main on 11-01-24/former Rod pt. Start: 11-01-2024 End: 11-01-2024 Patient encounter procedure 11/01/2024 2:30 PM EST Office Visit Audiology [address] [address] Eda Malagon, AUD [address] [place], [place] [id number] CI magnet very tight Audiology Comment on above: CI magnet very tight Start: 10-19-2024 Advance Directive Discussion Advance Directive Discussion [facility] Start: 09-08-2024 End: 09-08-2024 Patient encounter procedure 09/08/2024 4:20 PM EST Office Visit [facility] [address] [place] [phone] Christine Prieto, SORAIDA [address] [place] [place] [facility] Start: 07-25-2024 End: 07-25-2024 Patient encounter procedure [facility] Comment on above: Arrived Start: 07-21-2024 End: 07-21-2024 Patient encounter procedure 07/21/2024 12:15 PM EDT Office Visit [facility] [address] [place] [address] Staci Collazo, [address] [place], [place] [id number] [facility] Comment on above: Arrived Start: 06-19-2024 Covid-19 Vaccine ( season) Covid-19 Vaccine ( season) [facility] Start: 06-19-2024 Influenza vaccination Influenza Vacc ine (#1) [facility] Start: 06-24-2023 Pneumococcal Vaccine : 50+ (3 of 3 - PCV20 or PCV21) Pneumococcal Vaccine: 50+ (3 of 3 - PCV20 or PCV21) [facility] Start: 06-24-2023 Pneumococcal Vaccine : 65+ Years (3 of 3 - PPSV23 or PCV20) Pneumococcal Vaccine: 65+ Years (3 of 3 - PPSV23 or PCV20) [facility] Start: 06-01-2023 End: 06-01-2023 [facility] Start: 06-01-2022 Diabetes Screening Diabetes Screenin g [facility] Start: 2021 Screening for osteoporosis Bone Density Screening [facility] Start: 2006 Shingrix Vaccine (1 of 2) Shingrix Vaccine (1 of 2) [facility] Start: 2001 Lipid panel Lipid Screening [facility] Start: 2001 Screening for malignant neoplasm of colon [facility] Start: 1996 Screening for malignant neoplasm of breast [facility] Start: 1975 Urine microalbumin profile DTaP,Tdap,Td Vaccine (1 - Tdap) [facility] Start: 1974 Annual PCP Team Chronic Disease Visit Annual PCP Team Chronic Disease Visit [facility] Start: 1974 Anxiety Screening Anxiety Screening [facility] Start: 1974 Depression Screening Depression Scre ening [facility] Start: 1974 Hepatitis C screening Hepatitis C Sc mikel [facility] Start: 1956 Screening for malignant neoplasm of colon [facility] metabolic 1999 panel - Serum or Plasma [facility] Comprehensive metabolic 1999 panel - Serum or Plasma [facility] Patient Education Colon polyps Hemorrhoids (DC) Diverticulosis (DC) [facility] Work Phone: [facility] Immunizations Immunization Date Immunization Notes Care Provider Danish walden 10-05-2021 COVID-19 Vaccine Pfi zer - Documentation Purposes Only Kalyan Guzman Other [facility] 04-04-2021 COVID-19 Vaccine Pfi zer - Documentation Purposes Only Kalyan Guzman Other [facility] 03-14-2021 COVID-19 Vaccine Pfi zer - Documentation Purposes Only Kalyan Guzman Other [facility] 06-24-2018 pneumococcal polysaccharide vaccine, 23 valent Kalyan Guzman Other [facility] 02-01-2018 pneumococcal conjuga te vaccine, 13 valent Kalyan Guzman Other [facility] Other Payers Date Payer Category Payer Medicare [id number] 2021 Unknown [id number] 1958 Medicare [id number] 1959 Self-pay [id number] 1959 Unknown [id number] 1955 Unknown [id number] 2.16.84 [id number] 1955 Unknown [id number] 2.16.84 [id number] 1955 Unknown [id number] 2.16.84 0.1.844992.3.579.2.593 1955 Unknown [id number] 2.16.84 0.1.290973.3.579.2.1259 1955 Unknown [id number] 2.16.84 0.1.038921.3.579.2.1259 1955 Unknown [id number] 2.16.840 .1.908206.3.579.2.1259 1955 Unknown [id number] 2.16.840 .1.243651.3.579.2.1259 1955 Unknown [id number] 2.16.840 .1.692937.3.579.2.1259 1955 Unknown [id number] 2.16.840 .1.351249.3.579.2.1259 1955 Unknown [id number] 2.16.840 .1.852436.3.579.2.1259 1955 Unknown [id number] 2.16.840 .1.575532.3.579.2.1259 1955 Unknown [id number] 2.16.840 .1.297034.3.579.2.1259 1955 Unknown [id number] 2.16.840 .1.919238.3.579.2.1259 Medicaid [id number] Unknown [id number] 2.16.8 [id number] Unknown [id number] 2.16.8 [id number] Social History Date Type Detail Facility Tobacco smoking stat us WYIS Unknown if ever smoked [facility] Start: 1955 Sex Assigned At Female [facility] Start: 06-16-2023 End: 11-01-2024 Sex Assigned At [facility] Start: 02-23-2018 End: 06-01-2023 Tobacco smoking status NHIS Never smoked tobacco (finding) [facility] Start: 02-23-2018 End: 06-16-2023 Tobacco use and exposure Smokeless tobacco non-user [facility] Start: 06-16-2023 End: 07-25-2024 Alcoholic beverage intake Current drinker of alcohol (finding) [facility] Start: 06-16-2023 End: 11-01-2024 History of Social function [facility] Start: 06-09-2019 Gender identity Identifies as female gender (finding) [facility] Start: 07-04-2020 Alcoholic beverage intake Current non-drinker of alcohol (finding) [facility] Adult Depression Screening Assessment 0 [facility] Start: 06-09-2019 Sexual orientation Heterosexual (finding) [facility] Start: 03-20-2025 Sex Female (finding) [facility] Medical Equipment Procedure Code Equipment Code Equipment Original Text Equipment Identifier Dates Implant Nucleus Cochlear Slim Modiolar Electrode [id number] Sterile Latex Free - [id number] Start: 03-01-2018 Ogp-Pf-Z-Kind Implant - [id number] Start: 03-01-2018 Comment on above: Description: [employer] Goals Date Patient Goal Desired Activity /State Clinical Notes 02-19-2023 to 04-18-2025 Note Date & Type Note Facility 04-18-2025 Evaluation note Diagnosis Onset Date Resolution Fibromyalgia syndrome acute Apr 1:59pm Overweight acute April 18, 2025 1:59pm Chronic venous insufficiency of lower extremity acute July 06, 2025 10:58am Colon polyps acute July 062024 10:58am Hypothyroid acute June 10:58am Medicare annual wellness visit, subsequent acute June 10:58am SUNIL (obstructive sleep apnea) acute July 06, 2025 10:58am Screening mammogram for breast cancer acute July 06, 2025 10:58am [facility] Work Phone: 1(257) 939-335006-02-2025 Evaluation note* Diagnosis Onset Date Resolution Status Admit Date Fatigue acute March 20, 2025 2:27pm Inflammatory arthritis acute 2024 2:27pm Myalgia acute March 20, 2025 2:27pm Obesity acute March 20, 2025 2:27pm Fatigue acute April 18, 2025 1:59pm Myalgia acute April 18, 2025 1:59pm Overweight acute April 18, 2025 1:59pm [facility] Work Phone: 1(750) 732-545501-30-2025 NoteHNO ID: [id number] Author: SARAVANAN ALCALA MD Service: ? Author Type: Physician Type: Progress Notes Filed: 11/17/2024 08:49 Note Text: Sharri was seen at the request of Ericka Diaz regarding concerns about her implant site and erythema and irritation over her magnet She reports significant weight loss of approximately 15 lbs or more recently Has not changed magnet strength ON exam, there is some irritation and erythema over the skin that is otherwise intact. No ulcers, no breakdown Recommend the following Apply bacitracin Start Keflex preventively Apply felt disc to magnet Follow up in one [facility] with [facility]01[facility]30[facility]2025 History of Present illness Narrative* Saravanan Alcala MD - 11/17/2024 8:45 AM EST Sharri was seen at the request of Ericka Diaz regarding concerns about her implant site and erythema and irritation over her magnet She reports significant weight loss of approximately 15 lbs or more recently Has not changed magnet strength ON exam, there is some irritation and erythema over the skin that is otherwise intact. No ulcers, no breakdown Recommend the following Apply bacitracin Start Keflex preventively Apply felt disc to magnet Follow up in one week with [facility] Instructions* Patient Instructions* Drake Rivas PA-C - 11/16/2024 1:[address] Saravanan Alcala's name for your current cochlear implant surgeon from any paperwork from cochlear documented in this [facility] NoteHNO ID: [id number] Author: DRAKE RIVAS PA-C Service: ? Author Type: Physician Lieutenant Colonel Type: Progress Notes Filed: 11/16/2024 14:27 Note Text: History of Present Illness Ms. SHARRI ATWOOD is a 69 year old female S/p left sided cochlear implant by Dr. Velasco in 2018. Chief Complaint: Follow-up for left CI magnet skin breakdown Last seen 11/08/[address] Alcala who prescribed a 7 day course of keflex and mupirocin ointment. Dr. Veras, [facility] also reduced her magnet strength to a 2 and put foam tape over it. She had not been evaluated by [facility] otology since 2018 previously. She reports over the past ~year has been experiencing pain and redness at the magnet site interfering with her ability to wear the cochlear implant. Since last seen, Reports rapid improvement in pain and redness. She put the magnet on today and is not experiencing any pain, the magnet is staying in place. ALLERGIES Allergen Reactions Bandaids [Other] Oxycodone Vomiting Current Outpatient Medications on File Prior to Visit Medication Sig mupirocin (BACTROBAN) 2 % ointment Apply to affected area two times a day. levothyroxine 25 mcg cap Take 25 mcg by mouth daily before breakfast. ACETAMINOPHEN/CAFFEINE (EXCEDRIN TENSION HEADACHE ORAL) Take by mouth as needed. levothyroxine (SYNTHROID) 100 mcg tablet Take 100 mcg by mouth. progesterone micronized 100 mg capsule Take 100 mg by mouth once daily. No current facility-administered medications on file prior to visit. Objective: There were no vitals taken for this visit. Appearance: Non-syndromic, cooperative and calm Communication: Voice has adequate volume; there is no stridor Head/Face: head and facial contours are symmetric Facial nerve 1/6 bilateral Skin: no skin lesions or scarring on face Ears: AD Magnet site skin is healthy and not erythematous or swollen, there is a small area of central crusting that appears reduced from the before picture I was shown on the patient's phone. Nose: external exam with straight profile Oral Cavity: Normal dentition Oropharynx: Uvula hangs midline; mucosa is pink and moist; tonsils present Neck: no LAD; thyroid without masses or enlargement Lymphatic: No lymphadenopathy or masses Neuro/Psych.: Alert and Oriented x 3 Cranial nerves intact Assessment: Z48.89, Z96.21 Cochlear implant follow-up (primary encounter diagnosis) H90.3 Sensorineural hearing loss, bilateral Skin breakdown resolving with appropriate magnet strength. Plan: 1. Follow-up within 2-3 years to stay medically established with Dr. Alcala. Patient is medically clear for any device upgrade or replacement parts. Drake Rivas PA-C Otology Medical Decision Making: Problems: Low: Stable chronic illness Risk: Minimal: Minimal risk from testing/treatment Medical Decision Making Level: [facility] of Present illness Narrative* Drake Rivas PA-C - 11/16/2024 1:23 PM EST History of Present Illness Ms. SHARRI ATWOOD is a 69 year old female S/p left sided cochlear implant by Dr. Velasco in 2018. Chief Complaint: Follow-up for left CI magnet skin breakdown Last seen 11/08/[address] Alcala who prescribed a 7 day course of keflex and mupirocin ointment. Rob Huber also reduced her magnet strength to a 2 and put foam tape over it. She had not been evaluated by [facility] otology since 2018 previously. She reports over the past ~year has been experiencing pain and redness at the magnet site interfering with her ability to wear the cochlear implant. Since last seen, Reports rapid improvement in pain and redness. She put the magnet on today and is not experiencing any pain, the magnet is staying in place. ALLERGIES Allergen Reactions Bandaids [Other] Oxycodone Vomiting Current Outpatient Medications on File Prior to Visit Medication Sig mupirocin (BACTROBAN) 2 % ointment Apply to affected area two times a day. levothyroxine 25 mcg cap Take 25 mcg by mouth daily before breakfast. ACETAMINOPHEN/CAFFEINE (EXCEDRIN TENSION HEADACHE ORAL) Take by mouth as needed. levothyroxine (SYNTHROID) 100 mcg tablet Take 100 mcg by mouth. progesterone micronized 100 mg capsule Take 100 mg by mouth once daily. No current facility-administered medications on file prior to visit. Objective: There were no vitals taken for this visit. Appearance: Non-syndromic, cooperative and calm Communication: Voice has adequate volume; there is no stridor Head/Face: head and facial contours are symmetric Facial nerve 1/6 bilateral Skin: no skin lesions or scarring on face Ears: AD Magnet site skin is healthy and not erythematous or swollen, there is a small area of central crusting that appears reduced from the before picture I was shown on the patient's phone. Nose: external exam with straight profile Oral Cavity: Normal dentition Oropharynx: Uvula hangs midline; mucosa is pink and moist; tonsils present Neck: no LAD; thyroid without masses or enlargement Lymphatic: No lymphadenopathy or masses Neuro/Psych.: Alert and Oriented x 3 Cranial nerves intact Assessment: Z48.89, Z96.21 Cochlear implant follow-up (primary encounter diagnosis) H90.3 Sensorineural hearing loss, bilateral Skin breakdown resolving with appropriate magnet strength. Plan: 1. Follow-up within 2-3 years to stay medically established with Dr. Alcala. Patient is medically clear for any device upgrade or replacement parts. Drake Rivas PA-C Otology Medical Decision Making: Problems: Low: Stable chronic illness Risk: Minimal: Minimal risk from testing/treatment Medical Decision Making Level: 2 - Straightforward documented in this [facility]-21-[facility]25 History of Present illness Narrative* Eda Malagon AUD - 11/08/2024 1:00 PM EST Head and Neck [place] [facility] COCHLEAR IMPLANT ADULT PROGRAMMING Name: Sharri BERNSTEINF#:[id number] Date of Service: 10/30/2024 Date of : 1955 Age: [age] year old COCHLEAR IMPLANT INFORMATION (see below for all device details) RIGHT ear: Joni Paz B90-13 [employer] and managed at an outside facility. LEFT ear: External Processor Cochlear [employer] [id number] (Nucleus 7) Processor SN [id number] Magnet Strength 2 Internal Device Cochlear CI532 Profile with Slim Modiolar Electrode Array Internal Device SN [id number] Inactive electrodes 1-5, 22-21 (non-auditory percept; pressure) [...] while now. * Previous audiologic evaluation at [facility] on 03/29/2018 was most recent hearing evaluation. She indicated that she has not seen her hearing aid park worker supervisor for programming since 2016. * Microphone covers last changed in early August 2024. * Last Otology visit date: 03/29/2018 * Problems noted with the equipment: recently attempted to replace coil, but spare coil was corroded and when placed on the processor sound was intermittent. She stated that she reached out to [employer] and they sent her a new coil. AIDED AUDIOMETRIC TESTING: Deferred as state of magnet site required medical evaluation and cochlear implant non-use was recommended. COCHLEAR IMPLANT PROGRAMMING/TROUBLESHOOTING: Troubleshooting: Magnet changed from a 2 to a 1 (from stock) with soft pad added. Patient was givena supply of soft pads and counseled on moleskin as a secondary option. LEFT Programming: Magnet site was checked with significant redness and skin irritation visualized (see pictures associated with today's visit in scanned docs) Patient was added on same-day to be seenby Saravanan Alcala MD. No programming changes made [...] return for a hearing aid check with chief strategy officer for maintenance and potential programming needs. * Continue to monitor magnet/incision site for pain, redness, swelling, scabbing etc. Should statusof magnet site worsen contact the office immediately. [...] to: Drake Rivas PA-C. documented in this encounter[facility]01-21-2025 NoteHNO ID: [id number] Author: EDA MALAGON AUD Service: ? Author Type: Certified Court Interpreter Type: Progress Notes Filed: 11/08/2024 15:26 Note Text: Head and Neck [place] [facility] COCHLEAR IMPLANT ADULT PROGRAMMING Name: Sharri Atwood [facility]#:[id number] Date of Service: 10/30/2024 Date of : 1955 Age: [age] year old COCHLEAR IMPLANT INFORMATION (see below for all device details) RIGHT ear: Phonak Audeo B90-13 [employer] and managed at an outside facility. LEFT ear: External Processor Cochlear [employer] [id number] (Nucleus 7) Processor SN [id number] Magnet Strength 2 Internal Device Cochlear CI532 Profile with Slim Modiolar Electrode Array Internal Device SN [id number] Inactive electrodes 1-5, 22-21 (non-auditory percept; pressure) Surgery Date 03/01/2018 Initial activation date 03/30/2018 Surgeon Hope Velasco M.D. Accessories: Remote Control Mini Microphone 2+ Phone Clip Aqua+ Kit HISTORY: Sharri Rina Atwood was seen for troubleshooting of the [...] while now. * Previous audiologic evaluation at [facility] on 03/29/2018 was most recent hearing evaluation. She indicated that she has not seen her hearing aid park worker supervisor for programming since 2016. * Microphone covers last changed in early August 2024. * Last Otology visit date: 03/29/2018 * Problems noted with the equipment: recently attempted to replace coil, but spare coil was corroded and when placed on the processor sound was intermittent. She stated that she reached out to [employer] and they sent her a new coil. [...] return for a hearing aid check with chief strategy officer for maintenance and potential programming needs. * [...] Rob Santa, GENNARO/A copied to: Drake Rivas PA-C.[facility]01-08-2025 Telephone encounter Note* Telephone Encounter - Mery Mcgowan - 10/26/2024 11:16 AM EST Patient scheduled 11/01 HAC at [facility] for the cochlear and PSS explained that Drake Rivas appointmenthas needed to get established. [facility]01-08-[facility] Miscellaneous Notes* Telephone Encounter - Mery Mcgowan - 10/26/2024 11:16 AM EST Patient scheduled 11/01 HAC at [facility] for the cochlear and PSS explained that Drake Rivas appointmenthas needed to get established. * Telephone Encounter - Claus Nicholson RN - 10/25/2024 3:26 PM EST PSS: see the FYI tab and call patient. * Telephone Encounter - Tiffanie Cheung - 10/25/2024 3:10 PM EST Patient returned your call and can be reached at: Call patient at: on cell [phone] (home) [phone] (cell) documented in this encounter[facility]01-07-2025 Telephone encounter Note * Telephone Encounter - Claus Nicholson RN - 10/25/2024 3:26 PM EST PSS: see the FYI tab and call patient. [facility]01-[facility] Telephone encounter Note* Telephone Encounter - Tiffanie Cheung - 10/25/2024 3:10 PM EST Patient returned your call and can be reached at: Call patient at: on cell [phone] (home) [phone] (cell) [facility]10-[facility] History of Present illness Narrative* Geraldine Christian, KIM-RN PROGRESSIVE CARE - 07/25/2024 9:55 AM EDT Skin Check Location: Patient requests a full body skin examination Dermatologic history: no history of skin cancer, no history of atypical moles, no family history ofmelanoma Lesions: Location: left lower leg Duration: long [...] that can be controlled but not cured. StartTAC 0.01% cream bid prn when flared, hold if smooth/asymptomatic. Encouraged daily moisturizing andgentle cleansers to prevent flares. Recommended CereVe moisturizing cream and Dove sensitive soap cash dy wash. Notify office if flaring despite treatment. triamcinolone (Kenalog) 0.1 % cream - Ankles Apply to affected areas, up to twice a day when flared, do not use one the face, groin, or underarms, 30 day supply Next Visit: 1 year, skin check documented in this encounterMineral Area [facility] Medical [id number] History of Present illness Narrative* Staci Collazo DO - 07/21/2024 12:15 PM EDT Images from the original note were not included. No chief complaint on file. Subjective Sharri Atwood, 68 y.o., female being seen in Neurology consultation at the request of Dr. Villegas. Numbness and tingling, blurred vision, headaches, facial pain, unsteadiness - CT brain, [place] [facility]; referral received from Dr Vince Villegas DO This started about 1+ years ago. [...] Left 08/[address] Asad Rocha [phone] COLONOSCOPY 12/2015 Dr Fortunato qAuino [facility] [phone] COLONOSCOPY 06/01/2023 EXCISION 01/2017 Excision sebaceous cyst left breast Dr Fortunato Aquino [phone] LAMINECTOMY 03/1989 L5 - Dr Asad Carcamo [phone] LAMINECTOMY Bilateral 08/2015 L4 -Dr Asad Carcmao [facility]STANVIR [place] [place] BREAST REDUCTION 10/2015 Dr Carlitos Blood [phone] [place] LIGATN LONG SAPHENOUS VEIN AT SEPH-FEM JUNC 09/2013 Long Saphenous venin stripped right leg - Dr Drake Ballard [phone] [place] RELEASE OF BIG TOE TENDN 03/2016 Abductor Tear Repair left Hip Dr Benjamin Anthony [phone] VAGINAL HYSTERECTOMY W/ ANTERIOR AND POSTERIOR VAGINAL [...] does have a cochlear implant and I suspectsome of that is related to the vestibular issues. The patient admits that she is only sleeping about 5-6 hours at the most at night. 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 I suspect much of these nonspecific symptoms are related to sleep deprivation. The headacheand blurred vision Are very common with sleep deprivation. It is unclear about the other symptoms but I would like her to get more hours of sleep and see what symptoms improve and what do not. She also has obstructive sleep apnea. She had a home sleep study and is scheduled for the titration study.She does not remember what her AHI was. However having sleep apnea (poor quality sleep) on top of sleep deprivation is likely the cause for many of her symptoms. Her PCP notes states that she was to have a CT of the head. She is not sure if she had that we willtry to track it down. It would be [...] to clinic: 6 weeks documented in this [facility]08-15-2023 Evaluation note* Encounter Date Diagnosis Assessment Notes Treatment Notes Treatment Clinical Notes May, Mass of colon (ICD-10 - K63.89) [facility]* Encounter Date Diagnosis Assessment Notes Treatment Notes Treatment Clinical Notes May, Overweight (ICD-10 - E66.3) [facility] Other 07-26-2023 Evaluation note* Encounter Date Diagnosis [...] Apr, Other specified hypothyroidism (ICD-10 - E03.8) [facility] Other 05-04-2023 Evaluation note* Encounter Date Diagnosis Assessment Notes Treatment Notes Treatment Clinical Notes February, Seasonal allergic conjunctivitis (ICD-10 - H10.10) February, Seasonal allergic rhinitis due to pollen (ICD-10 - J30.1) [facility] Other Evaluation noteNo Assessments Information Available [facility] noteNo InformationNortDepartment of Veterans Affairs [facility] Other Evaluation noteNo assessment information available [facility] Work Phone: Evaluation note* Diagnosis Blurred vision Other specified visual disturbances Chronic tension-type headache, intractable Chronic tension type headache SUNIL (obstructive sleep apnea) Obstructive sleep apnea (adult) (pediatric) Numbness and tingling Disturbance of skin sensation documented in this encounter [facility] Healthcare[facility]* Diagnosis Seborrheic keratosis- Primary Melanocytic nevus of trunk Benign neoplasm of skin of trunk, except scrotum Sebaceous hyperplasia of face Capillary angioma Nevus, non-neoplastic Other atopic dermatitis documented in this encounter [facility] HealthcareEvaluation note* Diagnosis Sensorineural hearing loss (SNHL), bilateral- Primary Cochlear implant in place Other postprocedural status [facility] Diagnosis Cochlear implant follow-up- Primary Other specified aftercare following surgery Sensorineural hearing loss, bilateral documented in this encounter [facility]* Diagnosis Cochlear implant in place- Primary Other postprocedural status Cellulitis of left external ear Infective otitis externa, unspecified documented in this encounter [facility]* Diagnosis Onset Date Resolution Status Admit Date Fatigue acute March 20, 2025 2:27pm Inflammatory arthritis acute Ju 2024 2:27pm Myalgia acute March 20, 2025 2:27pm Obesity acute March 20, 2025 2:27pm [facility] Work Phone: History and physical note Author Kalyan Guzman [facility] June 01, 2023 8:14am Note Date/Time June 01, 2023 8: 14am [facility] EN[facility] [address] [place] [address] Gastroenterology H&P Signed Patient: Sharri Atwood MR#: [id number] : 1955 Acct:[id number] Age/Sex: 67 / F Adm Date: 3 Loc: Room: Type: [facility] Attending Dr: Kalyan Guzman MD [...] <Electronically signed by Kalyan Guzman MD> 06/01/23813 [facility] Work Phone: History general Narrative - Reported* Type Description Date Medical History Dysphagia, unspecified type Medical History Seasonal allergic rhinitis due t o pollen Medical History Other specified hypothyroidism Medical History Autoimmune thyroiditis Medical History Thrombocytopenia Medical History Sensorineural hearing loss (SNHL ) of both ears Surgical History LUMBAR LAMINECTOMY 1988 Surgical History VAGINAL TAPING PROCEDURE 2007 Surgical History BLADDER SUSPENSION 2013 Surgical History RIGHT LOWER EXTR VEIN STRIPPING 2013 Surgical History BUNIONECTOMY LEFT FOOT Surgical History BREAST REDUCTION SURGERY 2016 Surgical History COLONOSCOPY 2016 Surgical History EGD Hospitalization History SEE SURGICAL [facility] Other Hiszd[facility] general Narrative - Reported* Type Description Date Surgical History LUMBAR LAMINECTOMY 1988 Surgical History VAGINAL TAPING PROCEDURE 2006 Surgical History BLADDER SUSPENSION 2013 Surgical History RIGHT LOWER EXTR VEIN STRIPPING 2013 Surgical History BUNIONECTOMY LEFT FOOT Surgical History BREAST REDUCTION SURGERY 2016 Surgical History COLONOSCOPY 2016 Surgical History EGD Hospitalization History SEE SURGICAL [facility] Other Hismxwb general Narrative - Reported* Type Description Date [...] Surgical History EGD Hospitalization History SEE SURGICAL [facility] Other Hismjmt general Narrative - Reported* Type Description Date [...] CT abd/pelvis) 05/2023 Hospitalization History SEE SURGICAL HX [facility] Other History general Narrative - Reported* Type [...] 1 year) 07/2023 Hospitalization History SEE SURGICAL [facility] Other Hospital Discharge instructions Additional Instructions DISCHARGE [...] problems. -Follow up with PCP. -Office number [phone].[facility] Work Phone: reason for referral (narrative)No reason for referral information availableKettering Health [facility] Work Phone: reason for visit Narrative* Consultation (Routine) - Closed Specialty Diagnoses / Procedures Referred By Contac t Referred To Contact Neurology Diagnoses Paresthesia of skin Headache, unspecified Other visual disturbances Atypical facial pain (CMS/HCC) Anesthesia of skin Unsteadiness on feet Procedures [place] OFFICE/OUTPATIENT NEW LOW MDM 30 MINUTES Vince Villegas MD [address] [place] [address] Alis Arellano MD [address] [place] [address] Referral ID Status Reason Start Date Expiration Date V isits Requested Visits Authorized [id number] Closed Consult and Treat 06/22/2024 12/19/2024 1 1 [facility] Advance Directives Advance Directive Response Recorded Date/ Time Advance Directives No February 06, 021 10:29am Chief Complaint and Reason for Visit Chief Complaint Dysphagia Chief Complaint Screening Chief Complaint Screening K63.86 Chief Complaint Admit Date Right Shoulder Bug Bite, very sore March 20, 2025 2:27pm Reason for Visit Admit Date Fatigue March 20, 2025 2:27p m Inflammatory arthritis March 20, 2025 2: 27pm Myalgia March 20, 2025 2:27p m Obesity March 20, 2025 2:27p m Chief Complaint Admit Date Right Shoulder Bug Bite, very sore March 20, 2025 2:27pm 1 month f/u April 18, 2025 1:59p m Reason for Visit Admit Date Fatigue March 20, 2025 2:27p m Inflammatory arthritis March 20, 2025 2: 27pm Myalgia March 20, 2025 2:27p m Obesity March 20, 2025 2:27p m Fatigue April 18, 2025 1:59p m Myalgia April 18, 2025 1:59p m Overweight April 18, 2025 1:59p m Chief Complaint Admit Date 1 month f/u [...] for breast cancer Se ptember 2024 10:58am Summary Purpose Family History Relationship Condition Age at Onset Recorded Date/T parag grandparent Malignant neoplasm of colon Unknown Not Specified Malignant neoplasm of breast Unknown Relationship Condition Age at Onset Recorded Date/T parag grandparent Malignant neoplasm of colon Unknown mother Malignant neoplasm of breast Unknown Malignant neoplasm Unknown Diabetes mellitus Unknown Additional Source Comments INFORMATION SOURCE (unrecogn ized section and content) DATE CREATED AUTHOR 06/17/2021 [facility] DATE CREATED AUTHOR AUTHOR'S ORGANIZ ATION 01/24/2023 [facility] DATE CREATED AUTHOR AUTHOR'S ORGANIZ ATION 07/05/2023 [facility] DATE CREATED AUTHOR AUTHOR'S ORGANIZ ATION 07/26/2024 [facility] dical [facility] DATE CREATED AUTHOR AUTHOR'S ORGANIZ ATION 11/18/2024 [facility] REASON FOR VISIT (unrecogniz ed section and content) Reason Comments Skin Check Reason Comments Patient Question Reason Comments Hearing Loss Reason Comments New Patient Care Teams (unrecognized sec tion and content) Team Status: Active Member Role Status Dates Vince Villegas DO Primary Care Provider Active Team Status: Inactive Member Role Status Dates Vince Villegas DO Primary Care Provider Active Kalyan Guzman MD Attending Provider Active [place] Relationship Specialty Start Date End Date Vince Villegas MD [address] [place] [id number] PCP - General Internal Medicine 06/03/23 [place] Relationship Specialty Start Date End Date Vince Villegas MD [address] [place] [id number] PCP - General Internal Medicine 06/03/23 [place] Relationship Specialty Start Date End Date Vince Villegas MD [address] [place] [phone] PCP - General Internal Medicine 06/03/23 [place] Relationship Specialty Start Date End Date Vince Villegas MD [address] [place] [id number] PCP - General Internal Medicine 06/03/23 [place] Relationship Specialty Start Date End Date Vince Villegas DO [address] [facility] [place] [address] PCP - General Internal Medicine 05/19/19 [place] Relationship Specialty Start Date End Date Vince Villegas DO [address] [place] [address] PCP - General Internal Medicine 05/19/19 [place] Relationship Specialty Start Date End Date Vince Villegas DO [address] [place] [address] PCP - General Internal Medicine 05/19/19 Team Status: Inactive Member Role Status Dates Vince Ball , DO Primary Care Provide r, Attending Provider Active Start: March 20, 2025 End: March 20, 2025 Team Status: Inactive Member Role Status Dates Vince Ball , DO Primary Care Provider Active Start: March 20, 2025 End: March 20, 2025 Vince Ball , DO Attending Provider Active Sta rt: March 20, 2025 End: March 20, 2025 Team Status: Active Member Role Status Dates Vince Ball , DO Primary Care Provider Active Start: March 22, 2025 Vince Ball , DO Attending Provider Active Sta rt: March 22, 2025 Team Status: Inactive Member Role Status Dates Vince Ball , DO Primary Care Provider Active Start: April 18, 2025 End: April 18, 2025 Vince Ball , DO Attending Provider Active Sta rt: April 18, 2025 End: April 18, 2025 Team Status: Inactive Member Role Status Dates Vince Ball , DO Primary Care Provider Active Start: July 06, 2025 End: July 06, 2025 Vince Ball , DO Attending Provider Active Sta rt: July 06, 2025 End: July 06, 2025 Source Comments (unrecognize d section and content) In the event this informatio n is protected by the Federal Confidentiality of Alcohol and Drug Abuse Patient Records regulations: The Federal rules restrict any use of the information to criminally investigate or prosecute any alcohol or drug abuse patient.[facility] the event this information is protected by the Federal Confidentiality of Alcohol and Drug Abuse Patient Records regulations: The Federal rules restrict any use of the information to criminally investigate or prosecute any alcohol or drug abuse patient.[facility] the event this information is protected by the Federal Confidentiality of Alcohol and Drug Abuse Patient Records regulations: The Federal rules restrict any use of the information to criminally investigate or prosecute any alcohol or drug abuse patient.[facility] the event this information is protected by the Federal Confidentiality of Alcohol and Drug Abuse Patient Records regulations: The Federal rules restrict any use of the information to criminally investigate or prosecute any alcohol or drug abuse patient.[facility] Goals (unrecognized section and content) Goals may be documented in a n alternate section FOR RECORDS PERTAINING TO PATIENTS WHO ARE [...] BE BASED ON THE PRIMARY CLINICAL RECORDS. [facility] [employer] [facility]. provides no warranty or guarantee of the accuracy or completeness of information in this document.
[2025-07-06 14:35] LABS: Hematocrit 39.9 % (36.0-48.0); Hemoglobin 12.8 g/dL (12.0-16.0); Immature Granulocytes Abs Auto 0.02 10^3/uL (0.00-0.03); Immature Granulocytes Pct Auto 0.4 % (0.0-0.5); Lymphocytes Absolute Auto 1.5 10^3/uL (1.2-3.8); Mean Corpuscular HGB Conc 32.1 g/dL (29.9-35.2); Mean Corpuscular Hemoglobin 28.8 pg (26.7-34.0); Mean Corpuscular Volume 89.9 fL (81.0-99.0); Platelet Count 169 10^3/uL (150-450); Red Blood Count 4.44 10^6/uL (4.20-5.40); White Blood Count 5.4 10^3/uL (4.0-11.0)
[2025-07-06 15:08] LABS: Albumin Globulin Ratio 1.0; Albumin Level 3.5 g/dL (3.4-5.0); Alkaline Phosphatase 102 U/L (46-116); Anion Gap 11.8; Aspartate Amino Transferase 17 U/L (15-37); Blood Urea Nitrogen 18.0 mg/dL (7.0-18.0); Calcium 9.4 mg/dL (8.5-10.1); Carbon Dioxide 25.9 mmol/L (21.0-32.0); Chloride 109 mmol/L (98-107); Estimated GFR (African America >60 (>=60 mL/min/1.73m^2); Estimated GFR (Non-African Ame >60 (>=60 mL/min/1.73m^2); Globulin 3.4 g/dL; Glucose 89 mg/dL (74-106); Potassium 3.7 mmol/L (3.5-5.1); Sodium 143 mmol/L (136-145); Thyroid Stimulating Hormone 0.666 uIU/mL (0.358-3.740); Total Protein 6.9 g/dL (6.4-8.2)
[2025-07-06 15:30] LABS: Alanine Aminotransferase 15 U/L (14-59)
== END 2025-07-06 14:12 | disposition home or self-care (01) ==
LOC: LAB 14:12
PROVIDERS: PCP Internal Medicine; Visit Provider Internal Medicine
DX: E06.3 Autoimmune thyroiditis (principal); R53.83 Other fatigue; Z79.899 Other long term (current) drug therapy
CPT/HCPCS: 36415; 80053; 84443; 85025